=== PATIENT | female | born 1935 | race Caucasian/White ===

== ENCOUNTER 2020-11-20 09:49 | Outpatient (CLI) | payer MEDICARE, OTHER, SELFPAY ==
--- NOTE | 2020-11-20 10:15 | USCV_ITS ---
Wilfrido Olga Age: 85 Gender: F : 1935 Exam Date: 11/20/2020 10:01 Ordering Phys: Greta Akers MD ([email or web address]) Technologist: Monique Joyner Exam Location: [facility] [place] Indication: RECHECK OF CCA STENOSIS Risk Factors: Unknown Previous Vascular Surgery: None Right Brachial BP: / Left Brachial BP: / Right Left Velocity (cm/s) Spectral Plaque Velocity (cm/s) Spectral Plaque Syst/Diast Broadening Syst/Diast Broadening 67.10/ 9.00 Prox CCA 104.80/ 15.00 56.10/ 12.10 Mid CCA 61.40 / 12.40 119.40/18.20 Distal CCA 74.60 / 11.70 102.20/22.50 Prox ICA 119.60/ 34.20 104.90/25.70 Mid ICA 57.20 / 17.30 80.10/ 21.40 Distal ICA 74.40 / 18.20 101.20 ECA 164.70 0.88 ICA/CCA 1.14 Retrograde Vertebral Antegrade / cm/s 67.90/ 14.60 cm/s Bi Subclavian Tri 71.20 91.20 FINDINGS Moderate heterogeneous plaques of the right bifurcation and proximal internal carotid artery. Retrograde flow in the right vertebral artery. Delayed peaking monophasic waveforms in the left vertebral artery. Moderate heterogeneous plaques at the left bifurcation and proximal internal carotid artery Intimal thickening in the common carotid arteries bilaterally CONCLUSIONS 1. Moderate heterogeneous plaques at the bifurcations and proximal internal carotid arteries bilaterally suggesting less than 50% stenosis. 2. Retrograde flow in the right vertebral artery suggestive of high-grade stenosis in the proximal right subclavian artery 3. Abnormal Doppler flow signal seen in the left vertebral artery, suggestive of hemodynamically significant stenosis Consider CTA, to better evaluate the aortic arch vessels, especially the proximal segments. Compared to the study from 05/18/2019, the changes in the vertebral artery flow signals appear to be new Dr Greta Akers MD [facility] (Electronically Signed) Final Date: 21 November 2020 09:14 S
== END 2020-11-20 09:50 | disposition home or self-care (01) ==
PROVIDERS: PCP Family Medicine; Visit Provider Internal Medicine Cardiovascular Disease
DX: I77.9 Disorder of arteries and arterioles, unspecified (principal); I65.23 Occlusion and stenosis of bilateral carotid arteries
CPT/HCPCS: 93880

== ENCOUNTER 2020-11-23 12:47 | Outpatient (CLI) | payer MEDICARE, OTHER, SELFPAY ==
--- NOTE | 2020-11-23 13:00 | CT_ITS ---
WS: [id number] CT ANGIOGRAM CEREBRAL AND CAROTID ARTERIES HISTORY: I65.23 - Occlusion and stenosis of bilateral carotid arteries TECHNIQUE: CT angiogram is performed of the carotid and cerebral arteries. During arterial injection imaging is obtained from the skull vertex to the aortic arch in 1.25 mm imaging. Coronal and sagittal reformats are submitted. Additional multi planar reformats of the carotid and cerebral arteries are submitted, MIP imaging also reviewed. NASCET criteria utilized. All CT scans at [facility] use at least one of these dose optimization techniques: automated exposure control; mA and/or kV ad justment per patient size (includes targeted exams where dose is matched to clinical indication); or iterative reconstruction. CONTRAST: Visipaque 320; 95 mL IV. DLP: 1951.83 mGycm COMPARISON: None available. Noncontrast CT head. No acute hemorrhage. Moderate atrophy resulting in mild increase in the extra-ax ial spaces. Extensive atherosclerosis through the intracranial carotid arteries. Carotid Angiogram: Right carotid: Common carotid artery: Arises normally from the innominate artery. No significant plaque or stenosis. Internal carotid artery: Calcified plaque at the bifurcation. No high-grade stenosis. Calculated 25% stenosis. External carotid artery: Patent. Left carotid: Common carotid artery: Arises normally from the aorta. No significant plaque or stenosis. Internal carotid artery: Mild calcified plaque at the bifurcation with no high-grade stenosis. External carotid artery: Patent. Right vertebral artery: Unremarkable. Left vertebral artery: Unremarkable. Arises normally from the subclavian artery. Subclavian arteries: No stenosis or significant abnormality. Upper thorax: Lungs are clear. Prior CABG. Thyroid gland: Normal. Osseous structures: Spondylitic changes in the cervical spine. No fractures. CEREBRAL ANGIOGRAM: Intracranial vertebral arteries: Mild calcified plaque in the intracranial vertebral arteries. LEFT v ertebral artery is dominant. No occlusions. Basilar artery: Mild atherosclerosis. Intracranial Internal carotid arteries: Mild diffuse calcified plaque. More significant plaque throug h the cavernous sinuses and supraclinoid carotid artery with stenosis around 50%. No occlusions. Middle cerebral arteries: Normal. Anterior cerebral arteries and ACOM: Normal. Posterior cerebral arteries and PCOM's: Normal. Dural venous sinuses are normally enhancing. Mastoid air cells: Normal. Paranasal sinuses: Normal. Calvarium: Normal. CT/CT angio headneck* [id number] IMPRESSION: 1. No significant extracranial carotid artery stenosis. Calculated 25% on the RIGHT and less than 25% on the LEFT. 2. Moderate plaque through the intracranial carotid arteries involving the cav ernous sinuses and supraclinoid. Stenosis estimated at 50% bilaterally.
[2020-11-23 13:26] LABS: Blood Urea Nitrogen 11 mg/dL (8-23)
[2020-11-23] MEDS: iodixanol 320 mg/mL 100mL Btl IV (13:37)
== END 2020-11-23 12:48 | disposition home or self-care (01) ==
PROVIDERS: PCP Family Medicine; Visit Provider Internal Medicine Cardiovascular Disease
DX: I65.23 Occlusion and stenosis of bilateral carotid arteries (principal); Z01.812 Encounter for preprocedural laboratory examination
CPT/HCPCS: 70496; 70498; 82565; 84520; Q9967

== ENCOUNTER 2020-11-30 06:54 | Outpatient (CLI) | payer MEDICARE, OTHER, SELFPAY ==
--- NOTE | 2020-11-30 07:25 | ECG_ITS ---
[facility] Test Date: 2020-11-30 Pat Name: Olga Anna Department: Room: Gender: Female Field Interviewer: : 1935 Requested By: Greta Akers Order Number: [id number] Damien MD: Teodoro Mancini M.D. Interpretive Statements NAME OF STUDY: LEXISCAN SESTAMIBI STRESS TEST INDICATION: [Chest Pain; Shortness of Breath, ] Procedure: At the baseline, the blood pressure was 163/85 mmHg with a heart rate of 62 bpm. The electrocardiogram showed normal sinus rhythm, right bundle branch block with normal ST and T's. The Lexiscan was infused over a period of 20 seconds. A total of 0.4 mg of Lexiscan was infused. The stress phase was continued for a total of 5 minutes. Heart rate was at the end of stress phase was 73 bpm and a blood pressure of 189/67 mmHg. The EKG at the peak infusion revealed since normal sinus rhythm with no significant ST-T wave changes. Sestamibi was injected 20 seconds after the Lexiscan infusion. Blood pressure at the end of recovery phase was 167/72 mmHg with a heart rate of 71 bpm. Conclusion: 1. Normal EKG response to Lexiscan infusion 2. No Lexiscan induced chest pain or cardiac arrhythmia. 3. Normal blood pressure and heart rate response. 4. Sestamibi/sestamibi perfusion scan pending; see separate report. Electronically Signed On 12-09-2020 12:24:42 CDT by Teodoro Mancini M.D. [id number]
--- NOTE | 2020-11-30 07:25 | NMCV_ITS ---
NM ale perf SPECT r/s* [id number] Olga Anna Age: 85 Gender: F : 1935 Exam Date: 11/30/2020 08:41 Ordering Phys: Greta Akers MD ([email or web address]) Technologist: OTONIEL Teixeira Exam Location: [facility] Indications: SHORTNESS OF BREATH STRESS TEST Please [facility] IMAGE PROTOCOL Rest/Stress 1 Lexiscan Day Radiopharmaceutical Dose (mCi) Administration Site Administered by Rest: Tc-99m 10.6 IV OTONIEL Key Sestamibi Stress:Tc-99m 32.5 IV OTONIEL Teixeira Sestamicourtney Rest: 30-Nov-2020 60 Discovery 630 Stress: 30-Nov-2020 30 Discovery 630 0.4mg Lexiscan. Images obtained in supine and prone position. SPECT RESULTS Technical Quality: Excellent Raw Data Analysis: Normal Image Corrections: No attenuation or motion correction applied Summed Stress Score: 12 Summed Rest Score: 6 Summed Difference Score: 6 PERFUSION FINDINGS Moderate area of slightly decreased aseptic was noted in the mid and apical anterior, mid anterolateral, mid inferolateral, apical lateral and LV apex. Some reversibility was noted in all these regions at rest. FUNCTIONAL RESULTS (calculated via Gated SPECT) Stress Image LV EF (%): 80 Stress EDV (mL):91 TID: 1.11 Stress ESV (mL):18 FUNCTIONAL FINDINGS: Segmental wall motion analysis revealing no gross wall motion normalities. IMPRESSIONS 1. Myocardial perfusion imaging revealing some areas of reversible defect in the anterior, anterolateral, inferolateral and apical regions, suggestive of ischemia in the distribution of the left anterior descending and circumflex artery predominantly. 2. Normal LV ejection fraction of 80%. 3. LV wall motion analysis revealing no wall motion normalities. 4. Normal LV volume. Compared to the study from 05/18/2019, these changes appear to be new Dr Greta Akers MD [facility] (Electronically Signed) Final Date: 04 Dec 2020 10:27 S
[2020-11-30 07:37] VITALS: BMI 32.3
[2020-11-30] MEDS: regadenoson 0.4 Mg/5 ml Syringe IVP (09:40)
[2020-11-30 09:58] VITALS: BP 167/72; PULSE 76
== END 2020-11-30 06:55 | disposition home or self-care (01) ==
LOC: CDL 06:54
PROVIDERS: PCP Family Medicine; Visit Provider Internal Medicine Cardiovascular Disease
DX: R07.9 Chest pain, unspecified (principal)
CPT/HCPCS: 78452; 93017; A9500; J2785

== ENCOUNTER 2020-12-08 10:43 | Outpatient (CLI) | payer MEDICARE, OTHER, SELFPAY ==
--- NOTE | 2020-12-08 11:00 | USCV_ITS ---
Olga Anna Age: 85 Gender: F : 1935 Exam Date: 12/08/2020 11:23 Ordering Phys: Greta Akers MD ([email or web address]) Technologist: Catherine Butler Exam Location: [facility] [place] Indication: claudication, leg pain Risk Factors: Previous Vascular Surgery: none RIGHT LEFT BP: 142.0 / 87.00 BP: 150.0/ 72.00 0 0 Waveform Velocity (cm/s) Velocity (cm/s) Waveform Triphasic 101.8 Iliac Prox 90.9 Triphasic Triphasic Iliac Mid Triphasic 108.1 95.3 Triphasic 92.3 Iliac Distal 84.5 Triphasic Triphasic 76.2 MINE FOREMAN 94.6 Triphasic Triphasic 63.7 SFA Prox 111.5 Triphasic Triphasic 63.7 SFA Mid 101.0 Triphasic Triphasic 84.6 SFA Dist 79.2 Triphasic Triphasic 74.3 POP 76.8 Triphasic Biphasic 48.6 GLUE BONE CRUSHER 28.6 Biphasic Biphasic 74.6 DPA 70.5 Biphasic 0.9 ANTHONY 1.7 FINDINGS RT DPA- 130mmHg GLUE BONE CRUSHER 120mmHg LT DPA >220mmHg LT GLUE BONE CRUSHER >220mmHg Mild to moderate diffuse plaques in the iliac and femoral arteries bilaterally Abnormal Doppler waveforms in the infrapopliteal vessels bilaterally . Noncompressible vessels on the left side CONCLUSIONS Mild to moderate diffuse plaques in the iliac and femoral arteries bilaterally Slightly diminished resting ANTHONY on the right side, suggesting mild peripheral artery disease Noncompressible vessels on the left side No significant arterial obstruction based on the above findings Dr Greta Akers MD [facility] (Electronically Signed) Final Date: 08 Dec 2020 13:11 S
== END 2020-12-08 10:44 | disposition home or self-care (01) ==
LOC: RAD 10:45
PROVIDERS: PCP Family Medicine; Visit Provider Internal Medicine Cardiovascular Disease
DX: I73.9 Peripheral vascular disease, unspecified (principal); M79.604 Pain in right leg; M79.605 Pain in left leg; I70.8 Atherosclerosis of other arteries
CPT/HCPCS: 93925

== ENCOUNTER → 2020-12-14 10:08 | Outpatient (BNVA) | payer MEDICARE, OTHER, SELFPAY | PROVIDERS: PCP Family Medicine; Visit Provider Internal Medicine Cardiovascular Disease | DX: I25.118 Atherosclerotic heart disease of native coronary artery with other forms of angina pectoris (principal) | CPT/HCPCS: 87635 ==

== ENCOUNTER 2020-12-20 06:59 | Day surgery (SDC) | payer MEDICARE, OTHER, SELFPAY ==
[2020-12-14 09:54] LABS: Basophils % 0.6 %; Eosinophils # 0.1 10^3/uL (0.0-0.8); Eosinophils % 2.9 %; Hematocrit 35.3 % (37.0-47.0); Lymphocytes # 0.9 10^3/uL (0.8-4.8); Lymphocytes % 25.7 %; Mean Corpuscular HGB Conc 31.2 g/dL (30.0-36.0); Mean Corpuscular Hemoglobin 25.2 pg (28.0-34.0); Mean Platelet Volume 10.3 fL (7.4-10.4); Monocytes # 0.2 10^3/uL (0.2-0.9); Monocytes % 6.7 %; Neutrophils # 2.18 10^3/uL (1.8-7.7); Neutrophils % 63.8 %; Nucleated Red Blood Cells % 0 %; Platelet Count 239 10^3/cmm (130-400); Red Blood Count 4.36 10^6/uL (4.1-5.3); Red Cell Distribution Width 15.8 % (12.1-15.1); White Blood Count 3.4 10^3/uL (4.0-10.0)
[2020-12-14 10:05] LABS: INR 0.96 (0.8-1.2)
[2020-12-14 10:09] LABS: Alanine Aminotransferase 12 U/L (0-33); Alkaline Phosphatase 94 IU/L (35-105); Anion Gap 12.5 (5-19); Aspartate Amino Transferase 15 U/L (0-32); Blood Urea Nitrogen 17 mg/dL (8-23); Calcium 9.1 mg/dL (8.5-10.5); Carbon Dioxide 27 mmol/L (22-29); Chloride 94 mmol/L (98-107); Globulin 2.9 g/dL (1.3-4.6); Glucose 472 mg/dL (65-115); Osmolality Calculated 290 mOsm/kg (285-295); Potassium 4.5 mmol/L (3.5-5.1); Sodium 129 mmol/L (136-145); Total Bilirubin 0.3 mg/dL (0.15-1.2); Total Protein 6.9 g/dL (6.6-8.7)
[2020-12-20] VITALS (28 sets, daily range): BP systolic 113–197; BP diastolic 57–138; PULSE 59–79; RESP 13–26; TEMP 36.6; O2SAT 91–97; BMI 30.4
--- NOTE | 2020-12-20 07:30 | XACV_ITS ---
Ht: 168 cm Wt: 84 kg BSA: 2.01 m2 Gender: Female : 1935 Exam Priority: Routine Procedure(s): Procedure Description: Diagnostic procedure Procedure Description: Left Heart Catheterization Procedure Description: Miscellaneous Procedure Description: ACT Procedure Description: Pressure wire Diagnostic Cath Status: Elective Diagnostic Findings * The left main is a medium caliber vessel with mild diffuse coronary calcification. The distal left main has around 20% narrowing. * The left anterior r descending artery is a medium caliber vessel which is found to have mild diffuse disease proximally. Right after the first septal director of finance, there appears to be high-grade lesion. Competitive blood flow was noted in the mid to distal LAD. The first diagonal artery appears to be originating right after the stenosis at the proximal to mid segment. The mid LAD was found to have mild diffuse disease. * The circumflex artery is a medium to large caliber vessel which gives of small caliber obtuse marginal vessels in the proximal and mid segment. After the second obtuse marginal branch, the artery appears to bifurcate. Before the bifurcation, there were 2 tandem lesions of 50 to 60%. The distal stump of the occluded venous graft to the obtuse marginal was noted in one of the bifurcation branches. * The right coronary artery is a medium to large caliber dominant vessel which was found to have mild diffuse intimal irregularities. The PDA and the PLV branches also were found to have areas of mild to moderate diffuse narrowing. No significant extremity lesions were noted. * The venous graft to the obtuse marginal artery was found to be totally occluded at the proximal anastomotic site. * The venous graft to the diagonal branch also was found to be totally occluded at the proximal anastomotic site. * The VOGT to the LAD was somewhat difficult to engage selectively. The artery appears to be widely patent with no significant stenotic lesions. Interventional Findings * PROCEDURE DETAIL: : We engaged left main artery with XB 3.5 guide catheter. IV heparin was administered to maintain an ACT above 250 seconds. FFR wire was used to cross the circumflex artery stenosis and first advanved into OM2 to measure the FFR which gave a value of 0.95 followed by placing it in OM 3 that gave a value of 0.92. At this time final angiogram was performed that showed excellent stent expansion, LIZANDRO-3 flow and no residual stenosis. Guidewire and guide catheter were removed. Patient left the Provider Network Manager in a stable condition. Conclusions 1. Cardiac catheterization revealing high-grade lesion in the proximal to mid LAD. 50 to 60% tandem lesions in the distal circumflex before his bifurcation. Mild to moderate diffuse disease in the other vessels. Patent VOGT to the LAD. Occluded venous grafts to the diagonal and obtuse marginal artery. 2. I reviewed and discussed the cardiac catheterization data with the daughter Live. Was thought to be appropriate to consider FFR of the circumflex artery lesion. Dr. Mancini took over further management this patient at this point. 3. FFR was non ischemic. Recommendations * The FFR was found to be insignificant. Based on this, it was opted to treat the patient medically. * Aggressive risk factor control. * Follow up with cardiology office in 4 weeks. Diagnostic RX Recommendation: other cardiac therapy w/o CABG/PCI Left Ventriculography Findings: * LV gram was not performed because of some technical difficulties. Clinical Evaluation EBL: 5mL-10mL Procedural Details Procedure Consent Obtained. Admit Source: Out Patient. Pre-Procedure Time Out. Identified patient by full name and date of as verbalized by the patient/guarantor. Does the consent match the physician's order: Yes. Accurate & Complete Informed Consent: Yes. Inpatient/Outpatient History & Physical on Chart: Yes. If H&P is completed, is and addenduem needed: Yes; If yes, is the addendum complete: N/A. Visualize and Verify Site with Patient/Guarantor: N/A. Relevant Radiology Images available: N/A. Pre-op teaching completed and patient verbalized understanding. The risks, benefits, and alternatives of sedation and/or procedure were discussed by physician. The patient agrees to continue. Procedure started. Correct patient, site and procedure confirmed by cath team. PERRLA. Strong, equal hand exhaust emissions automotive technician bilaterally. Lungs clear x 5 lobes. IV Site on Arrival: 20 gauge in the left anticubital. Pre Procedural Pulses: bilateral dorsalis pedis was 2+. Pre Procedural Pulses: bilateral posterior tibial was 1+. Pre Procedural Pulses: right radial was 2+. Oxygen started at 2liters/min via nasal canula. bilateral groins was prepped with chloroprep then draped in the usual sterile fashion. Physician notified. Baseline sample Acquired. HR: 58 BPM. Physician arrived. Physician scrubbed in. Immediate Pre-Procedure Time Out. Correct Patient: Yes; Correct Procedure: Yes; Correct Site: Yes; Correct Patient Position: Yes; Correct Supplies: Yes; Dried Flammable Prep: Yes; Blood Products Available: N/A;. Lidocaine 1% infiltrated to the right groin. venous access. Trying again for arterial. Venous access obtained with a micropuncture set. Arterial access obtained with micropuncture set. A 5 nigerien JL4 catheter in over wire. Multiple views taken of left coronary artery. Catheter out. A 5 nigerien JR4 catheter in over wire. Multiple views taken of right coronary artery. SVG to Diaganol occluded. SVG to OM occluded. Catheter out. A 5 nigerien IM catheter in over wire. VOGT to LAD visualized. Catheter out. A 5 nigerien Angled Pig catheter in over wire. Catheter out. Dr. Mancini scrubbed in to perform intervention. [facility] Clinical Fraility Score: 4: Vulnerable. Provider Network Manager Indications: Worsening Angina. Chest Pain Symptom Assessment: Atypical Angina. Cardiovascular Instability: No,. Sheath upsized to a 6 Fr. 6 nigerien XB 3.5 guide catheter was inserted over the wire. Guide catheter out. 6 nigerien XB 3 guide catheter was inserted over the wire. FFR guidewire was advanced through the guide catheter to lesion in the mid Circ. An FFR value of 0.95 was obtained for a lesion located at Mid CX. FFR wire redirected to OM. An FFR value of 0.92 was obtained for a lesion located at Lat 2nd Ob Sherri. Wire out. Guide catheter out. groin shot performed. ACT drawn. Results 181 seconds. Therapeutic limits - pre-heparin administration 90-150 seconds and monitoring heparin during a vascular procedure >250 seconds. Sheath(s) sutured into position with 2-0 silk and sterile 4x4's and Op-site applied over the site. No oozing or signs and symptoms of hematoma noted. Post Procedure: Pulses reassessed and unchanged. PERRLA. Strong, equal hand exhaust emissions automotive technician bilaterally. No VTE prophylaxis required. A Suture was successful obtaining hemostatsis at the Right Femoral vein insertion site. A Suture was successful obtaining hemostatsis at the Right Femoral artery insertion site. Medication's Wasted: Lidocaine 1% = 18 mL. Medication's Wasted: Heparin = 2500 units. Medication's Wasted: Other = hydralazine 10 mg. Medication's Wasted: Other = adenosine 40 mg. Total IV fluids: 150 mL. Contrast type used: Omnipaque 300 mgI/mL, 500 mL bottle. Omnipaque 261mL. Post-op diagnosis: moderate LCX stenosis. Complications: none. Estimated blood loss: 5mL-10mL. Procedure completed. Patient transferred by bed to 1st floor. Vital chart was stopped. Access Site Site: Right Femoral vein Sheath Size: 5 Fr Hemostasis Method: Suture Hemostasis Success: Successful Site: Right Femoral artery Sheath Size: 5 Fr Hemostasis Method: Suture Hemostasis Success: Successful Procedure Medications Start: 9:27 AM Stop: 9:27 AM Medication: Versed Amount: 1 mg Route: I.V. Start: 9:27 AM Stop: 9:27 AM Medication: Fentanyl Amount: 50 mcg Route: I.V. Start: 9:33 AM Stop: 9:33 AM Medication: Versed Amount: 1 mg Route: I.V. Start: 9:33 AM Stop: 9:33 AM Medication: Fentanyl Amount: 50 mcg Route: I.V. Start: 9:44 AM Stop: :44 AM Medication: Heparin Amount: 1500 units Route: I.V. Start: 10:02 AM Stop: 10:02 AM Medication: Heparin Amount: 5000 units Route: I.V. Start: 10:08 AM Stop: 10:08 AM Medication: Versed Amount: 1 mg Route: I.V. Start: 10:08 AM Stop: 10:08 AM Medication: Fentanyl Amount: 50 mcg Route: I.V. Start: 10:15 AM Stop: 10:15 AM Medication: Hydralazine Amount: 10 mg Route: I.V. Start: 10:28 AM Stop: 10:28 AM Medication: Versed Amount: 1 mg Route: I.V. Start: 10:28 AM Stop: 10:28 AM Medication: Fentanyl Amount: 50 mcg Route: I.V. I, the attending physician, have reviewed and verified all procedure medications. Yes, all medications given per verbal order History/Risk Factors Hypertension: Yes Dyslipidemia: Yes Tobacco Use: Never Prior Interventions CABG: Yes Report Signatures Interventional Workflow Finalized by Teodoro Mancini MD on 01/03/2021 10:00 PM Diagnostic Workflow Finalized by Dr Greta Akers MD [facility] on 12/21/2020 12:53 AM
[2020-12-20] MEDS: diphenhydrAMINE 50 mg Capsule PO (08:06)
--- NOTE | 2020-12-20 09:19 | W.PM.OPSUD ---
Surgery/Procedure H&P Update DATE OF PROCEDURE: December 20, 2020 DATE H&P PERFORMED: 12/06/20 H&P UPDATE INFORMATION: I have reviewed H&P completed within last 30 days, I have examined patient prior to procedure and No changes to prior documentation PREOP DIAGNOSIS: ASHD, abnormal myocardial perfusion imaging PLANNED PROCEDURE: Operation Date: 12/20/20 08:30 Proposed Procedures p left Cardiac Catheterization 86869 I25.10(Left) - Greta Akers MD PATIENT REASSESSED PRIOR TO SEDATION, WITH NO CHANGE NOTED: Yes PHYSICAL EXAM: alert, clear to auscultation bilaterally and regular rate & rhythm AIRWAY EVAL/ANESTHESIA PLAN: normal airway, ASA II, Monitored Anesthesia, Local Anesthesia, Risks, benefits & alternatives of sedation and/or procedure discussed and Patient agrees to continue as planned
[2020-12-20 13:43] LABS: Partial Thromboplastin Time 58.6 SECONDS (23.9-36.7)
[2020-12-20 17:13] LABS: Glucose Point of Care 361 mg/dL (70-110)
[2020-12-20] MEDS: amlodipine 5 mg Tablet PO (17:26)
--- NOTE | 2020-12-20 18:46 | PC.NURSE ---
PATIENT HAD DIFFICULTLY URINATING AFTER SEVERAL ATTEMPTS ON THE BEDPAN. NOTIFIED DR. PARNELL AND ORDERED TO DO ONE STRAIGHT CATH. OBTAINED 1200 ML OF URINE. WILL CONTINUE TO MONITOR.
[2020-12-20 20:14] LABS: Glucose Point of Care 269 mg/dL (70-110)
--- NOTE | 2020-12-20 21:30 | PC.NURSE ---
NURSING NOTE: PT UP POST CARDIAC SHEATH REMOVAL AT THIS TIME
[2020-12-20 23:26] LABS: Glucose Point of Care 52 mg/dL (70-110)
[2020-12-21 00:06] LABS: Glucose Point of Care 127 mg/dL (70-110)
[2020-12-21 04:00] VITALS: BP 149/92; PULSE 71; RESP 19; TEMP 36.6; O2SAT 95
[2020-12-21 05:28] VITALS: PULSE 67
--- NOTE | 2020-12-21 05:47 | NUR.SHIFT ---
NURSING NOTE: PT POST CARDIAC SHEATH REMOVAL/ UP AT 2130 WITH SBA X1. PT TOLERATED ACTIVITY WITHOUT DISTRESS. RIGHT GROIN SIGHT DRESSING DRY AND INTACT. NO NEW DRAINAGE NOTED. ALL VS AND ASSESSMENTS CHARTED. PT DENIES PAIN OR DISCOMFORT AT SITE. CURRENTLY RESTING WITH EYES CLOSED . RESP EVEN AND NON LABORED. NO DISTRESS AT THIS TIME.
[2020-12-21 07:05] LABS: Glucose Point of Care 371 mg/dL (70-110)
[2020-12-21 08:00] VITALS: BP 150/50; PULSE 71; RESP 18; TEMP 36.6; O2SAT 96
[2020-12-21] MEDS: insulin glargine 100 units/1 mL 15 UNIT SUBCUT (08:14)
[2020-12-21] MEDS: psyllium powder Pkt 1 PACKET PO (08:14)
[2020-12-21] MEDS: escitalopram 10 mg Tablet PO (08:15)
[2020-12-21] MEDS: aspirin 81 mg EC Tablet 162 MG PO (08:15)
[2020-12-21] MEDS: amlodipine 5 mg Tablet PO (08:15)
[2020-12-21] MEDS: isosorbide mononitrate ER 30 mg Tablet PO (08:15)
[2020-12-21] MEDS: pantoprazole DR 40 mg Tablet PO (08:15)
--- NOTE | 2020-12-21 08:40 | PC.NURSE ---
Patient ambulated with nursing assistance approximately 150 feet with no issues.
[2020-12-21 08:42] VITALS: BP 150/50; PULSE 71; RESP 18; TEMP 36.6; O2SAT 96
== END 2020-12-21 09:19 | disposition home or self-care (01) ==
LOC: CCL 08:07 → CSU 12-21 07:59
PROVIDERS: Internal Medicine; PCP Family Medicine; Visit Provider Internal Medicine Cardiovascular Disease
DX: I25.118 Atherosclerotic heart disease of native coronary artery with other forms of angina pectoris (principal); R53.1 Weakness; Z79.01 Long term (current) use of anticoagulants; E11.9 Type 2 diabetes mellitus without complications; Z79.82 Long term (current) use of aspirin; Z79.4 Long term (current) use of insulin; E78.5 Hyperlipidemia, unspecified; I65.23 Occlusion and stenosis of bilateral carotid arteries; R29.898 Other symptoms and signs involving the musculoskeletal system
CPT/HCPCS: 36415; 36416; 51702; 80053; 82962; 85025; 85347; 85610; 85730; 86850; 86900; 93455; 93571; 96372; C1769; C1887; C1894; J0153; J0360; J1644; J1815 ×2; J2250; J3010; J7030; Q0163; Q9967

== ENCOUNTER → 2020-12-28 10:41 | Outpatient (BNVA) | payer MEDICARE, OTHER, SELFPAY | PROVIDERS: PCP Family Medicine; Visit Provider Nurse Practitioner Family | DX: I25.118 Atherosclerotic heart disease of native coronary artery with other forms of angina pectoris (principal) | CPT/HCPCS: 80048 ==

== ENCOUNTER 2021-04-20 15:30 | Outpatient (CLI) | payer MEDICARE, OTHER, SELFPAY ==
--- NOTE | 2021-04-20 15:33 | MR_ITS ---
WS: [id number] MRI BRAIN WITHOUT CONTRAST HISTORY: CHRONIC NECK Pain; atypical Headache; dizziness COMPARISON: 07/08/2007 TECHNIQUE: Diffusion imaging, multiplanar T1, T2 and FLAIR imaging obtained. No evidence for acute infarct or hemorrhage. Carver-white matter differentiation is normal. Mild and symmetric atrophy with mild chronic microvascular ischemic changes. Microvascular ischemic c hange is very minimally progressed since 2006. No infarct. Small lacunar in the RIGHT external capsul e versus perivascular space. Ventricles and extra-axial spaces are normal. No inferior displacement of cerebellar tonsils. The sella turcica and pituitary gland are unremarkabl e. Dural venous sinuses and douglas of Moon demonstrate no abnormality on this unenhanced studies. Paranasal sinuses: Clear. Mastoid air cells: Normal. Calvarium and scalp: Intact. MR/MR head wo con* [id number] IMPRESSION: 1. No acute infarct. 2. Mild cerebral atrophy and chronic microvascular ischemic disease which is m inimally progressed since 2006. 3. No signal abnormalities.
--- NOTE | 2021-04-20 15:33 | MR_ITS ---
WS: [id number] MRI CERVICAL SPINE NONCONTRAST HISTORY: CHRONIC NECK Pain; atypical Headache; dizziness COMPARISON: 09/10/2011 Technique: Multiplanar, multisequence noncontrast imaging of the cervical spine. Straightening of the normal cervical lordosis with 2.6 mm retrolisthesis of C3-4 which is similar to the prior study. Disc spaces are narrowed throughout. Vertebral body osteophytes are most significant at C4 and C5. No acute fracture or marrow edema. Signal within the cervical cord is normal. Visualized posterior fossa is unremarkable. Craniocervical junction, C1 and C2 relationship, odontoid process and soft tissues are normal. C2-C3: Minimal osteophytic ridging with no stenosis. C3-C4: Mild osteophytic ridging with mild effacement of ventral CSF and small central disc protrusion . No stenosis. C4-C5: Diffuse osteophytic ridging and annular disc bulging. Disc and osteophyte complexes extend int o the neural foramen, greater on the RIGHT. Mild central and bilateral foraminal stenosis. C5-C6: Diffuse osteophytic ridging and annular disc bulging. Disc osteophyte complexes extend into th e neural foramen bilaterally. Moderate RIGHT and mild to moderate LEFT foraminal stenosis. C6-C7: Diffuse annular disc bulging and mild osteophytic ridging. Facet joint arthritis encroaching i nto the foramen. Moderate RIGHT and mild LEFT foraminal stenosis. C7-T1: Mild facet joint arthritis. No significant stenosis. Paraspinal soft tissue are normal. MR/MR cervical spin wo con* [id number] IMPRESSION: 1. Multilevel mild to moderate cervical spondylosis with mild progression sinc e 2011. No high-grade central stenosis. 2. No acute fractures. 3. Moderate RIGHT foraminal stenosis due to disc osteophyte disease at C5-6 an d C6-7. 4. Mild central and bilateral foraminal stenosis at C4-5. 5. Mild to moderate LEFT foraminal stenosis at C5-6.
== END 2021-04-20 15:31 | disposition home or self-care (01) ==
LOC: RADSHAW 15:31
PROVIDERS: PCP Family Medicine; Visit Provider Family Medicine
DX: R51.9 Headache, unspecified (principal); R42 Dizziness and giddiness; I67.82 Cerebral ischemia; G31.9 Degenerative disease of nervous system, unspecified; M47.812 Spondylosis without myelopathy or radiculopathy, cervical region; M48.02 Spinal stenosis, cervical region; M25.78 Osteophyte, vertebrae
CPT/HCPCS: 70551; 72141

== ENCOUNTER 2021-06-08 06:00 | Outpatient (RCR) | payer MEDICARE, OTHER, SELFPAY | END 2021-07-03 23:59 | disposition home or self-care (01) | LOC: SPT 06:00 | PROVIDERS: PCP Family Medicine; Referring Provider Specialist; Visit Provider Specialist | DX: R26.9 Unspecified abnormalities of gait and mobility (principal); R42 Dizziness and giddiness | CPT/HCPCS: 95992; 97110; 97162; 97164 ==

== ENCOUNTER 2021-08-24 09:27 | Outpatient (CLI) | payer MEDICARE, OTHER, SELFPAY ==
--- NOTE | 2021-08-24 09:40 | MM_ITS ---
WS: [id number] BILATERAL DIGITAL SCREENING MAMMOGRAPHY WITH CAD CLINICAL INFORMATION: SCREENING HISTORY: Screening mammogram. Right-sided breast pain. Axillary soreness. COMPARISON: 018 TECHNIQUE: Bilateral CC and MLO views. FINDINGS: Scattered fibroglandular densities bilaterally. Punctate and secretory calcifications. Lucent centere d calcifications. No suspicious focal mass, asymmetry, calcifications, or architectural distortion. N o evidence of malignancy. MM/[place] [id number] IMPRESSION: BI-RADS: 2-Benign FOLLOW UP: 1 Year Follow-up Recommend return to annual screening mammography.
== END 2021-08-24 09:28 | disposition home or self-care (01) ==
LOC: RADSHAW 09:33
PROVIDERS: PCP Family Medicine; Visit Provider Family Medicine
DX: Z12.31 Encounter for screening mammogram for malignant neoplasm of breast (principal)
CPT/HCPCS: 77067

== ENCOUNTER → 2021-11-01 11:30 | Outpatient (BNVA) | payer MEDICARE, OTHER, SELFPAY | PROVIDERS: PCP Family Medicine; Visit Provider Internal Medicine Cardiovascular Disease | DX: I77.9 Disorder of arteries and arterioles, unspecified (principal); I65.23 Occlusion and stenosis of bilateral carotid arteries; R06.02 Shortness of breath; I25.10 Atherosclerotic heart disease of native coronary artery without angina pectoris; R55 Syncope and collapse | CPT/HCPCS: 99214 ==

== ENCOUNTER 2021-12-11 14:55 | Outpatient (CLI) | payer MEDICARE, OTHER, SELFPAY ==
--- NOTE | 2021-12-11 15:15 | USCV_ITS ---
Olga Anna Age: 86 Gender: F : 1935 Exam Date: 12/11/2021 15:22 Ordering Phys: Great Akers MD ([email or web address]) Technologist: Esau Valdivia Exam Location: [facility] – [place], [place] Indication: carotid stenosis Risk Factors: Previous Vascular Surgery: Right Brachial BP: / Left Brachial BP: / Right Left Velocity (cm/s) Spectral Plaque Velocity (cm/s) Spectral Plaque Syst/Diast Broadening Syst/Diast Broadening 115.70/6.60 Prox CCA 117.00/ 11.40 77.70/ 10.10 Mid CCA 70.10 / 7.70 69.90/ 13.20 Distal CCA 82.90 / 14.50 69.90/ 16.30 Prox ICA 79.40 / 16.50 144.40/32.00 Mid ICA 161.60/ 41.90 92.60/ 26.50 Distal ICA 102.50/ 26.40 96.30 ECA 150.70 1.86 ICA/CCA 2.31 Antegrade Vertebral Antegrade 17.90/ 8.50 cm/s 104.1/ 24.90 cm/s 0 Bi Subclavian Tri 60.60 85.40 FINDINGS Minimal plaques at the bifurcations bilaterally. Due to drop in velocities in the mid ICA bilaterally Bidirectional flow in the right vertebral artery. Normal Doppler flow velocities in the subclavian arteries bilaterally CONCLUSIONS Elevated velocity in the mid internal carotid artery bilaterally, may suggest hemodynamically significant stenosis. Bidirectional flow in the right vertebral artery suggestive of high-grade stenosis in the proximal subclavian artery on the right side Because of the differences in the technical quality, comparison with the previous study is difficult-possibly no significant change from the previous study Dr Greta Akers MD [facility] (Electronically Signed) Final Date: 11 Dec 2021 16:51 S
== END 2021-12-11 14:56 | disposition home or self-care (01) ==
LOC: RAD 14:58
PROVIDERS: PCP Family Medicine; Visit Provider Internal Medicine Cardiovascular Disease
DX: I65.23 Occlusion and stenosis of bilateral carotid arteries (principal); I77.9 Disorder of arteries and arterioles, unspecified
CPT/HCPCS: 80053; 80061; 82607; 83036; 83880; 84443; 85025; 93880

== ENCOUNTER 2022-01-11 12:50 | Outpatient (CLI) | payer MEDICARE, SELFPAY ==
--- NOTE | 2022-01-11 13:06 | USCV_ITS ---
Olga Anan Age: 86 Gender: F : 1935 Exam Date: 01/11/2022 13:40 Ordering Phys: Dallas Lorenzana MD Technologist: Esau Valdivia [place]am Location[place] [facility] [place] Indication: CHF BP: 132 / 70 HR: 60 Rhythm: Sinus Technical Quality: Adequate MEASUREMENTS (Male / Female) Normal Values 2D ECHO LV Diastolic Diameter PLAX 4.9 cm 4.2 - 5.9 / 3.9 - 5.3 cm LV Systolic Diameter PLAX 3.3 cm IVS Diastolic Thickness 0.7 cm 0.6 - 1.0 / 0.6 - 0.9 cm IVS Systolic Thickness 1.0 cm LVPW Diastolic Thickness 1.1 cm 0.6 - 1.0 / 0.6 - 0.9 cm LVPW Systolic Thickness 1.7 cm LVOT Diameter 2.0 cm LV Ejection Fraction 2D Teich 62.2 % LV Ejection Fraction MOD 2C 66.3 % LV Ejection Fraction 2C AL 66.4 % LA Diameter 3.2 cm LA Width 2.9 cm LA Height 5.1 cm RA Width 3.5 cm RA Height 5.2 cm Aorta at Sinotubular Diameter 2.0 cm IVC Diameter 1.3 cm M-MODE Aortic Annulus Diameter 2.8 cm LA Ao Ratio MM 1.1 MV E Point Septal Separation 0.5 cm DOPPLER AV Peak Velocity 172.0 cm/s LVOT Peak Velocity 111.0 cm/s AV Area Cont Eq vti 2.2 cm squared AV Area Cont Eq pk 2.1 cm squared MV Peak Velocity 186.0 cm/s MV Area PHT 2.7 cm squared Mitral E to A Ratio 0.9 MV E' Velocity 75.5 cm/s Mitral E to MV E' Ratio 22.9 Mitral E to LV E' Lateral Ratio 26.6 Mitral E to LV E' Septal Ratio 20.3 TR Peak Velocity 398.0 cm/s TR Peak Gradient 63.4 mmHg TR Mean Velocity 291.9 cm/s TR Mean Gradient 38.9 mmHg TR Velocity Time Integral 124.7 cm Right Atrial Pressure 3.0 mmHg Pulmonary Artery Systolic Pressu 66.4 mmHg RV Acceleration Time 0.1 s RV Ejection Time 0.3 s RV AcT/ET 0.4 FINDINGS Left Ventricle Normal left ventricular size and systolic function, EF 69 %. Mild left ventricular hypertrophy. No regional wall motion abnormalities. Grade I/IV diastolic dysfunction (abnormal relaxation filling pattern), normal to mildly elevated filling pressures. Right Ventricle The right ventricle is normal in size and function. Right Atrium The right atrium is normal in size. Left Atrium Moderately increased left atrial size. Mitral Valve Moderate mitral annular calcification. Moderate mitral valve regurgitation. Aortic Valve Thickened aortic valve. Aortic valve sclerosis. Tricuspid Valve Mild to moderate tricuspid valve regurgitation. Pulmonic Valve Trace pulmonary valve regurgitation. Pericardium Normal pericardium without effusion. Aorta Plaque seen in the ascending aorta. IVC The inferior vena cava pulmonary and hepatic veins appear normal. CONCLUSIONS Normal left ventricular size and systolic function, EF 69 %. Mild left ventricular hypertrophy. No regional wall motion abnormalities. Grade I/IV diastolic dysfunction (abnormal relaxation filling pattern), normal to mildly elevated filling pressures. Moderate mitral annular calcification. Moderate mitral valve regurgitation. Moderately increased left atrial size. Features of aortic valve sclerosis Mild to moderate tricuspid valve regurgitation. Moderate pulmonary hypertension with an estimated pulmonary artery peak systolic pressure of 66 mmHg. Trace pulmonary valve regurgitation. Plaque seen in the ascending aorta. There is no pericardial effusion. There are no intracardiac masses. No similar previous studies are available for comparison Dr Greta Akers MD [facility] (Electronically Signed) Final Date: 12 January 2022 17:13 S
== END 2022-01-11 12:51 | disposition home or self-care (01) ==
LOC: RAD 12:57
PROVIDERS: PCP Family Medicine; Visit Provider Family Medicine
DX: I50.9 Heart failure, unspecified (principal)
CPT/HCPCS: 93306

== ENCOUNTER → 2022-03-07 09:21 | Outpatient (BNVA) | payer MEDICARE, SELFPAY | PROVIDERS: PCP Family Medicine; Visit Provider Family Medicine | DX: R53.1 Weakness (principal); I10 Essential (primary) hypertension; I25.10 Atherosclerotic heart disease of native coronary artery without angina pectoris; E78.2 Mixed hyperlipidemia; E11.9 Type 2 diabetes mellitus without complications; Z79.4 Long term (current) use of insulin; R30.0 Dysuria; E78.5 Hyperlipidemia, unspecified | CPT/HCPCS: 80053; 81000; 82607; 83036; 83880; 85025; 86140; 87086 ==

== ENCOUNTER → 2022-03-25 09:11 | Outpatient (BNVA) | payer MEDICARE, SELFPAY | PROVIDERS: PCP Family Medicine; Visit Provider Family Medicine | DX: E87.1 Hypo-osmolality and hyponatremia (principal); I10 Essential (primary) hypertension | CPT/HCPCS: 80048 ==

== ENCOUNTER → 2022-05-01 11:07 | Outpatient (BNVA) | payer MEDICARE, SELFPAY | PROVIDERS: PCP Family Medicine; Visit Provider Internal Medicine Cardiovascular Disease | DX: I25.118 Atherosclerotic heart disease of native coronary artery with other forms of angina pectoris (principal); Z95.1 Presence of aortocoronary bypass graft; I10 Essential (primary) hypertension; I65.23 Occlusion and stenosis of bilateral carotid arteries; E78.2 Mixed hyperlipidemia; E11.9 Type 2 diabetes mellitus without complications; Z79.4 Long term (current) use of insulin; I77.1 Stricture of artery | CPT/HCPCS: 99214 ==

== ENCOUNTER → 2022-07-09 09:02 | Outpatient (BNVA) | payer MEDICARE, SELFPAY | PROVIDERS: PCP Family Medicine; Visit Provider Family Medicine | DX: E87.1 Hypo-osmolality and hyponatremia (principal); I25.10 Atherosclerotic heart disease of native coronary artery without angina pectoris; I10 Essential (primary) hypertension; E78.5 Hyperlipidemia, unspecified; E11.9 Type 2 diabetes mellitus without complications; Z79.4 Long term (current) use of insulin | CPT/HCPCS: 80053; 80061; 83036; 85025 ==

== ENCOUNTER 2022-07-16 15:04 | Outpatient (CLI) | payer MEDICARE, SELFPAY ==
--- NOTE | 2022-07-16 15:30 | CT_ITS ---
WS: [id number] CTA HEAD AND NECK TECHNIQUE: Contrast enhanced CTA of the head and neck with coronal and sagittal reformatted images an d maximum intensity projection (MIP) images. NASCET criteria utilized. CLINICAL INFORMATION: vertebral steal/ Mid ICA stenosis COMPARISON: Ultrasound December 11, 2021 and CTA November 23, 2020 DLP: 1467.[address] scans at [facility] use at least one of these dose optimization techniques: automated e xposure control; mA and/or kV adjustment per patient size (includes targeted exams where dose is matc hed to clinical indication); or iterative reconstruction. FINDINGS: RIGHT: RIGHT common carotid artery is patent. Moderate atheromatous plaque RIGHT carotid bulb extendi ng into the ICA. ICA is patent to the skull base. RIGHT ICA stenosis 25% LEFT: LEFT common carotid artery is patent. Moderate atheromatous plaque LEFT carotid bulb extending into the ICA slightly progressed compared to previous. LEFT ICA is patent to the skull base.. LEFT IC A stenosis 56%. LEFT ICA stenosis progressed compared to previous INTRACRANIAL CTA: LEFT dominant vertebral artery. LEFT vertebral artery is patent. RIGHT proximal vertebral artery is p atent. No flow in the mid RIGHT vertebral artery. This reconstitutes distally. Proximal basilar arter y is patent. RIGHT subclavian artery appears patent. Images somewhat degraded due to contrast bolus a rtifact. Dense cavernous carotid calcification bilaterally. Moderate supra clinoid ICA stenosis bilaterally is unchanged. No flow-limiting stenosis. Normal vascularity to the TAISHA and MCA territories bilaterally. Basilar artery is patent. Normal vascularity to the CUSTOMER ADVISOR SPECIALIST territory bilaterally. Mastoid air cells well aerated. Paranasal sinuses are well aerated. Normal posterior nasopharynx. Nor mal parapharyngeal fat. Prior sternotomy CT/CT angio headneck* [id number] IMPRESSION: 1. Progressed LEFT ICA stenosis measuring 56%. 2. RIGHT ICA stenosis measuring 29%. 3. LEFT dominant vertebral artery is patent. 4. No flow in the mid RIGHT vertebral artery due to occlusive noncalcified kevin que or prior dissection. This is new since 2020 and stable since the prior ultr asound. RIGHT subclavian artery appears patent. 5. Moderate supra clinoid ICA stenosis is unchanged. 6. No flow-limiting intracranial stenosis.
[2022-07-16] MEDS: iohexol 350 mg/mL 100 mL Btl IV (15:51)
== END 2022-07-16 15:05 | disposition home or self-care (01) ==
PROVIDERS: PCP Family Medicine; Visit Provider Internal Medicine Cardiovascular Disease
DX: I77.1 Stricture of artery (principal); I65.23 Occlusion and stenosis of bilateral carotid arteries
CPT/HCPCS: 70496; 70498; Q9967

== ENCOUNTER 2022-09-30 09:20 | Emergency (ER) | payer MEDICARE, SELFPAY ==
[2022-09-30 09:26] VITALS: BP 190/72; PULSE 77; O2SAT 98
--- NOTE | 2022-09-30 10:21 | ED_ITS ---
HPI - Fall General: Chief Complaint: Fall Stated Complaint: FALL/ R LEG WEAKNESS Time Seen by Provider: 09/30/22 09:29 Source: patient and family Mode of arrival: EMS Limitations: no limitations History of Present Illness: Patient is an 86-year-old female presents to ED today via EMS and is along here with her daughter and son for evaluation following a fall. Patient family states she has been having issues with bilateral (right greater than left) leg weakness for at least a year now. Patient states earlier today she was walking when her legs began feeling weak and states she thinks maybe her right leg gave out causing her to fall. Patient states she did not fall very hard and essentially lowered herself to the ground and does not complain of any injuries at this time. She denies lightheadedness, dizziness. No shortness of breath, difficulty breathing, chest pain. MD complaint: fall Onset (ago): hour(s) Fall from: standing Fall witnessed: no Place fall occurred: home Loss of consciousness: None Prolonged down time: no Symptoms prior to fall: other (leg weakness) Associated symptoms-after fall: Reports no associated symptoms; Denies abdominal pain, chest pain, confusion, headache(s), lightheadedness, neck pain or vertigo Review of Systems Const: Denies: fever(s), chills, body aches, fatigue or malaise Eyes: Denies: change in vision, blurry vision, photophobia, floaters or seeing flashes Card: Denies: chest pain, palpitations, irregular heart rhythm, edema, swelling of feet/ankles, lightheadedness, syncope or pre-syncope Resp: Denies: dyspnea GI: Denies: abdominal pain : Denies: flank pain or oliguria Musc: Reports: back pain (chronic), joint pain (bilateral hip pain-chronic) and muscle weakness (bilateral R>L leg weakness); Denies: neck pain, extremity pain, extremity swelling, joint swelling, joint redness, joint warmth, joint stiffness, limited range of motion or muscle cramps Skin/Breast: Denies: rash Neuro: Reports: weakness in extremities; Denies: headache(s), numbness in extremities, sensory changes, lack of coordination, dizziness, vertigo, confusion, behavioral changes, Slurred speech present, difficulty communicating thoughts or seizure-like activity REPLACED BY [facility] PFSH: Medical History Bilateral carotid artery stenosis CAD (coronary artery disease) Chronic constipation Diabetes HTN (hypertension), benign Hyperlipidemia Hyponatremia Peripheral vascular disease Surgical History H/O tubal ligation H/O: hysterectomy History of colonoscopy History of knee surgery Hx of CABG Family History Daughter Cancer Family/Other Cancer Lung disease Diabetes Grandmother Cancer Mother Dementia Stroke Brother Diabetes Denies family history of CAD (coronary artery disease) Clotting disorder Chronic kidney disease (CKD) Suicide Anesthesia complication Bleeding disorder Social History Smoking and tobacco status: never smoked Alcohol intake: never Lives independently: Yes Physical Exam Const: COMMON NORMALS: no acute distress, average body habitus, patient oriented x3, no limitations, alert and well nourished GENERAL APPEARANCE: cooperative ORIENTATION/CONSCIOUSNESS: Yes awake, Yes oriented to person, Yes oriented to place and Yes oriented to time HENMT: COMMON NORMALS: normocephalic and atraumatic HEAD & SCALP: normal to inspection, normocephalic and atraumatic FACE & SINUS: normal facial exam MOUTH: Normal oral and palatal mucosa present, lip normal and tongue normal TEETH & GINGIVA: Yes edentulous Eye: GENERAL EYE: appearance normal, both eyes and all related structures Neck/C-Spine: COMMON NORMALS: full ROM GENERAL: Yes normal visual inspection CERVICAL SPINE: No Cervical spine tenderness Resp: COMMON NORMALS: normal respiratory effort and clear to auscultation bilaterally AUSCULTATION: clear to auscultation bilaterally Cardio: COMMON NORMALS: regular rate and regular rhythm RATE: regular rate RHYTHM: regular rhythm GI: COMMON NORMALS: Normal to inspection, nondistended, normoactive bowel sounds present, Soft to palpation and non-tender PALPATION: Yes Soft to palpation Back/Pelvis: COMMON NORMALS: thoracic and lumbar spine normal to inspection, no thoracic nor lumbar tenderness, thoraco-lumbar ROM normal and straight leg raise negative bilaterally OTHER: reports feeling achy throughout her back-at baseline Extremity: COMMON NORMALS: normal to inspection, full ROM, capillary refill normal, no joint enlargement, no clubbing, cyanosis or edema, no calf tenderness and no pedal edema GENERAL: Yes normal exam except as noted Neuro: JAMES COMA SCALE: document GCS findings [place] coma scale eye openin g: Spontaneous [place] coma scale verbal response: Orientated [place] coma scale motor response: Obey commands [place] coma scale total score: 15 COMMON NORMALS: patient oriented x3, CN's II-XII intact bilaterally, moves all extremities, no focal motor deficits and no sensory deficits noted SENSORIUM/ORIENTATION: Yes alert, Yes oriented to person, Yes oriented to place and Yes oriented to time GAIT: Yes Other gait observations present (pt ambulated with help of a walker well ) MOTOR EXAM: 5/5 motor strength present throughout (strength isn't pronounced but she can provide resistance ), Pronator motor function not present and Normal motor muscle tone present throughout Skin: TRAUMA: no lacerations or abrasions Course Vital Signs: Vital signs: Vital Signs Pulse Rate 70 09/30/22 12:55 Blood Pressure 192/49 09/30/22 12:55 Pulse Oximetry 98 09/30/22 12:55 Oxygen Delivery Me thod 09/30/22 12:54 MDM - Fall Medical Decision Making Blood work is fairly unremarkable. She is hyponatremic at 127. Sodium has been low previously. Glucose elevated at 299. UA without evidence for infection. CT scan showing encroachment on her L4-L5 nerve roots. Certainly this could be the etiology for her lower extremity weakness. According to family she has been prescribed physical therapy in the past but did not go. Commend she follow-up with her primary care provider for conservative treatment, possibly another referral to PT, option for home physical therapy, pain management/neurosurgery referral although I do not feel patient would make a good surgical candidate. Patient was walked here in the ED with a walker and did well. Recommend she use a walker at home to help prevent further falls. Family is in agreement with this. Prescription provided. Return ED precautions given. Lab Data 09/30/22 10:05 09/30/22 10:05 Radiology Impressions Lumbar Spine CT 09/30/22 10:24 IMPRESSION: 1. L3 and L4 anterolisthesis by 3 mm. 2. Severe central and bilateral subarticular recess stenosis at L4-5 with encroachment upon the traversing L5 nerve roots. 3. Moderate central with bilateral subarticular recess stenosis at L3-4 with encroachment upon the traversing L4 nerve roots. 4. Mild central, bilateral subarticular recess and foraminal stenosis at L2-3. 5. Mild foraminal stenosis at L3-4, L4-5 and L5-S1. Laboratory Results WBC 5.8 10^3/uL (4.0-10.0) 09/30/22 10:05 RBC 4.44 10^6/uL (4.1-5.3) 09/30/22 10:05 Hgb 12.1 g/dL (11.5-15.3) 09/30/22 10:05 Hct 37.5 % (37.0-47.0) 09/30/22 10:05 MCV 84.5 fl (81-99) 09/30/22 10:05 MCH 27.3 pg (28.0-34.0) L 09/30/22 10:05 MCHC 32.3 g/dL (30.0-36.0) 09/30/22 10:05 RDW 13.2 % (12.1-15.1) 09/30/22 10:05 Plt Count 327 10^3/cmm (130-400) 09/30/22 10:05 MPV 9.8 fL (7.4-10.4) 09/30/22 10:05 Neut % (Auto) 67.6 % 09/30/22 10:05 Lymph % (Auto) 20.3 % 09/30/22 10:05 Pondera % (Auto) 9.5 % 09/30/22 10:05 Eos % (Auto) 1.4 % 09/30/22 10:05 Baso % (Auto) 0.7 % 09/30/22 10:05 Neut # (Auto) 3.89 10^3/uL (1.8-7.7) 09/30/22 10:05 Lymph # (Auto) 1.2 10^3/uL (0.8-4.8) 09/30/22 10:05 Pondera # (Auto) 0.6 10^3/uL (0.2-0.9) 09/30/22 10:05 Eos # (Auto) 0.1 10^3/uL (0.0-0.8) 09/30/22 10:05 Baso # (Auto) 0.0 10^3/uL (0.0-0.1) 09/30/22 10:05 Nucleated RBC % (auto) 0 % 09/30/22 10:05 Nucleated RBCs # 0.0 /100WBC 09/30/22 10:05 Sodium 127 mmol/L (136-145) L 09/30/22 10:05 Potassium 4.6 mmol/L (3.5-5.1) 09/30/22 10:05 Chloride 93 mmol/L (98-107) L 09/30/22 10:05 Carbon Dioxide 22 mmol/L (22-29) 09/30/22 10:05 Anion Gap 16.6 (5-19) 09/30/22 10:05 BUN 18 mg/dL (8-23) 09/30/22 10:05 Creatinine 0.9 mg/dL (0.5-0.9) 09/30/22 10:05 GFR Calculation Not Reportable 09/30/22 10:05 Glucose 299 mg/dL (65-115) H 09/30/22 10:05 Calculated Osmolality 277 mOsm/kg (285-295) L 09/30/22 10:05 Calcium 9.5 mg/dL (8.5-10.5) 09/30/22 10:05 Total Bilirubin 0.3 mg/dL (0.15-1.2) 09/30/22 10:05 AST 17 U/L (0-32) 09/30/22 10:05 ALT 11 U/L (0-33) 09/30/22 10:05 Alkaline Phosphatase 115 U/L (35-105) H 09/30/22 10:05 Total Protein 7.3 g/dL (6.6-8.7) 09/30/22 10:05 Albumin 3.8 g/dL (3.5-5.2) 09/30/22 10:05 Globulin 3.5 g/dL (1.3-4.6) 09/30/22 10:05 Urine Color Yellow (Yellow) 09/30/22 10:05 Urine Appearance Clear (CLEAR) 09/30/22 10:05 Urine pH 5 (5-7) 09/30/22 10:05 Ur Specific Anna 1.015 (1.005-1.030) 09/30/22 10:05 Urine Protein 1+ (Negative) H 09/30/22 10:05 Urine Glucose (UA) 4+ (Normal) H 09/30/22 10:05 Urine Ketones Negative (Negative) 09/30/22 10:05 Urine Blood Neg (Negative) 09/30/22 10:05 Urine Nitrate Negative (Negative) 09/30/22 10:05 Urine Bilirubin Neg (Negative) 09/30/22 10:05 Urine Urobilinogen Neg mg/dL (Negative) 09/30/22 10:05 Ur Leukocyte Esterase Negative (Negative) 09/30/22 10:05 Urine RBC None /hpf (0-2) 09/30/22 10:05 Urine WBC None /hpf (0-5) 09/30/22 10:05 Ur Squamous Epith Cells 5-10 /hpf (0-5) H 09/30/22 10:05 Amorphous Sediment Not Reportable 09/30/22 10:05 Urine Bacteria None /hpf (NONE) 09/30/22 10:05 Discharge Plan Discharge Patient Disposition: Home Clinical Impression: Leg weakness, bilateral, Lumbar radiculopathy Fall Qualifiers: Encounter type: initial encounter Qualified Code(s): W19.XXXA - Unspecified fall, initial encounter Condition: Stable Prescriptions: No Action nitroglycerin [Nitrostat] 0.4 mg tablet, sublingual 0.4 mg SUBLINGUAL Q5M PRN (Reason: chest pain) 30 Days Qty: 30 0RF psyllium husk [Metamucil] 0.4 gram capsule 0.4 gm PO DAILY aspirin [Adult Low Dose Aspirin] 81 mg tablet,delayed release (DR/EC) 162 mg PO DAILY alprazolam 0.5 mg tablet 0.5 mg PO BID Qty: 60 3RF lactulose 10 gram/15 mL solution 10 g PO BID PRN (Reason: Constipation) sennosides-docusate sodium [Senna-S] 8.6-50 mg tablet 1 tab-cap PO DAILY PRN (Reason: Constipation) insulin glargine [Lantus U-100 Insulin] 100 unit/mL solution 15 unit SUBCUT DAILY Qty: 10 12RF insulin lispro protamin-lispro [Humalog Mix 75-25 KwikPen] 100 unit/mL (75-25) insulin pen 15 unit SUBCUT BID Qty: 15 12RF furosemide [Lasix] 20 mg tablet 20 mg PO DAILY PRN (Reason: Edema) amlodipine 5 mg tablet 5 mg PO BID Qty: 180 3RF (DME) pen needle, diabetic 32 gauge x 5/32 needle See Rx Instructions .ROUTE .COMPLEX Qty: 50 11RF Dose Instruction: USE DIRECTED TWICE DAILY Rx Instructions: USE DIRECTED TWICE DAILY omeprazole 40 mg capsule,delayed release(DR/EC) 40 mg PO DAILY Qty: 90 3RF (DME) OneTouch Ultra Test Strip See Rx Instructions .ROUTE .COMPLEX Qty: 100 11RF Dose Instruction: USE 1 STRIP TO CHECK GLUCOSE TWICE DAILY Rx Instructions: USE 1 STRIP TO CHECK GLUCOSE TWICE DAILY hydrocodone-acetaminophen 7.5-325 mg tablet 1 tab PO Q6H PRN (Reason: Pain) 30 Days Qty: 120 0RF Discharge Orders: Discharge ED (Routine); Ordered 09/30/22 Ordered By: Whtiney Dempsey Referrals: Dallas Lorenzana MD [Primary Care Provider] - Activity Restrictions/Additional Instructions: You have been provided a prescription that you may bring to HOME to get patient set up with a walker to help with ambulation and hopefully prevent further falls. Please follow-up with your primary care provider for further evaluation and treatment of her leg weakness which could include physical therapy, conservative treatments, pain management/neurosurgery referral. Coding Level of Care Code ED [employer] [place]
--- NOTE | 2022-09-30 10:24 | CT_ITS ---
WS: [id number] CT LUMBAR SPINE, noncontrast. HISTORY: back/hip pain, leg weakness TECHNIQUE: Contiguous 2.5 mm axial imaging are performed. Sagittal and coronal reformats are submitte d and reviewed. All CT scans at [facility] use at least one of these dose optimization techni ques: automated exposure control; mA and/or kV adjustment per patient size (includes targeted exams w here dose is matched to clinical indication); or iterative reconstruction. IV contrast: None DLP: 756.04 mGy.cm COMPARISON: None available. L3 and L4 anterolisthesis by 3 mm. Mild disc space narrowing at L4-5 and L5-S1 with vacuum disc pheno chrissie. No lumbar fractures. L1-2: Normal. L2-3: Mild annular disc bulging. Moderate bilateral facet joint arthritis and ligamentum flavum hyper trophy. Mild central, bilateral subarticular recess and foraminal encroachment. L3-4: Mild unroofing of the disc due to anterolisthesis of L3. Slightly asymmetric disc bulging and p rotrusion LEFT foramen. Ligamentum flavum hypertrophy and marked facet arthritis. There is moderate c entral with bilateral subarticular recess and mild foraminal stenosis. There is encroachment and disc contact upon both traversing L4 nerve roots. L4-5: Mild annular disc bulging with unroofing of the disc due to anterolisthesis of L4. Moderate lig amentum flavum hypertrophy and facet arthritis. Severe central and bilateral subarticular recess sten osis with mild foraminal stenosis. Most significant contact on the traversing L5 nerve roots. L5-S1: Mild facet disease and foraminal narrowing. No central stenosis. Very mild LEFT adrenal hyperplasia. Atherosclerosis aorta. CT/CT lumbar spine wo con* [id number] IMPRESSION: 1. L3 and L4 anterolisthesis by 3 mm. 2. Severe central and bilateral subarticular recess stenosis at L4-5 with encr oachment upon the traversing L5 nerve roots. 3. Moderate central with bilateral subarticular recess stenosis at L3-4 with e ncroachment upon the traversing L4 nerve roots. 4. Mild central, bilateral subarticular recess and foraminal stenosis at L2-3. 5. Mild foraminal stenosis at L3-4, L4-5 and L5-S1.
[2022-09-30 10:33] VITALS: BP 160/90; PULSE 68; O2SAT 97
[2022-09-30 10:38] LABS: Basophils % 0.7 %; Eosinophils # 0.1 10^3/uL (0.0-0.8); Eosinophils % 1.4 %; Hematocrit 37.5 % (37.0-47.0); Hemoglobin 12.1 g/dL (11.5-15.3); Lymphocytes # 1.2 10^3/uL (0.8-4.8); Lymphocytes % 20.3 %; Mean Corpuscular HGB Conc 32.3 g/dL (30.0-36.0); Mean Corpuscular Hemoglobin 27.3 pg (28.0-34.0); Mean Corpuscular Volume 84.5 fl (81-99); Mean Platelet Volume 9.8 fL (7.4-10.4); Monocytes # 0.6 10^3/uL (0.2-0.9); Monocytes % 9.5 %; Neutrophils # 3.89 10^3/uL (1.8-7.7); Neutrophils % 67.6 %; Nucleated Red Blood Cells % 0 %; Platelet Count 327 10^3/cmm (130-400); Red Blood Count 4.44 10^6/uL (4.1-5.3); Red Cell Distribution Width 13.2 % (12.1-15.1); White Blood Count 5.8 10^3/uL (4.0-10.0)
[2022-09-30 10:46] LABS: Alanine Aminotransferase 11 U/L (0-33); Albumin Level 3.8 g/dL (3.5-5.2); Alkaline Phosphatase 115 U/L (35-105); Anion Gap 16.6 (5-19); Aspartate Amino Transferase 17 U/L (0-32); Blood Urea Nitrogen 18 mg/dL (8-23); Calcium 9.5 mg/dL (8.5-10.5); Carbon Dioxide 22 mmol/L (22-29); Chloride 93 mmol/L (98-107); Globulin 3.5 g/dL (1.3-4.6); Glucose 299 mg/dL (65-115); Osmolality Calculated 277 mOsm/kg (285-295); Potassium 4.6 mmol/L (3.5-5.1); Sodium 127 mmol/L (136-145); Total Bilirubin 0.3 mg/dL (0.15-1.2); Total Protein 7.3 g/dL (6.6-8.7)
[2022-09-30 10:54] LABS: Add Urine Microscopic? YES; Bilirubin Urine Neg (Negative); Blood Urine Neg (Negative); Glucose Urine UA 4+ (Normal); Ketones Urine Negative (Negative); Leukocyte Esterase Urine Negative (Negative); Nitrate Urine Negative (Negative); Protein Urine 1+ (Negative); Specific Gravity, Urine 1.015 (1.005-1.030); Urine Appearance Clear (CLEAR); Urine Color Yellow (Yellow); Urobilinogen Urine Neg (Negative); pH Urine 5 (5-7)
[2022-09-30 10:55] LABS: Add Urine Culture? No
[2022-09-30 11:30] VITALS: BP 166/62; PULSE 73; O2SAT 97
[2022-09-30 12:54] VITALS: PULSE 70; O2SAT 98
[2022-09-30 12:55] VITALS: BP 192/49; PULSE 70; O2SAT 98
== END 2022-09-30 12:56 | disposition home or self-care (01) ==
PROVIDERS: Emergency Provider Physician Assistant; PCP Family Medicine
DX: R53.1 Weakness (principal); M54.17 Radiculopathy, lumbosacral region; Z79.82 Long term (current) use of aspirin; Z79.4 Long term (current) use of insulin; I25.10 Atherosclerotic heart disease of native coronary artery without angina pectoris; E11.9 Type 2 diabetes mellitus without complications; I10 Essential (primary) hypertension; E78.5 Hyperlipidemia, unspecified; Z95.1 Presence of aortocoronary bypass graft
CPT/HCPCS: 72131; 80053; 81001; 85025; 99284

== ENCOUNTER 2022-10-09 15:44 | Outpatient (CLI) | payer MEDICARE, SELFPAY ==
--- NOTE | 2022-10-09 16:45 | MR_ITS ---
WS: [id number] MRI BRAIN WITH AND WITHOUT CONTRAST HISTORY: acute CVA COMPARISON: 04/20/2021 TECHNIQUE: Multiplanar imaging performed through the brain with MultiHance 17 ml's IV. Diffusion-weighted abnormality in the LEFT yaneth. Increased signal on the diffusion sequences and retu rned to normal on the ADC map. No additional diffusion abnormalities. Mild cerebral atrophy and mild small vessel ischemic disease. Similar to the prior study. No susceptibility artifacts or prior lacunar infarcts. Ventricles and extra-axial spaces are normal. Clivus and pituitary gland are normal. Visualized posterior fossa and brainstem are also normal. Postcontrast images are negative for masses or vascular malformations. Dural venous sinuses are normal. Paranasal sinuses: Well aerated with no significant disease. Mastoid air cells: Normal. Calvarium and scalp: Normal. MR/MR head wo/w con [id number] IMPRESSION: 1. Subacute small lacunar infarct in the LEFT yaneth. Estimated age at approxima tely 1 week old. No hemorrhage. 2. Mild atrophy and small vessel ischemic disease. Not significantly changed s oleg the prior study. No enhancing masses.
[2022-10-09] MEDS: gadobenate dimeglumine 20 mL vial IV (16:59)
== END 2022-10-09 15:45 | disposition home or self-care (01) ==
LOC: RAD 15:54
PROVIDERS: PCP Family Medicine; Visit Provider Family Medicine
DX: I63.81 Other cerebral infarction due to occlusion or stenosis of small artery (principal); I67.82 Cerebral ischemia; G31.9 Degenerative disease of nervous system, unspecified
CPT/HCPCS: 70553; A9577

== ENCOUNTER → 2022-10-22 11:42 | Outpatient (BNVA) | payer MEDICARE, SELFPAY | PROVIDERS: PCP Family Medicine; Visit Provider Family Medicine | DX: I63.9 Cerebral infarction, unspecified (principal); E87.1 Hypo-osmolality and hyponatremia | CPT/HCPCS: 80048 ==

== ENCOUNTER → 2022-11-06 11:49 | Outpatient (BNVA) | payer MEDICARE, SELFPAY | PROVIDERS: PCP Family Medicine; Visit Provider Internal Medicine Cardiovascular Disease | DX: I25.118 Atherosclerotic heart disease of native coronary artery with other forms of angina pectoris (principal); I10 Essential (primary) hypertension; E78.2 Mixed hyperlipidemia; I65.23 Occlusion and stenosis of bilateral carotid arteries; E11.9 Type 2 diabetes mellitus without complications; Z79.4 Long term (current) use of insulin; Z86.73 Personal history of transient ischemic attack (TIA), and cerebral infarction without residual deficits; Z79.82 Long term (current) use of aspirin | CPT/HCPCS: 99214 ==

== ENCOUNTER → 2023-01-01 09:41 | Outpatient (BNVA) | payer MEDICARE, SELFPAY | PROVIDERS: PCP Family Medicine; Referring Provider Family Medicine; Visit Provider Psychiatry & Neurology Neurology | DX: I65.23 Occlusion and stenosis of bilateral carotid arteries (principal); M54.50 Low back pain, unspecified; Z86.73 Personal history of transient ischemic attack (TIA), and cerebral infarction without residual deficits; I25.10 Atherosclerotic heart disease of native coronary artery without angina pectoris; I10 Essential (primary) hypertension; F32.A Depression, unspecified; F41.9 Anxiety disorder, unspecified | CPT/HCPCS: 99203 ==

== ENCOUNTER 2023-01-07 07:57 | Outpatient (CLI) | payer MEDICARE, SELFPAY ==
--- NOTE | 2023-01-07 08:30 | FL_ITS ---
WS: [id number] DOUBLE CONTRAST UPPER GI EXAMINATION HISTORY: DYSPHAGIA, UNSPECIFIED COMPARISON: None available. FLUOROSCOPY TIME: 2min [id number] minutes. Barium mixture traversed normally throughout the esophagus. Mild cricopharyngeal spasm at the C6-7 le rayshawn indenting the posterior cervical esophagus. There is only minimal limitation of swallowing the ba rium mixture and the barium tablet at this location. There is no high-grade stenosis. Patient swallow ed the barium tablet without difficulty. There is also a very tiny posterior esophageal diverticulum at the C7 level. Suspect is in the additional very tiny posterior esophageal diverticulum at the C6 l evel. Only intermittently visualized. No filling or mucosal defects throughout the esophagus. Stomach is normally distensible and pliable. No ulcerations. Mild reflux was identified. There is mild delay in emptying of the esophagus. Intermittently visualized small hiatal hernia. FL/FL upper GI series [id number] IMPRESSION: 1. Intermittently visualized small hiatal hernia. 2. Slight delayed emptying of the esophagus with very mild gastroesophageal re flux into the distal esophagus. 3. Mild cricopharyngeal spasm causing mild narrowing of the cervical esophagus . 4. There is one and possibly two very small cervical esophageal diverticula. Intermittently visualized on this exam. No high-grade cervical stenosis.
== END 2023-01-07 07:58 | disposition home or self-care (01) ==
PROVIDERS: PCP Family Medicine; Visit Provider Family Medicine
DX: R13.10 Dysphagia, unspecified (principal); K44.9 Diaphragmatic hernia without obstruction or gangrene; K21.9 Gastro-esophageal reflux disease without esophagitis; J39.2 Other diseases of pharynx; Q39.6 Congenital diverticulum of esophagus
CPT/HCPCS: 74240

== ENCOUNTER → 2023-01-29 09:44 | Outpatient (BNVA) | payer MEDICARE, SELFPAY | PROVIDERS: PCP Family Medicine; Visit Provider Anesthesiology Pain Medicine | DX: M48.062 Spinal stenosis, lumbar region with neurogenic claudication (principal); M47.816 Spondylosis without myelopathy or radiculopathy, lumbar region | CPT/HCPCS: 99204 ==

== ENCOUNTER → 2023-02-24 14:19 | Outpatient (BNVA) | payer MEDICARE, SELFPAY | PROVIDERS: PCP Family Medicine; Visit Provider Anesthesiology Pain Medicine | DX: M54.16 Radiculopathy, lumbar region (principal); M48.062 Spinal stenosis, lumbar region with neurogenic claudication | CPT/HCPCS: 64483; 64484; J1100; J3490 ==

== ENCOUNTER 2023-03-03 07:24 | Emergency (ER) | payer MEDICARE, MEDICAID, SELFPAY ==
[2023-03-03 07:25] VITALS: BP 174/75; PULSE 55; RESP 18; TEMP 36.8; O2SAT 92; BMI 24.2
--- NOTE | 2023-03-03 07:35 | XRR_ITS ---
PROCEDURE INFORMATION: Exam: XR Chest Exam date and time: 03/03/2023 8:30 AM Age: 87 years old Clinical indication: Cough and dyspnea; Additional info: Dyspnea/cough TECHNIQUE: Imaging protocol: Radiologic exam of the chest. Views: 1 view. COMPARISON: CR XR chest 1V [id number] 04/27/2017 9:35 PM FINDINGS: Lungs: No consolidation or overt edema. Pleural spaces: Unremarkable. No pleural effusion. No pneumothorax. Heart/Mediastinum: Stable cardiomediastinal silhouette. Vasculature: Calcified thoracic aorta. Diaphragm: Elevation right hemidiaphragm. Bones/joints: Postoperative sternotomy. XR/XR chest 1V portable [id number] IMPRESSION: Stable chest without acute process.
--- NOTE | 2023-03-03 07:35 | ECG_ITS ---
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 Measurements Intervals [place] Rate: 53 P: 62 DE: 197 QRS: -65 QRSD: 161 T: -7 QT: 476 QTc: 449 Interpretive Statements SINUS BRADYCARDIA RIGHT BUNDLE BRANCH BLOCK [120+ ms QRS DURATION, UPRIGHT V1, 40+ ms S IN I/aVL/V4/V5/V6] LEFT ANTERIOR FASCICULAR BLOCK [QRS AXIS <= -45, QR IN I, RS IN II] Compared to ECG 08/25/2018 13:07:30 Right bundle-branch block now present Left anterior fascicular block now present Sinus rhythm no longer present Left-axis deviation no longer present ST (T wave) deviation no longer present Electronically Signed On 03-03-2023 16:14:15 CDT by Teodoro Mancini M.D. [email or web address] [facility] Solutionspro[id number]
--- NOTE | 2023-03-03 07:36 | XR_ITS ---
WS: [id number] RIGHT WRIST: 3 VIEW(S) TECHNIQUE: PA, oblique and lateral. HISTORY: pain COMPARISON: None available. Bones are osteopenic. No fractures are identified. Chondrocalcinosis at the radial ulnar carpal joint space. Marked narrowing of the first carpometacarpal joint. No soft tissue swelling. XR/XR wrist RT min 3V* [id number] IMPRESSION: 1. No acute fracture identified RIGHT wrist. 2. Degenerative changes throughout the wrist as described above. 3. Chondrocalcinosis.
--- NOTE | 2023-03-03 07:38 | W.ED.WEAKNES ---
HPI - Weakness General: Chief complaint: Weakness Stated complaint: ams, unsteady gait Time Seen by Provider: 03/03/23 07:34 Source: patient Mode of arrival: ambulatory History of Present Illness: 87-year-old female presents emergency room via EMS complaining of weakness in her legs she cannot really isolate one leg or another. She is concerned she may be having a TIA. She denies any other symptoms no chest pain shortness of breath no cough no abdominal pain no dysuria urgency or frequency vomiting or diarrhea. She does have some right wrist pain but she cannot recall any particular injury or anything that seem to cause it or precipitated it. MD Complaint: generalized weakness and difficulty walking Onset (ago): minute(s) Duration: intermittent Location: LLE and RLE Severity: mild Relieving factors: none Exacerbating factors: none Associated symptoms: Denies chest pain, chills, confusion, melena, decreased appetite, diaphoresis, dysuria, easy bruising, fever(s), headache(s), myalgias, nausea, rash, short of breath, syncope or vomiting Review of Systems Const: Denies: fever(s), chills, fatigue, malaise or diaphoresis ENMT: Denies: throat pain, ear or mastoid pain, nasal discharge or nasal congestion Card: Denies: chest pain, palpitations, irregular heart rhythm, edema, lightheadedness or syncope Resp: Denies: dyspnea, productive cough or non-productive cough GI: Denies: abdominal pain, nausea, vomiting or melena : Denies: dysuria, urinary frequency or urinary urgency Musc: Reports: joint pain Skin/Breast: Denies: rash or pruritus Neuro: Denies: headache(s) or confusion Eyal/Lymph: Denies: easy bruising PFSH ED PFSH: Medical History Bilateral carotid artery stenosis CAD (coronary artery disease) Chronic constipation Diabetes HTN (hypertension), benign Hyperlipidemia Hyponatremia Peripheral vascular disease Surgical History H/O tubal ligation H/O: hysterectomy History of colonoscopy History of knee surgery Hx of CABG Family History Daughter Cancer Family/Other Cancer Lung disease Diabetes Grandmother Cancer Mother Dementia Stroke Brother Diabetes Denies family history of CAD (coronary artery disease) Clotting disorder Chronic kidney disease (CKD) Suicide Anesthesia complication Bleeding disorder Social History Smoking and tobacco status: never smoked Alcohol intake: never Substance/Drug Use: never Lives independently: Yes Physical Exam Const: GENERAL APPEARANCE: cooperative and comfortable ORIENTATION/CONSCIOUSNESS: Yes awake, Yes oriented to person, Yes oriented to place and Yes oriented to time HENMT: COMMON NORMALS: normocephalic, atraumatic and hearing grossly normal bilaterally HEAD & SCALP: normocephalic and atraumatic Resp: COMMON NORMALS: normal respiratory effort, No retractions, No use of accessory muscles and clear to auscultation bilaterally AUSCULTATION: clear to auscultation bilaterally Cardio: COMMON NORMALS: regular rate, regular rhythm and No murmurs present (Cardio) RATE: regular rate RHYTHM: regular rhythm GI: COMMON NORMALS: Soft to palpation and No hepatosplenomegaly present AUSCULTATION: Yes normoactive bowel sounds PALPATION: Yes Soft to palpation, No Tenderness to palpation present (GI), No Guarding due to palpation present (GI) and Yes No hepatosplenomegaly present Extremity: COMMON NORMALS: normal to inspection, capillary refill normal, no clubbing, cyanosis or edema, no calf tenderness and no pedal edema Neuro: SENSORIUM/ORIENTATION: Yes oriented to person, Yes oriented to place and Yes oriented to time Skin: COMMON NORMALS: no rashes or lesions noted GENERAL SKIN EXAM: no rashes or lesions noted Course Vital Signs: Vital signs: Vital Signs Temperature 98.3 F 03/03/23 07:25 Pulse Rate 67 03/03/23 11:30 Respiratory Rate 15 03/03/23 08:02 Blood Pressure 200/90 03/03/23 11:30 Pulse Oximetry 94 03/03/23 11:30 Oxygen Delivery Me thod Room Air 03/03/23 09:00 MDM - Weakness Medical Decision Making No acute wrist fracture. Head CT unremarkable. Her NIH is notable for change in sensation but it is bilateral to the lower extremities she has bilateral lower extremity weakness but not really any drift. Reviewing her chart she has some lumbar foraminal stenosis as well as some central stenosis. She has been seen at the pain clinic. Suspect some of this is due to the back issues. There is no evidence of fracture in the wrist no other injury. She does feel like she is doing little bit better she has had previous vascular studies on the chart which were reviewed as well. Patient will be discharged home encouraged her to follow-up with pain clinic if she has any worsening or change symptoms return. Medical Records I reviewed the patient's medical records. Lab Data I reviewed the patient's lab results. 03/03/23 07:17 03/03/23 07:17 Radiology Impressions Chest X-Ray 03/03/23 07:35 IMPRESSION: Stable chest without acute process. Wrist X-Ray 03/03/23 07:36 IMPRESSION: 1. No acute fracture identified RIGHT wrist. 2. Degenerative changes throughout the wrist as described above. 3. Chondrocalcinosis. Head CT 03/03/23 07:57 IMPRESSION: 1. No acute intracranial edema or hemorrhage. 2. New area of thin increased density in the RIGHT occipital region closely associated with the dural venous sinus. Favor this is developing calcification along the dural venous sinus and tentorium and not blood. 3. Moderate atherosclerotic disease within the distal vertebral and the carotid arteries. Laboratory Results WBC 6.2 10^3/uL (4.0-10.0) 03/03/23 07:17 RBC 4.23 10^6/uL (4.1-5.3) 03/03/23 07:17 Hgb 11.2 g/dL (11.5-15.3) L 03/03/23 07:17 Hct 34.7 % (37.0-47.0) L 03/03/23 07:17 MCV 82.0 fl (81-99) 03/03/23 07:17 MCH 26.5 pg (28.0-34.0) L 03/03/23 07:17 MCHC 32.3 g/dL (30.0-36.0) 03/03/23 07:17 RDW 14.7 % (12.1-15.1) 03/03/23 07:17 Plt Count 243 10^3/cmm (130-400) 03/03/23 07:17 MPV 9.9 fL (7.4-10.4) 03/03/23 07:17 Neut % (Auto) 55.4 % 03/03/23 07:17 Lymph % (Auto) 28.8 % 03/03/23 07:17 [place] % (Auto) 12.0 % 03/03/23 07:17 Eos % (Auto) 2.9 % 03/03/23 07:17 Baso % (Auto) 0.6 % 03/03/23 07:17 Neut # (Auto) 3.41 10^3/uL (1.8-7.7) 03/03/23 07:17 Lymph # (Auto) 1.8 10^3/uL (0.8-4.8) 03/03/23 07:17 [place] # (Auto) 0.7 10^3/uL (0.2-0.9) 03/03/23 07:17 Eos # (Auto) 0.2 10^3/uL (0.0-0.8) 03/03/23 07:17 Baso # (Auto) 0.0 10^3/uL (0.0-0.1) 03/03/23 07:17 Nucleated RBC % (auto) 0 % 03/03/23 07:17 Nucleated RBCs # 0.0 /100WBC 03/03/23 07:17 Sodium 133 mmol/L (136-145) L 03/03/23 07:17 Potassium 4.3 mmol/L (3.5-5.1) 03/03/23 07:17 Chloride 98 mmol/L (98-107) 03/03/23 07:17 Carbon Dioxide 25 mmol/L (22-29) 03/03/23 07:17 Anion Gap 14.3 (5-19) 03/03/23 07:17 BUN 17 mg/dL (8-23) 03/03/23 07:17 Creatinine 0.9 mg/dL (0.5-0.9) 03/03/23 07:17 GFR Calculation Not Reportable 03/03/23 07:17 Glucose 88 mg/dL (65-115) 03/03/23 07:17 Calculated Osmolality 277 mOsm/kg (285-295) L 03/03/23 07:17 Calcium 9.1 mg/dL (8.5-10.5) 03/03/23 07:17 Total Bilirubin 0.3 mg/dL (0.15-1.2) 03/03/23 07:17 AST 14 U/L (0-32) 03/03/23 07:17 ALT 9 U/L (0-33) 03/03/23 07:17 Alkaline Phosphatase 90 U/L (35-105) 03/03/23 07:17 Creatine Kinase 67 U/L (26-192) 03/03/23 07:17 Total Protein 6.3 g/dL (6.6-8.7) L 03/03/23 07:17 Albumin 3.5 g/dL (3.5-5.2) 03/03/23 07:17 Globulin 2.8 g/dL (1.3-4.6) 03/03/23 07:17 Urine Color Straw (Yellow) 03/03/23 09:17 Urine Appearance Clear (CLEAR) 03/03/23 09:17 Urine pH 7 (5-7) 03/03/23 09:17 Ur Specific [place] 1.005 (1.005-1.030) 03/03/23 09:17 Urine Protein Neg (Negative) 03/03/23 09:17 Urine Glucose (UA) Norm (Normal) 03/03/23 09:17 Urine Ketones Negative (Negative) 03/03/23 09:17 Urine Blood Neg (Negative) 03/03/23 09:17 Urine Nitrate Negative (Negative) 03/03/23 09:17 Urine Bilirubin Neg (Negative) 03/03/23 09:17 Urine Urobilinogen Norm mg/dL (Negative) 03/03/23 09:17 Ur Leukocyte Esterase Negative (Negative) 03/03/23 09:17 Discharge Plan Discharge Patient Disposition: Home Clinical Impression: Lumbar stenosis with neurogenic claudication, Leg weakness, bilateral, Pain in right wrist Condition: Stable Prescriptions: No Action aspirin [Adult Low Dose Aspirin] 81 mg tablet,delayed release (DR/EC) 81 mg PO DAILY Rx Instructions: on hold per pts family 03/03/23 clopidogrel [Plavix] 75 mg tablet 75 mg PO DAILY Qty: 30 11RF Rx Instructions: med on hold per family 03/03/23 lactulose 10 gram/15 mL solution 10 g PO BID PRN (Reason: Constipation) Qty: 473 3RF insulin lispro protamin-lispro [Humalog Mix 75-25 KwikPen] 100 unit/mL (75-25) insulin pen 15 unit SUBCUT BID Qty: 15 12RF hydrocodone-acetaminophen 7.5-325 mg tablet 1 tab PO Q6H PRN (Reason: Pain) 30 Days Qty: 120 0RF (DME) pen needle, diabetic 32 gauge x 5/32 needle See Rx Instructions .ROUTE .COMPLEX Qty: 50 11RF Dose Instruction: USE DIRECTED TWICE DAILY Rx Instructions: USE DIRECTED TWICE DAILY omeprazole 40 mg capsule,delayed release(DR/EC) 40 mg PO DAILY Qty: 90 3RF (DME) OneTouch Ultra Test Strip See Rx Instructions .ROUTE .COMPLEX Qty: 100 11RF Dose Instruction: USE 1 STRIP TO CHECK GLUCOSE TWICE DAILY Rx Instructions: USE 1 STRIP TO CHECK GLUCOSE TWICE DAILY alprazolam 0.5 mg tablet 0.5 mg PO BID Qty: 60 3RF Lantus U-100 Insulin 100 unit/mL solution 15 unit SUBCUT QAM losartan 100 mg tablet 100 mg PO QAM escitalopram oxalate 10 mg tablet 10 mg PO QAM Discharge Orders: Discharge ED (Routine); Ordered 03/03/23 Ordered By: Rangel Bourne Referrals: Dallas Lorenzana MD [Primary Care Provider] - Discharge Diet: Usual diet Discharge Activity: Increase activity as tolerated Patient Instructions: Opioid Safety, Pain Management Activity Restrictions/Additional Instructions: You are seen today for weakness in your legs. No evidence of stroke at this time. Appears to be due to nerve root compression that was previously diagnosed. Recommend you follow-up with your pain clinic for further recommendations. Your blood pressure was elevated today but responded well to medications given. Follow-up with your primary care doctor to review blood pressure within the next week. Coding Level of Care Code ED Apprentice Lineman Third Step for [place] NIH stroke score NIHSS Level Of Consciousness - 1a: 0 Level Of Consciousness Questions - 1b: Both Correct Level Of Consciousness Commands - 1c: Both Correct Best Gaze - 2: Normal Visual Adams - 3: No Visual Loss Facial Palsy - 4: Normal Motor Arm Right - 5: No Drift Motor Arm Left - 5: No Drift Motor Leg Right - 6: No Drift Motor Leg Left - 6: No Drift Limb Ataxia - 7: Absent Sensory - 8: Mild To Moderate Loss (Bilateral lower extremities) Best Language - 9: No Aphasia Dysarthia - 10: Normal Extinction And Inattention - 11: 0 Score Total Score: 1
[2023-03-03 07:45] LABS: Basophils % 0.6 %; Eosinophils # 0.2 10^3/uL (0.0-0.8); Eosinophils % 2.9 %; Hematocrit 34.7 % (37.0-47.0); Hemoglobin 11.2 g/dL (11.5-15.3); Lymphocytes # 1.8 10^3/uL (0.8-4.8); Lymphocytes % 28.8 %; Mean Corpuscular HGB Conc 32.3 g/dL (30.0-36.0); Mean Corpuscular Hemoglobin 26.5 pg (28.0-34.0); Mean Platelet Volume 9.9 fL (7.4-10.4); Monocytes # 0.7 10^3/uL (0.2-0.9); Neutrophils # 3.41 10^3/uL (1.8-7.7); Neutrophils % 55.4 %; Nucleated Red Blood Cells % 0 %; Platelet Count 243 10^3/cmm (130-400); Red Blood Count 4.23 10^6/uL (4.1-5.3); Red Cell Distribution Width 14.7 % (12.1-15.1); White Blood Count 6.2 10^3/uL (4.0-10.0)
[2023-03-03 07:56] LABS: Alanine Aminotransferase 9 U/L (0-33); Albumin Level 3.5 g/dL (3.5-5.2); Alkaline Phosphatase 90 U/L (35-105); Anion Gap 14.3 (5-19); Aspartate Amino Transferase 14 U/L (0-32); Blood Urea Nitrogen 17 mg/dL (8-23); Calcium 9.1 mg/dL (8.5-10.5); Carbon Dioxide 25 mmol/L (22-29); Chloride 98 mmol/L (98-107); Creatine Phosphokinase 67 U/L (26-192); Creatinine Clr Calc Pharmacy 45.3039; Globulin 2.8 g/dL (1.3-4.6); Glucose 88 mg/dL (65-115); Osmolality Calculated 277 mOsm/kg (285-295); Potassium 4.3 mmol/L (3.5-5.1); Sodium 133 mmol/L (136-145); Total Bilirubin 0.3 mg/dL (0.15-1.2); Total Protein 6.3 g/dL (6.6-8.7)
--- NOTE | 2023-03-03 07:57 | CT_ITS ---
WS: [id number] CT HEAD NONCONTRAST HISTORY: leg weakness TECHNIQUE: Contiguous axial imaging performed through the brain in 2.5 mm imaging. Bone and soft tiss ue windows. Sagittal and coronal reformats reviewed. All CT scans at [facility] use at least one of these dose optimization techniques: automated exposure control; mA and/or kV adjustment per pa tient size (includes targeted exams where dose is matched to clinical indication); or iterative recon struction. DLP: 987.32 mGy.cm COMPARISON: 07/16/2022, 05/07/2016 No acute intracranial hemorrhage, midline shift or mass effect. New area of increased density in the posterior RIGHT occipital region. This area of increased density favors calcification not blood associated with the tentorium and dural venous sinus. There is no mas s effect or edema. Ventricles: Normal size with no hydrocephalus. No inferior displacement of the cerebellar tonsils. Paranasal sinuses: As visualized are clear. Mastoid air cells: Well pneumatized. Calvarium and scalp: Skull is intact with no soft tissue edema or swelling. Extensive atherosclerotic plaque within the distal vertebral arteries and in the intracranial carotid arteries. CT/CT head wo con* [id number] IMPRESSION: 1. No acute intracranial edema or hemorrhage. 2. New area of thin increased density in the RIGHT occipital region closely as sociated with the dural venous sinus. Favor this is developing calcification al ya the dural venous sinus and tentorium and not blood. 3. Moderate atherosclerotic disease within the distal vertebral and the caroti d arteries.
[2023-03-03 08:02] VITALS: BP 182/87; PULSE 56; RESP 15; O2SAT 94
[2023-03-03 09:00] VITALS: PULSE 57; O2SAT 91
[2023-03-03 09:26] LABS: Add Urine Microscopic? NO; Charge for UA Resulting for Rev
[2023-03-03 09:46] LABS: Bilirubin Urine Neg (Negative); Blood Urine Neg (Negative); Glucose Urine UA Norm (Normal); Ketones Urine Negative (Negative); Leukocyte Esterase Urine Negative (Negative); Nitrate Urine Negative (Negative); Protein Urine Neg (Negative); Specific Gravity, Urine 1.005 (1.005-1.030); Urine Appearance Clear (CLEAR); Urine Color Straw (Yellow); Urobilinogen Urine Norm (Negative); pH Urine 7 (5-7)
[2023-03-03 10:00] VITALS: BP 220/100; PULSE 58; O2SAT 92
--- NOTE | 2023-03-03 10:23 | PC.PHAR ---
pts family verified pts medications-pts family states plavix 75mg daily and aspirin 81mg daily are on hold states the pt gets some kind of pain shot and had to stop taking plavix and aspirin 10 days before getting the pain shot on 02/24/23 states the pt is to get another pain shot on 03/19/23 and hasnt restarted taking plavix or aspirin as of 03/03/23-states the last time plavix and aspirin was taken was on 02/14/23-pts family states the pts amlodipine 5mg bid filled on 12/13/22 90d/s was dced -notes are made in the pharmacy comments
[2023-03-03] MEDS: losartan 50 mg Tablet 100 MG PO (10:39)
[2023-03-03] MEDS: ALPRAZolam 0.5 mg Tablet PO (10:39)
[2023-03-03] MEDS: hyDRALAzine 20 mg/mL INJ 1 mL IVP (10:41)
[2023-03-03 11:00] VITALS: BP 218/100; PULSE 71; O2SAT 94
[2023-03-03] MEDS: acetaminophen 500 mg Tablet 1000 MG PO (11:04)
[2023-03-03 11:30] VITALS: BP 200/90; PULSE 67; O2SAT 94
== END 2023-03-03 12:39 | disposition home or self-care (01) ==
PROVIDERS: Emergency Provider Family Medicine; PCP Family Medicine
DX: M48.062 Spinal stenosis, lumbar region with neurogenic claudication (principal); M62.81 Muscle weakness (generalized); M25.531 Pain in right wrist; Z79.82 Long term (current) use of aspirin; Z79.02 Long term (current) use of antithrombotics/antiplatelets; Z79.4 Long term (current) use of insulin; I25.10 Atherosclerotic heart disease of native coronary artery without angina pectoris; E11.9 Type 2 diabetes mellitus without complications; I10 Essential (primary) hypertension; E78.5 Hyperlipidemia, unspecified; Z95.1 Presence of aortocoronary bypass graft
CPT/HCPCS: 51701; 70450; 71045; 73110; 80053; 81003; 82550; 85025; 87040; 93005; 96374; 99285; J0360

== ENCOUNTER → 2023-03-19 14:57 | Outpatient (BNVA) | payer MEDICARE, MEDICAID, SELFPAY | PROVIDERS: PCP Family Medicine; Visit Provider Anesthesiology Pain Medicine | DX: M54.16 Radiculopathy, lumbar region (principal); M48.062 Spinal stenosis, lumbar region with neurogenic claudication | CPT/HCPCS: 64483; 64484; J1100; J3490 ==

== ENCOUNTER 2023-03-20 10:52 | Emergency (ER) | payer MEDICARE, MEDICAID, SELFPAY ==
[2023-03-20 11:01] VITALS: BP 271/111; PULSE 62; RESP 15; O2SAT 98
[2023-03-20 11:01] LABS: Glucose Point of Care 412 mg/dL (70-110)
--- NOTE | 2023-03-20 11:10 | ED_ITS ---
HPI - Recheck/Abnormal Lab/Rx General: Chief Complaint: Recheck/Abnormal Lab/Rx Stated Complaint: high blood sugar Time Seen by Provider: 03/20/23 10:55 Source: patient Limitations: no limitations History of Present Illness: 87-year-old female history of diabetes she is on insulin at home. States over the last 2 days she has been hyperglycemic states when she checked her sugar this morning was 530 it is now 412 she denies any pain anywhere denies any nausea vomiting or diarrhea states she is concerned about her sugar levels. She is hypertensive here as well. Review of Systems Const: Denies: fever(s) or chills Eyes: Denies: eye discomfort ENMT: Denies: throat pain or dental pain Card: Denies: chest pain Resp: Denies: dyspnea GI: Denies: abdominal pain, nausea, vomiting or diarrhea Musc: Denies: neck pain or back pain Skin/Breast: Denies: rash Neuro: Denies: headache(s) PFSH ED PFSH: Medical History Bilateral carotid artery stenosis CAD (coronary artery disease) Chronic constipation Diabetes HTN (hypertension), benign Hyperlipidemia Hyponatremia Peripheral vascular disease Surgical History H/O tubal ligation H/O: hysterectomy History of colonoscopy History of knee surgery Hx of CABG Family History Daughter Cancer Family/Other Cancer Lung disease Diabetes Grandmother Cancer Mother Dementia Stroke Brother Diabetes Denies family history of CAD (coronary artery disease) Clotting disorder Chronic kidney disease (CKD) Suicide Anesthesia complication Bleeding disorder Social History Smoking and tobacco status: never smoked Alcohol intake: never Substance/Drug Use: never Lives independently: Yes Physical Exam Const: COMMON NORMALS: no acute distress, patient oriented x3 and healthy appearing HENMT: COMMON NORMALS: normocephalic and atraumatic HEAD & SCALP: normocephalic and atraumatic Eye: COMMON NORMALS: Equal, round and reactive pupils present and EOMs intact bilaterally PUPIL: Yes Equal, round and reactive pupils present Neck/C-Spine: COMMON NORMALS: full ROM and supple Chest: COMMONS NORMALS: normal inspection of the chest and normal palpation of entire chest wall Resp: COMMON NORMALS: normal respiratory effort, No retractions, No use of accessory muscles and clear to auscultation bilaterally AUSCULTATION: clear to auscultation bilaterally Cardio: COMMON NORMALS: regular rate, regular rhythm and No murmurs present (Cardio) RATE: regular rate RHYTHM: regular rhythm GI: COMMON NORMALS: Normal to inspection, nondistended, normoactive bowel s ounds present, Soft to palpation, non-tender and no masses PALPATION: Yes Soft to palpation Extremity: COMMON NORMALS: normal to inspection and full ROM Neuro: COMMON NORMALS: patient oriented x3, moves all extremities and no focal motor deficits Psych: COMMON NORMALS: mental status grossly normal, Normal thought process present and cooperative THOUGHT PROCESS: Normal thought process present Skin: COMMON NORMALS: no rashes or lesions noted and no wounds GENERAL SKIN EXAM: no rashes or lesions noted Course Vital Signs: Vital signs: Vital Signs Pulse Rate 64 03/20/23 12:03 Respiratory Rate 20 H 03/20/23 12:03 Blood Pressure 233/91 03/20/23 12:03 Pulse Oximetry 98 03/20/23 12:03 Oxygen Delivery Me thod Room Air 03/20/23 12:03 MDM - Recheck/Abnormal Lab/Rx Medical Decision Making Patient presents with hyperglycemia her blood sugar is now down in the 200s she was hypertensive here as well her blood pressure is improved at discharge her blood work here is otherwise normal she feels improved she is stable for discharge she is to follow-up with PCP and return if worsening Medical Records I reviewed the patient's medical records. Lab Data I reviewed the patient's lab results. 03/20/23 11:05 03/20/23 11:05 Laboratory Results WBC 5.6 10^3/uL (4.0-10.0) 03/20/23 11:05 RBC 4.20 10^6/uL (4.1-5.3) 03/20/23 11:05 Hgb 11.2 g/dL (11.5-15.3) L 03/20/23 11:05 Hct 35.5 % (37.0-47.0) L 03/20/23 11:05 MCV 84.5 fl (81-99) 03/20/23 11:05 MCH 26.7 pg (28.0-34.0) L 03/20/23 11:05 MCHC 31.5 g/dL (30.0-36.0) 03/20/23 11:05 RDW 14.3 % (12.1-15.1) 03/20/23 11:05 Plt Count 283 10^3/cmm (130-400) 03/20/23 11:05 MPV 9.6 fL (7.4-10.4) 03/20/23 11:05 Neut % (Auto) 68.8 % 03/20/23 11:05 Lymph % (Auto) 23.1 % 03/20/23 11:05 [place] % (Auto) 7.5 % 03/20/23 11:05 Eos % (Auto) 0.0 % 03/20/23 11:05 Baso % (Auto) 0.2 % 03/20/23 11:05 Neut # (Auto) 3.85 10^3/uL (1.8-7.7) 03/20/23 11:05 Lymph # (Auto) 1.3 10^3/uL (0.8-4.8) 03/20/23 11:05 [place] # (Auto) 0.4 10^3/uL (0.2-0.9) 03/20/23 11:05 Eos # (Auto) 0.0 10^3/uL (0.0-0.8) 03/20/23 11:05 Baso # (Auto) 0.0 10^3/uL (0.0-0.1) 03/20/23 11:05 Nucleated RBC % (auto) 0 % 03/20/23 11:05 Nucleated RBCs # 0.0 /100WBC 03/20/23 11:05 Sodium 128 mmol/L (136-145) L 03/20/23 11:05 Potassium 4.4 mmol/L (3.5-5.1) 03/20/23 11:05 Chloride 94 mmol/L (98-107) L 03/20/23 11:05 Carbon Dioxide 23 mmol/L (22-29) 03/20/23 11:05 Anion Gap 15.4 (5-19) 03/20/23 11:05 BUN 25 mg/dL (8-23) H 03/20/23 11:05 Creatinine 1.0 mg/dL (0.5-0.9) H 03/20/23 11:05 GFR Calculation Not Reportable 03/20/23 11:05 Glucose 440 mg/dL (65-115) H 03/20/23 11:05 POC Glucose 412 mg/dL (70-110) H 03/20/23 10:57 Calculated Osmolality 289 mOsm/kg (285-295) 03/20/23 11:05 Calcium 9.0 mg/dL (8.5-10.5) 03/20/23 11:05 Total Bilirubin 0.2 mg/dL (0.15-1.2) 03/20/23 11:05 AST 14 U/L (0-32) 03/20/23 11:05 ALT 15 U/L (0-33) 03/20/23 11:05 Alkaline Phosphatase 100 U/L (35-105) 03/20/23 11:05 Total Protein 6.5 g/dL (6.6-8.7) L 03/20/23 11:05 Albumin 3.5 g/dL (3.5-5.2) 03/20/23 11:05 Globulin 3.0 g/dL (1.3-4.6) 03/20/23 11:05 Lipase 9 U/L (13-60) L 03/20/23 11:05 Discharge Plan Discharge Patient Disposition: Home Clinical Impression: Hyperglycemia, Hypertension Condition: Stable Prescriptions: No Action aspirin [Adult Low Dose Aspirin] 81 mg tablet,delayed release (DR/EC) 81 mg PO DAILY Rx Instructions: on hold per pts family 03/03/23 clopidogrel [Plavix] 75 mg tablet 75 mg PO DAILY Qty: 30 11RF Rx Instructions: med on hold per family 03/03/23 lactulose 10 gram/15 mL solution 10 g PO BID PRN (Reason: Constipation) Qty: 473 3RF insulin lispro protamin-lispro [Humalog Mix 75-25 KwikPen] 100 unit/mL (75-25) insulin pen 15 unit SUBCUT BID Qty: 15 12RF furosemide 20 mg tablet 20 mg PO DAILY Qty: 90 3RF hydrocodone-acetaminophen 7.5-325 mg tablet 1 tab PO Q6H PRN (Reason: Pain) 30 Days Qty: 120 0RF (DME) pen needle, diabetic 32 gauge x 5/32 needle See Rx Instructions .ROUTE .COMPLEX Qty: 50 11RF Dose Instruction: USE DIRECTED TWICE DAILY Rx Instructions: USE DIRECTED TWICE DAILY omeprazole 40 mg capsule,delayed release(DR/EC) 40 mg PO DAILY Qty: 90 3RF (DME) OneTouch Ultra Test Strip See Rx Instructions .ROUTE .COMPLEX Qty: 100 11RF Dose Instruction: USE 1 STRIP TO CHECK GLUCOSE TWICE DAILY Rx Instructions: USE 1 STRIP TO CHECK GLUCOSE TWICE DAILY alprazolam 0.5 mg tablet 0.5 mg PO BID Qty: 60 3RF insulin glargine [Lantus U-100 Insulin] 100 unit/mL solution 15 unit SUBCUT QAM Qty: 10 11RF losartan 100 mg tablet 100 mg PO QAM Discharge Orders: Discharge ED (Routine); Ordered 03/20/23 Ordered By: Cynthia Leon Referrals: Dallas Lorenzana MD [Primary Care Provider] - 1-3 days Discharge Diet: Advance as tolerated Discharge Activity: Resume usual activity Patient Instructions: Hypertension (ED), Diabetic Hyperglycemia (ED) Coding Level of Care Code ED Recreation Therapist for [place]
[2023-03-20 11:13] LABS: Basophils % 0.2 %; Hematocrit 35.5 % (37.0-47.0); Hemoglobin 11.2 g/dL (11.5-15.3); Lymphocytes # 1.3 10^3/uL (0.8-4.8); Lymphocytes % 23.1 %; Mean Corpuscular HGB Conc 31.5 g/dL (30.0-36.0); Mean Corpuscular Hemoglobin 26.7 pg (28.0-34.0); Mean Corpuscular Volume 84.5 fl (81-99); Mean Platelet Volume 9.6 fL (7.4-10.4); Monocytes # 0.4 10^3/uL (0.2-0.9); Monocytes % 7.5 %; Neutrophils # 3.85 10^3/uL (1.8-7.7); Neutrophils % 68.8 %; Nucleated Red Blood Cells % 0 %; Platelet Count 283 10^3/cmm (130-400); Red Cell Distribution Width 14.3 % (12.1-15.1); White Blood Count 5.6 10^3/uL (4.0-10.0)
[2023-03-20] MEDS: hyDRALAzine 20 mg/mL INJ 1 mL 10 MG IVP ×2 (11:25→12:02)
[2023-03-20] MEDS: insulin regular-human 100 units/1 mL 8 UNIT IVP (11:27)
[2023-03-20] MEDS: sodium chloride 0.9% 1,000 ML 999 ML IV (11:27)
[2023-03-20 11:34] LABS: Alanine Aminotransferase 15 U/L (0-33); Albumin Level 3.5 g/dL (3.5-5.2); Alkaline Phosphatase 100 U/L (35-105); Anion Gap 15.4 (5-19); Aspartate Amino Transferase 14 U/L (0-32); Blood Urea Nitrogen 25 mg/dL (8-23); Carbon Dioxide 23 mmol/L (22-29); Chloride 94 mmol/L (98-107); Glucose 440 mg/dL (65-115); Lipase 9 U/L (13-60); Osmolality Calculated 289 mOsm/kg (285-295); Potassium 4.4 mmol/L (3.5-5.1); Sodium 128 mmol/L (136-145); Total Bilirubin 0.2 mg/dL (0.15-1.2); Total Protein 6.5 g/dL (6.6-8.7)
[2023-03-20 12:03] VITALS: BP 233/91; PULSE 64; RESP 20; O2SAT 98
[2023-03-22 22:21] LABS: Glucose Point of Care 243 mg/dL (70-110)
== END 2023-03-20 13:35 | disposition home or self-care (01) ==
PROVIDERS: Emergency Provider Emergency Medicine; PCP Family Medicine
DX: E11.65 Type 2 diabetes mellitus with hyperglycemia (principal); I10 Essential (primary) hypertension; Z79.82 Long term (current) use of aspirin; Z79.02 Long term (current) use of antithrombotics/antiplatelets; Z79.4 Long term (current) use of insulin; I25.10 Atherosclerotic heart disease of native coronary artery without angina pectoris; E78.5 Hyperlipidemia, unspecified; Z95.1 Presence of aortocoronary bypass graft
CPT/HCPCS: 36415; 36416; 80053; 82962; 83690; 85025; 96374; 96375; 96376; 99284; J0360; J1815; J7030

== ENCOUNTER → 2023-04-02 10:00 | Outpatient (BNVA) | payer MEDICARE, MEDICAID, SELFPAY | PROVIDERS: PCP Family Medicine; Visit Provider Anesthesiology Pain Medicine | DX: M48.062 Spinal stenosis, lumbar region with neurogenic claudication (principal); M47.816 Spondylosis without myelopathy or radiculopathy, lumbar region | CPT/HCPCS: 99213 ==

== ENCOUNTER → 2023-04-15 14:57 | Outpatient (BNVA) | payer MEDICARE, MEDICAID, SELFPAY | PROVIDERS: PCP Family Medicine; Visit Provider Family Medicine | DX: R30.0 Dysuria (principal) | CPT/HCPCS: 81000 ==

== ENCOUNTER → 2023-05-28 15:00 | Outpatient (BNVA) | payer MEDICARE, SELFPAY | PROVIDERS: PCP Family Medicine; Visit Provider Nurse Practitioner Family | DX: I25.10 Atherosclerotic heart disease of native coronary artery without angina pectoris (principal); I10 Essential (primary) hypertension | CPT/HCPCS: 99214 ==

== ENCOUNTER → 2023-07-02 10:54 | Outpatient (BNVA) | payer MEDICARE, SELFPAY | PROVIDERS: PCP Family Medicine; Visit Provider Family Medicine | DX: I63.9 Cerebral infarction, unspecified (principal); E87.1 Hypo-osmolality and hyponatremia; E11.9 Type 2 diabetes mellitus without complications; I10 Essential (primary) hypertension | CPT/HCPCS: 80053; 83036; 85025 ==

== ENCOUNTER 2023-08-01 17:16 | Inpatient (IN) | payer MEDICARE, MEDICAID, SELFPAY ==
[2023-08-01] VITALS (17 sets, daily range): BP systolic 130–222; BP diastolic 62–151; PULSE 68–127; RESP 14–18; TEMP 36.8–38.3; O2SAT 90–98; BMI 32.9; BMI 27.8
--- NOTE | 2023-08-01 17:18 | XRR_ITS ---
PROCEDURE INFORMATION: Exam: XR Chest Exam date and time: 08/01/2023 6:34 PM Age: 87 years old Clinical indication: Shortness of breath; Prior surgery; Surgery date: 6+ months; Surgery type: Cabg; Patient HX: Feeling weak and tired for last 1 week along with difficulty in breathing getting worse for last 3 to 4 days associated with chest tightness. History of a fall few weeks ago; Tested positive for covid; Additional info: SOB TECHNIQUE: Imaging protocol: Radiologic exam of the chest. Views: 1 view. COMPARISON: CR XR chest 1V portable [id number] 03/03/2023 8:30 AM FINDINGS: Lungs: There indistinct central interstitial markings, central lower lung predominant ground-glass opacity and peripheral interlobular septal thickening (Alex B-lines). Pleural spaces: There is no pleural effusion or pneumothorax. Heart/Mediastinum: There is mild enlargement of the cardiac silhouette. Bones/joints: Sternal wires are present. There is no displacement to suggest sternal dehiscence. XR/XR chest 1V portable [id number] IMPRESSION: Pulmonary edema.
--- NOTE | 2023-08-01 17:29 | ECG_ITS ---
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 Measurements Intervals [place] Rate: 70 P: 56 SC: 184 QRS: -69 QRSD: 141 T: 60 QT: 415 QTc: 451 Interpretive Statements SINUS RHYTHM LEFT ATRIAL ENLARGEMENT [-0.15mV P-WAVE IN V1/V2] RIGHT BUNDLE BRANCH BLOCK [120+ ms QRS DURATION, UPRIGHT V1, 40+ ms S IN I/aVL/V4/V5/V6] LEFT ANTERIOR FASCICULAR BLOCK [QRS AXIS <= -45, QR IN I, RS IN II] POSSIBLE LEFT VENTRICULAR HYPERTROPHY [VOLTAGE CRITERIA PLUS LAE OR QRS WIDENING] POSSIBLE ANTERIOR MYOCARDIAL INFARCTION , PROBABLY OLD [30 ms Q WAVE IN V3/V4, OR R < 0.2 mV IN V4] Compared to ECG 03/03/2023 07:57:56 Atrial abnormality now present Myocardial infarct finding now present Sinus bradycardia no longer present Electronically Signed On 08-02-2023 13:32:51 COMPUTER SERVICE TECHNICIAN by Teodoro Mancini M.D. [id number]
[2023-08-01 18:05] LABS: Basophils % 0.8 %; Eosinophils # 0.2 10^3/uL (0.0-0.8); Hematocrit 33.2 % (36-47); Lymphocytes # 0.8 10^3/uL (0.8-4.8); Lymphocytes % 16.2 %; Mean Corpuscular Hemoglobin 26.5 pg (27-33); Mean Corpuscular Volume 85.6 fl (85-98); Mean Platelet Volume 10.5 fL (7.4-10.4); Monocytes # 0.5 10^3/uL (0.2-0.9); Monocytes % 10.8 %; Neutrophils # 3.43 10^3/uL (1.8-7.7); Neutrophils % 68.8 %; Nucleated Red Blood Cells % 0 %; Platelet Count 198 10^3/cmm (157-399); Red Blood Count 3.88 10^6/uL (3.85-5.65); Red Cell Distribution Width 14.6 % (12.1-15.1); White Blood Count 4.99 10^3/uL (3.29-11.43)
[2023-08-01] MEDS: sodium chloride 0.9% 1,000 ML 999 ML IV (18:22)
[2023-08-01 18:37] LABS: Alanine Aminotransferase 36 U/L (0-33); Albumin Level 3.5 g/dL (3.5-5.2); Alkaline Phosphatase 115 U/L (35-105); Anion Gap 14.5 (5-19); Aspartate Amino Transferase 37 U/L (0-32); Blood Urea Nitrogen 18 mg/dL (8-23); Calcium 8.9 mg/dL (8.5-10.5); Carbon Dioxide 22 mmol/L (22-29); Chloride 105 mmol/L (98-107); Glucose 125 mg/dL (65-115); Lipase 10 U/L (13-60); NT Pro B Type Natriuretic Pept 23289 pg/mL (0-450); Osmolality Calculated 287 mOsm/kg (285-295); Potassium 4.5 mmol/L (3.5-5.1); Sodium 137 mmol/L (136-145); Total Bilirubin 0.2 mg/dL (0.15-1.2); Total Protein 6.5 g/dL (6.6-8.7)
[2023-08-01 18:41] LABS: Glucose Urine UA Norm (Normal); Protein Urine 1+ (Negative); Specific Gravity, Urine 1.005 (1.005-1.030); Urine Appearance Hazy (CLEAR); Urine Color Yellow (Yellow); pH Urine 7 (5-7)
[2023-08-01 18:42] LABS: Add Urine Culture? Yes; Add Urine Microscopic? YES; Bacteria Urine TRACE /hpf; Bilirubin Urine Neg (Negative); Blood Urine Trace (Negative); Ketones Urine Negative (Negative); Leukocyte Esterase Urine 2+ (Negative); Nitrate Urine Negative (Negative); RBC Urine 0-4 /hpf (0-2); Renal Epithelial Cells Urine N /hpf; Squamous Epithelial Cell Urine 0-4 /hpf (0-5); Urobilinogen Urine Norm (Negative)
--- NOTE | 2023-08-01 18:48 | ED_ITS ---
HPI - Weakness 2 General: Chief complaint: Weakness Stated complaint: abd pain, sob Time Seen by Provider: 08/01/23 18:05 History of Present Illness: 87-year-old female brought to the emergency room by family due to shortness of breath, weakness, cough and generalized body aches within the past few days. Patient has any chest pain, coughing up blood or vomiting blood. No known sick contact or recent foreign travel. Patient with history of CHF and noticed some leg swelling. Associated symptoms: Denies diaphoresis or headache(s) Review of Systems 2 General: Reports: 10 or more systems reviewed and unremarkable except in HPI and below Const: Reports: body aches, fatigue and malaise; Denies: diaphoresis or change in sleep pattern Resp: Reports: dyspnea; Denies: productive cough, non-productive cough, wheezing, stridor, pain on inspiration or change in phlegm color Neuro: Denies: headache(s), numbness in extremities, weakness in extremities, sensory changes, lack of coordination, difficulty walking or frequent falls All/Imm: Denies: urticaria, throat swelling or tongue swelling PFSH ED 2 PFSH: Medical History (Updated 08/01/23 @ 23:28 by Mt Rubio MD) 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 CVA (cerebral vascular accident) Lacunar infarct Subclavian arterial stenosis Atherosclerotic heart disease of [place] coronary artery without angina pectoris Hyponatremia CAD (coronary artery disease) HTN (hypertension), benign Hyperlipidemia Bilateral carotid artery stenosis Peripheral vascular disease Chronic constipation Diabetes Surgical History History of colonoscopy Hx of CABG H/O: hysterectomy H/O tubal ligation History of knee surgery Family History Daughter Cancer Family/Other Cancer Lung disease Diabetes Grandmother Cancer Mother Dementia Stroke Brother Diabetes Denies family history of CAD (coronary artery disease) Clotting disorder Chronic kidney disease (CKD) Suicide Anesthesia complication Bleeding disorder Social History Smoking and tobacco/nicotine status: never used tobacco/nicotine Alcohol intake: never Substance/Drug Use: never Lives independently: Yes Physical Exam 2 Const: COMMON NORMALS: no acute distress, average body habitus, patient oriented x3, no limitations, healthy appearing, alert and well nourished Neck/C-Spine: COMMON NORMALS: no JVD Chest: COMMONS NORMALS: normal inspection of the chest, normal palpation of entire chest wall, normal inspection of the breasts and normal palpation of the breasts Breast/axilla inspection: Yes normal inspection of the breasts B REAST/AXILLA PALPATION: Yes normal palpation of the breasts Resp: AUSCULTATION: rales and diminished lung sounds Cardio: COMMON NORMALS: no JVD, regular rate, regular rhythm, S1 normal heart sound present, S2 normal heart sound present, No gallops present (Cardio), No clicks present (Cardio), No murmurs present (Cardio), No rub (Cardio) and Peripheral pulses 2+ throughout PALPATION: normal PMI RATE: regular rate RHYTHM: regular rhythm HEART SOUNDS: S1 normal heart sound present and S2 normal heart sound present PERIPHERAL PULSES: Peripheral pulses 2+ throughout GI: COMMON NORMALS: Normal to inspection, nondistended, normoactive bowel sounds present, Soft to palpation, non-tender, No hepatosplenomegaly present, no masses and no bruits PALPATION: Yes Soft to palpation and Yes No hepatosplenomegaly present Neuro: COMMON NORMALS: patient oriented x3 SENSORIUM/ORIENTATION: Yes alert Course 2 Consultations: Consultation #1: I discussed patient with Dr. Ascencio. He presented emergency room to see patient. Vital Signs: Vital signs: Vital Signs Temperature 98.6 F 08/02/23 04:00 Pulse Rate 62 08/02/23 05:00 Respiratory Rate 17 08/02/23 05:00 Blood Pressure 139/74 08/02/23 05:00 Pulse Oximetry 91 08/02/23 04:20 Oxygen Delivery Me thod Room Air 08/02/23 05:00 Oxygen Flow Rate 2 08/01/23 20:38 MDM - Weakness Medical Decision Making She made comfortable emergency room and had extensive workup including CBC, CMP, troponin, BNP. She had x-ray and COVID testing. Discussed current plan and treatment with family. I discussed patient with the hospitalist. She will be admitted for further evaluation and treatment. He was given IV Lasix and antibiotics. Lab Data 08/02/23 03:37 08/02/23 03:[address] 08/01/23 20:38 IMPRESSION: 1. Exam confirms findings of heart failure with cardiomegaly, mild pulmonary edema, and small bilateral pleural effusions. 2. No ground-glass infiltrate to confirm COVID-19 pneumonia. 3. Hyperdense liver. Differential diagnosis includes hemochromatosis as well as medication effect from amiodarone or gold. Laboratory Results WBC 4.99 10^3/uL (3.29-11.43) 08/01/23 17:54 RBC 3.88 10^6/uL (3.85-5.65) 08/01/23 17:54 Hgb 10.30 g/dL (11.27-16.99) L 08/01/23 17:54 Hct 33.2 % (36-47) L 08/01/23 17:54 MCV 85.6 fl (85-98) 08/01/23 17:54 MCH 26.5 pg (27-33) L 08/01/23 17:54 MCHC 31.0 g/dL (30-55) 08/01/23 17:54 RDW 14.6 % (12.1-15.1) 08/01/23 17:54 Plt Count 198 10^3/cmm (157-399) 08/01/23 17:54 MPV 10.5 fL (7.4-10.4) H 08/01/23 17:54 Neut % (Auto) 68.8 % 08/01/23 17:54 Lymph % (Auto) 16.2 % 08/01/23 17:54 [place] % (Auto) 10.8 % 08/01/23 17:54 Eos % (Auto) 3.0 % 08/01/23 17:54 Baso % (Auto) 0.8 % 08/01/23 17:54 Neut # (Auto) 3.43 10^3/uL (1.8-7.7) 08/01/23 17:54 Lymph # (Auto) 0.8 10^3/uL (0.8-4.8) 08/01/23 17:54 [place] # (Auto) 0.5 10^3/uL (0.2-0.9) 08/01/23 17:54 Eos # (Auto) 0.2 10^3/uL (0.0-0.8) 08/01/23 17:54 Baso # (Auto) 0.0 10^3/uL (0.0-0.1) 08/01/23 17:54 Nucleated RBC % (auto) 0 % 08/01/23 17:54 Nucleated RBCs # 0.0 /100WBC 08/01/23 17:54 ESR 21 mm/hr (0-15) H 08/01/23 17:54 D-Dimer 0.65 ug/mLFEU (0-0.59) H 08/01/23 17:54 Sodium 137 mmol/L (136-145) 08/01/23 17:54 Potassium 4.5 mmol/L (3.5-5.1) 08/01/23 17:54 Chloride 105 mmol/L (98-107) 08/01/23 17:54 Carbon Dioxide 22 mmol/L (22-29) 08/01/23 17:54 Anion Gap 14.5 (5-19) 08/01/23 17:54 BUN 18 mg/dL (8-23) 08/01/23 17:54 Creatinine 1.0 mg/dL (0.5-0.9) H 08/01/23 17:54 GFR Calculation Not Reportable 08/01/23 17:54 Glucose 125 mg/dL (65-115) H 08/01/23 17:54 Calculated Osmolality 287 mOsm/kg (285-295) 08/01/23 17:54 Lactic Acid 1.2 mmol/L (0.5-2.2) 08/01/23 17:54 Calcium 8.9 mg/dL (8.5-10.5) 08/01/23 17:54 Iron 31 ug/dL (37-145) L 08/01/23 17:54 TIBC 326 mcg/dl 08/01/23 17:54 % Saturation 9.5 % (20-50) L 08/01/23 17:54 Unsat Iron Binding 295 ug/dL (112-347) 08/01/23 17:54 Total Bilirubin 0.2 mg/dL (0.15-1.2) 08/01/23 17:54 AST 37 U/L (0-32) H 08/01/23 17:54 ALT 36 U/L (0-33) H 08/01/23 17:54 Alkaline Phosphatase 115 U/L (35-105) H 08/01/23 17:54 Troponin T Baseline 81 ng/L (0-10) H 08/01/23 17:54 Troponin T 120 Minute 89.67 ng/L (0-10) H 08/01/23 19:34 Delta Troponin T 8.67 ABS# (0-10) 08/01/23 19:34 C-Reactive Protein 3.0 mg/L (0.0-4.9) 08/01/23 17:54 NT-Pro-B Natriuret Pep 03895 pg/mL (0-450) H 08/01/23 17:54 Total Protein 6.5 g/dL (6.6-8.7) L 08/01/23 17:54 Albumin 3.5 g/dL (3.5-5.2) 08/01/23 17:54 Globulin 3.0 g/dL (1.3-4.6) 08/01/23 17:54 Lipase 10 U/L (13-60) L 08/01/23 17:54 Vitamin B12 370 pg/mL (232-1245) 08/01/23 17:54 Procalcitonin 0.03 ng/mL (0-0.5) 08/01/23 17:54 TSH 2.29 uIU/mL (0.27-4.20) 08/01/23 17:54 Urine Color Yellow (Yellow) 08/01/23 18:09 Urine Appearance Hazy (CLEAR) A 08/01/23 18:09 Urine pH 7 (5-7) 08/01/23 18:09 Ur Specific [place] 1.005 (1.005-1.030) 08/01/23 18:09 Urine Protein 1+ (Negative) H 08/01/23 18:09 Urine Glucose (UA) Norm (Normal) 08/01/23 18:09 Urine Ketones Negative (Negative) 08/01/23 18:09 Urine Blood Trace (Negative) H 08/01/23 18:09 Urine Nitrate Negative (Negative) 08/01/23 18:09 Urine Bilirubin Neg (Negative) 08/01/23 18:09 Urine Urobilinogen Norm mg/dL (Negative) 08/01/23 18:09 Ur Leukocyte Esterase 2+ (Negative) H 08/01/23 18:09 Urine RBC 0-4 /hpf (0-2) H 08/01/23 18:09 Urine WBC 10-15 /hpf (0-5) H 08/01/23 18:09 Ur Squamous Epith Cells 0-4 /hpf (0-5) H 08/01/23 18:09 Ur Renal Epithelial Cell N /hpf 08/01/23 18:09 Amorphous Sediment Not Reportable 08/01/23 18:09 Urine Bacteria Trace /hpf (NONE) 08/01/23 18:09 SARS-CoV-2 Ag (Rapid) Positive (Negative) H 08/01/23 18:05 All radiology interpretation(s) finalized by discharge EKG Data EKG 1: Interpretation: Sinus rhythm rate of 74 with a right bundle branch block. There is nonspecific ST changes. No ST elevation. SC interval 186 QT 404 Critical Care Time 2 Critical Care Time: Critical Care Time: Yes Total Critical Care Time: 45 Attestation: Time spent reviewing past medical history and previous records. Time spent discussing patient with family. Time spent discussing patient with the hospitalist. Time spent reevaluating patient after each treatment. Patient was given IV nitro and hydralazine. Patient was given IV Lasix Discharge Plan Discharge Patient Disposition: Admitted As Inpatient Admit Provider: Margaret Arshad Clinical Impression: COVID, Transaminitis, Hypertension, Elevated troponin, CHF (congestive heart failure) Condition: Stable Coding Level of Care Code ED Food Mobile Driver for [place]
[2023-08-01 18:49] LABS: SARS Covid-2 Antigen Positive (Negative)
--- NOTE | 2023-08-01 18:55 | ECG_ITS ---
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 Measurements Intervals [place] Rate: 74 P: 70 OR: 186 QRS: -59 QRSD: 144 T: 69 QT: 404 QTc: 450 Interpretive Statements SINUS RHYTHM POSSIBLE LEFT ATRIAL ENLARGEMENT [-0.1mV P-WAVE IN V1/V2] RIGHT BUNDLE BRANCH BLOCK [120+ ms QRS DURATION, UPRIGHT V1, 40+ ms S IN I/aVL/V4/V5/V6] LEFT ANTERIOR FASCICULAR BLOCK [QRS AXIS <= -45, QR IN I, RS IN II] Compared to ECG 08/01/2023 17:29:31 Myocardial infarct finding no longer present Electronically Signed On 08-02-2023 13:32:45 ENROBER TENDER by Teodoro Mancini M.D. [id number]
[2023-08-01 19:08] LABS: Troponin(5th) Baseline 81 ng/L (0-10)
[2023-08-01] MEDS: FUROsemide 10 mg/mL SDV 10mL 60 MG IVP (19:13)
[2023-08-01] MEDS: cefTRIAXone 1,000 MG in sodium chloride 0.9% (plus) 50 ML 100 MG IV (19:56)
[2023-08-01] MEDS: hyDRALAzine 20 mg/mL INJ 1 mL 10 MG IVP (19:56)
[2023-08-01 19:57] LABS: Troponin 5 2HR 89.67 ng/L (0-10); Troponin 5 2HR Delta 8.67 ABS# (0-10)
[2023-08-01] MEDS: nitroglycerin 1 gm/inch oint Pkt 0.5 INCH TOPICAL (19:57)
[2023-08-01 20:28] LABS: D Dimer 0.65 ug/mLFEU (0-0.59)
[2023-08-01 20:37] LABS: Lactic Sepsis W/Reflex 1.2 mmol/L (0.5-2.2)
[2023-08-01] MEDS: dexamethasone 10 mg/mL INJ 6 MG IVP (20:37)
--- NOTE | 2023-08-01 20:38 | CTR_ITS ---
PROCEDURE INFORMATION: Exam: CT Chest Without Contrast; Diagnostic Exam date and time: 08/01/2023 9:28 PM Age: 87 years old Clinical indication: Shortness of breath; Prior surgery; Surgery date: 6+ months; Surgery type: Cabg; Patient HX: SOB. Covid +. History of chf. ; Additional info: SOB, covid, chf TECHNIQUE: Imaging protocol: Diagnostic computed tomography of the chest without contrast. Radiation optimization: All CT scans at this facility use at least one of these dose optimization techniques: automated exposure control; mA and/or kV adjustment per patient size (includes targeted exams where dose is matched to clinical indication); or iterative reconstruction. REPORTING DATA: Count of CT and Cardiac NM exams in prior 12 months: This patient has received 2 known CTs and 0 known cardiac nuclear medicine studies in the 12 months prior to the current study. COMPARISON: CR XR chest 1V portable [id number] 08/01/2023 6:34 PM RADIATION DOSE METRICS: Total DLP (mGy-cm): 389.38 FINDINGS: Thyroid: Homogeneous thyroid. Lungs: Lungs are notable for diffuse interlobular septal thickening and thickening of the peribronchovascular interstitium. Pleural spaces: Small non loculated bilateral pleural effusions. Heart: Changes of prior myocardial revascularization are noted. Moderate cardiomegaly with prominence of the left ventricle. Coronary arteries: Extensive coronary artery hyperdensity could be calcification and/or stent material. Lymph nodes: Scattered borderline mediastinal lymph nodes. No axillary or supraclavicular adenopathy. Vasculature: Heavily calcified thoracic aorta. Dense calcific plaque at the origin of the left subclavian artery noted, potentially a site of hemodynamically significant stenosis. Diaphragm: Small sliding hiatal hernia. Bones/joints: Healed median sternotomy. Mild degenerative change in the thoracic spine with patent spinal canal. No acute fracture or destructive lesion. Soft tissues: Unremarkable. CT/CT chest wo con [id number] IMPRESSION: 1. Exam confirms findings of heart failure with cardiomegaly, mild pulmonary edema, and small bilateral pleural effusions. 2. No ground-glass infiltrate to confirm COVID-19 pneumonia. 3. Hyperdense liver. Differential diagnosis includes hemochromatosis as well as medication effect from amiodarone or gold.
--- NOTE | 2023-08-01 20:41 | P.HP_ITS ---
Providers/Chief Complaint 2 Admitting Physician: Margaret Arshad MD Primary Care Provider: Dallas Lorenzana MD Chief Complaint: abd pain, sob History of Present Illness Olga Anna is a 87 year old female with past medical history of uncontrolled hypertension, CAD post CABG, subclavian stenosis, carotid artery disease, stroke, type 2 diabetes mellitus presents to the ER today because of feeling weak and tired for last 1 week along with difficulty in breathing which has been getting worse for last 3 to 4 days associated with chest tightness. Patient also with history of a fall few weeks ago. He states he usually gets unsteady on her feet when her blood sugar drops. She sustained a bruise on her face. Denies any pain, bleeding, nausea, vomiting, headache. She does check her blood pressures at home and usually running more than 150 systolic. In the ER she was found to be COVID-positive, saturating well on room air with elevated blood pressures. Patient continued to complain of shortness of breath and tiredness. On examination patient is systolic blood pressure of 220/118 mmHg, heart rate of 88 bpm saturating 97% on room air. Review of Systems 2 General: Reports: 10 or more systems reviewed and unremarkable except in HPI and below Const: Denies: fever(s), chills, body aches, change in appetite, change in weight, malaise, night sweats, diaphoresis, change in sleep pattern, daytime sleepiness or snoring Eyes: Denies: change in vision, blurry vision, photophobia, eye discomfort or eye discharge ENMT: Denies: throat pain, enlarged tonsils, hoarseness, mouth pain, oral sores, dry mouth, tinnitus, nasal congestion or post nasal drip Card: Denies: chest pain, palpitations, irregular heart rhythm, edema, swelling of feet/ankles, lightheadedness, syncope, pre-syncope, dyspnea on exertion, orthopnea, leg pain with exertion or acrocyanosis Resp: Denies: dyspnea, productive cough, non-productive cough, wheezing, stridor, pain on inspiration, change in phlegm color, hemoptysis or chest congestion GI: Denies: abdominal pain, nausea, vomiting, hematemesis, coffee ground emesis, dysphagia, heartburn, diarrhea, constipation, bloating, GI cramping, change in bowel habits, pain on defecation, hematochezia or melena : Denies: flank pain, dysuria, urinary frequency, urinary urgency, urinary hesitancy, nocturia or hematuria Musc: Denies: neck pain, back pain, extremity pain, joint pain, joint swelling, joint redness, joint stiffness or limited range of motion Neuro: Denies: headache(s), numbness in extremities, weakness in extremities, sensory changes, lack of coordination, difficulty walking, frequent falls, dizziness, vertigo, confusion, Slurred speech present, difficulty communicating thoughts or seizure-like activity Psych: Denies: anxiety, depression, mood swings, panic attacks, hopelessness or irritability Endo: Denies: polyuria, polydipsia, tired all the time, cold intolerance, excessive sweating, flushing or heat intolerance Eyal/Lymph: Denies: easy bruising or easy bleeding All/Imm: Denies: tongue swelling, facial swelling or acute wheezing Medications/Allergies Home Medications Medication Instructions Recorded Confirmed Last Taken Type clopidogrel 75 mg tablet (Plavix) 75 mg PO DAILY #30 tabs 10/03/22 07/02/23 03/20/23 Rx aspirin 81 mg tablet,delayed 81 mg PO DAILY 01/22/23 07/02/23 03/20/23 History release (Adult Low Dose Aspirin) losartan 100 mg tablet 100 mg PO QAM 03/03/23 07/02/23 03/20/23 History insulin glargine 100 unit/mL 15 unit (0.15 mL) SUBCUT QAM #10 mL 03/10/23 07/02/23 03/20/23 Rx subcutaneous solution (Lantus U-100 Insulin) furosemide 20 mg tablet 20 mg PO DAILY #90 tabs 03/18/23 07/02/23 03/20/23 Rx insulin lispro protamine-lispro 10 unit SUBCUT BID 04/30/23 07/02/23 Unknown History 100 unit/mL (75-25) subcutaneous pen (Humalog Mix 75-25 KwikPen) clonidine HCl 0.1 mg tablet 0.1 mg PO TID PRN hypertensive 05/08/23 07/02/23 Unknown Rx emergency #30 tabs blood-glucose meter (Accu-Chek #1 ea 05/14/23 07/02/23 Unknown Rx Guide Glucose Meter) hydrocodone 7.5 mg-acetaminophen 1 tab PO Q6H PRN Pain 1 month #120 10/11/23 11/29/23 Unknown Rx 325 mg tablet tabs lactulose 10 gram/15 mL oral 10 g (15 mL) PO BID PRN 05/14/23 07/02/23 Unknown Rx solution Constipation #473 mL omeprazole 40 mg capsule,delayed 40 mg PO DAILY #90 caps 06/15/23 07/02/23 Unknown Rx release pen needle, diabetic 32 gauge x #50 ea 06/15/23 07/02/23 Unknown Rx insulin aspar prot-insulin aspart See Rx Instructions SUBCUT BID #15 06/18/23 07/02/23 Unknown Rx 100 unit/mL (70-30) subcutaneous mL pen (Novolog Mix 70-30FlexPen U-100) alprazolam 0.5 mg tablet 0.5 mg PO BID #60 tabs 07/30/23 Unknown Rx blood sugar diagnostic (True #100 ea 07/30/23 Unknown Rx Metrix Glucose Test Strip) Allergies Allergy/AdvReac Type Severity Reaction Status Date / Time ezetimibe [From Zetia] Allergy muscle pain Verified 05/28/23 15:36 Eyaqqwa-GCN-FeI Reductase Allergy muscle pain Verified 05/28/23 15:36 Inhibitor [Snuxkic-Kpf-Cpm Reductase Inhibitor] carvedilol [From Coreg] AdvReac Intermediate dizziness Verified 05/28/23 15:36 Lexapro Allergy Unknown hyponatremi Uncoded 05/28/23 15:36 a PFSH Acute 2 PFSH: Medical History (Updated 08/01/23 @ 23:28 by Mt Rubio MD) 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 CVA (cerebral vascular accident) Lacunar infarct Subclavian arterial stenosis Atherosclerotic heart disease of [place] coronary artery without angina pectoris Hyponatremia CAD (coronary artery disease) HTN (hypertension), benign Hyperlipidemia Bilateral carotid artery stenosis Peripheral vascular disease Chronic constipation Diabetes Surgical History History of colonoscopy Hx of CABG H/O: hysterectomy H/O tubal ligation History of knee surgery Family History Daughter Cancer Family/Other Cancer Lung disease Diabetes Grandmother Cancer Mother Dementia Stroke Brother Diabetes Denies family history of CAD (coronary artery disease) Clotting disorder Chronic kidney disease (CKD) Suicide Anesthesia complication Bleeding disorder Social History Smoking and tobacco/nicotine status: never used tobacco/nicotine Alcohol intake: never Substance/Drug Use: never Lives independently: Yes Vitals/I&O/Wt Last Vital Signs Temp 101.0 F H 08/01/23 20:38 Pulse 81 08/01/23 20:38 Resp 18 08/01/23 20:38 BP 155/77 08/01/23 20:38 Pulse Ox 98 08/01/23 20:38 O2 Del Method Nasal Cannula 08/01/23 20:38 O2 Flow Rate 2 08/01/23 20:38 08/01/23 08/01/23 08/01/23 06:59 14:59 22:59 Intake Total 1050 / 1050 Balance 1050 / 1050 Weight last 48 hrs Weight 81.647 kg Physical Exam 2 Narrative: General: No acute distress, AO x3 HEENT: PERRLA, pupils bilaterally equal and reactive, old bruising present over left cheek under the eye, no black eye or raccoon sign Chest: Normal vesicular breath sounds, bilateral occasional rhonchi present , equal good air entry bilaterally CVS: S1-S2 regular, no murmurs, no tachycardia, no gallops, no rubs Abdomen: Soft, nontender, no organomegaly, bowel sounds present Neuro: No focal deficits, no facial deformity, AO x3, power 5/5 in all limbs Urinary Catheter Management: Rivera: Cath Placed During This Visit: yes Urinary Catheter Date of Insertion: 08/01/23 Urinary Catheter Time of Insertion: 20:39 Data 08/01/23 17:54 08/01/23 17:54 A&P Assessment and plan (1) Shortness of breath: (2) Uncontrolled hypertension: (3) CHF (congestive heart failure): (4) COVID: (5) CAD (coronary artery disease): Qualifiers: Coronary Disease-Associated Artery/Lesion type: [place] artery [place] vs. transplanted heart: [place] heart Associated angina: without angina Qualified Code(s): I25.10 - Atherosclerotic heart disease of [place] coronary artery without angina pectoris Plan Uncontrolled hypertension: Goal blood pressure less than 140/90 mmHg. Patient's blood pressure elevated to more than 190 systolic. Started on nitro drip. Continue home dose of oral antihypertensives. Add 25 mg of hydralazine 3 times a day. Down titrate nitro drip keeping blood pressures under goal. Shortness of breath: Most likely in setting of diastolic congestive heart failure due to uncontrolled hypertension along with COVID-19. Already received IV Lasix in the ER. Rivera catheterization. Strict improper charting, daily weights. Fluid restriction below 1500 cc. Will redose Lasix as per fluid status. COVID-19 pneumonia: Mild disease. Patient currently on room air. Oxygen supplementation keeping saturation over 88%. Dexamethasone 6 mg daily. DuoNeb every 6 hour, budesonide twice daily Pulmonary toilet with incentive spirometry flutter valve. We will monitor inflammatory markers including CRP every 48 hours. Check D-dimer. If elevated will do CT otherwise CT chest without contrast for further evaluation of pneumonia. Will plan for anticoagulation as per the results. Check sputum culture, procalcitonin, urine Legionella, bacterial antigen, blood culture. Procalcitonin negative. Low suspicion of bacterial infection for now. For now start patient on Levaquin for atypical coverage for next 5 days. CAD: Post CABG. Denies any active chest pain. Monitor troponin cycle. Continue with home dose of aspirin, Plavix, statin. Check lipid panel. Type 2 diabetes mellitus: Appreciate recent A1c. Continue with home dose of glargine. Insulin sliding scale at low-dose protocol. CODE STATUS: Patient's son and daughter will be the DPOA. Full code. Cardiac carb consistent diet. Heparin 5000 every 12 hourly for DVT prophylaxis Protonix for PUD prophylaxis. Attestations 2 Medical Necessity Statement*: Admission for more than 2 midnights for management of uncontrolled hypertension, shortness of breath in setting of COVID-19 and diastolic congestive heart failure Critical Care Time: The high probability of a clinically significant, sudden or life threatening deterioration of the patient's [cardiac, pulmonary, ID] system(s) required my full and direct attention, intervention and personal management. The critical care time is as shown. This time is in addition to time spent performing any reported procedures but includes the following: [x] Data and vital sign review and interpretation [x] Patient assessment, examination and intervention [x] Documentation [x] Medication orders and management Coding Level of Care Code Critical Care >/= 30 minutes Critical care time (in minutes): 60 The high probability of a clinically significant, sudden or life threatening deterioration, as referenced in this documentation, required my full and direct attention, intervention and personal management. The critical care time shown is in addition to time spent performing any reported separately billable procedures and includes the following: [x] Data and vital sign review and interpretation [x ] Patient assessment, examination and intervention [x] Medication orders and management [x] Patient/Family updates as able [x] Care Coordination and Documentation. Other Coding Information This patient has a high probability of clinically significant, sudden or life threatening deterioration of the patient's (neurological/pulmonary/cardiac/renal/ID/endocrine) systems required my full, direct attention, the highest level of physician preparedness for urgent intervention and personal management. I managed/supervised life or organ supporting interventions that required frequent physician assessment. I devoted my full attention in the ER to the direct care of this patient for the period of time indicated above. Time I spent with family or surrogate(s) is included only if the patient was incapable of providing necessary information or participating in decision making. This time includes the following services provided: Telemetry review Hemodynamic interpretation, assessment and management Review and interpretation of CXR Review and interpretation of lab values Review and interpretation of microbiologic data and culture results Review of medications and administration Review and interpretation of Nutrition requirements and management Discussion of management with other consultants and services Clinical update to family members Diagnoses Shortness of breath R06.02 Uncontrolled hypertension I10 CHF (congestive heart failure) I50.9 COVID U07.1 Coronary artery disease involving [place] coronary artery of [place] heart without angina pectoris I25.10 Coronary Disease-Associated Artery/Lesion type: [place] artery [place] vs. transplanted heart: [place] heart Associated angina: without angina
[2023-08-01 20:44] LABS: Procalcitonin 0.03 ng/mL (0-0.5)
[2023-08-01 21:01] LABS: Erythrocyte Sedimentation Rate 21 mm/hr (0-15)
[2023-08-01] MEDS: hyDRALAzine 25 mg Tablet PO (21:55)
[2023-08-01 21:56] LABS: Glucose Point of Care 78 mg/dL (70-110)
[2023-08-01] MEDS: nitroglycerin drip 50 MG/250 ML PREMIX IV (22:05)
[2023-08-01] MEDS: heparin 5,000 unit/mL INJ 1 mL 5000 UNIT SUBCUT (22:38)
[2023-08-02] VITALS (118 sets, daily range): BP systolic 91–185; BP diastolic 41–87; PULSE 57–85; RESP 16–29; TEMP 36.8–37.4; O2SAT 88–98; BMI 26.6
[2023-08-02 00:01] LABS: Iron 31 ug/dL (37-145); Percent Saturation 9.5 % (20-50); Thyroid Stimulating Hormone 2.29 uIU/mL (0.27-4.20); Total Iron Binding Capacity 326 mcg/dl; Unsaturated Iron Binding 295 ug/dL (112-347)
[2023-08-02 00:11] LABS: Vitamin B12 370 pg/mL (232-1245)
[2023-08-02 01:19] LABS: Troponin 5 6HR 93.31 ng/L (0-10)
[2023-08-02 01:26] LABS: Troponin 5 6HR Delta 12.31 ng/L (0-12)
[2023-08-02 04:15] LABS: Basophils % 0.2 %; Hematocrit 31.7 % (36-47); Lymphocytes # 0.7 10^3/uL (0.8-4.8); Lymphocytes % 13.1 %; Mean Corpuscular HGB Conc 31.9 g/dL (30-55); Mean Corpuscular Hemoglobin 26.2 pg (27-33); Mean Corpuscular Volume 82.1 fl (85-98); Mean Platelet Volume 10.8 fL (7.4-10.4); Monocytes # 0.2 10^3/uL (0.2-0.9); Neutrophils # 4.17 10^3/uL (1.8-7.7); Neutrophils % 83.1 %; Nucleated Red Blood Cells % 0 %; Platelet Count 212 10^3/cmm (157-399); Red Blood Count 3.86 10^6/uL (3.85-5.65); Red Cell Distribution Width 14.6 % (12.1-15.1); White Blood Count 5.02 10^3/uL (3.29-11.43)
[2023-08-02] MEDS: cloNIDine 0.1 mg Tablet PO (04:20)
--- NOTE | 2023-08-02 04:28 | PC.NURSE ---
High BP: See MAR for titration of nitro drip. Despite titrating nitro up, BP remains high. Manual BP to confirm high BP. PRN Clonidine given. Pt reports 0/10 pain.
[2023-08-02 04:39] LABS: Chol HDL Ratio 3.15 mg/dL (0.0-4.40); Cholesterol 151 mg/dL (0-200); HDL Cholesterol 48 mg/dL (60-100); LDL Cholesterol Calculated 92 mg/dL (50-129); LDL HDL Ratio 1.92 RATIO (0.00-3.22); Triglycerides 53 mg/dL (0-150)
[2023-08-02 04:40] LABS: Procalcitonin 0.05 ng/mL (0-0.5)
[2023-08-02 04:45] LABS: Alanine Aminotransferase 30 U/L (0-33); Albumin Level 3.5 g/dL (3.5-5.2); Alkaline Phosphatase 109 U/L (35-105); Anion Gap 15.9 (5-19); Aspartate Amino Transferase 28 U/L (0-32); Blood Urea Nitrogen 18 mg/dL (8-23); Calcium 8.8 mg/dL (8.5-10.5); Carbon Dioxide 22 mmol/L (22-29); Chloride 105 mmol/L (98-107); Globulin 2.6 g/dL (1.3-4.6); Glucose 145 mg/dL (65-115); Magnesium 1.6 mg/dL (1.7-2.3); Osmolality Calculated 292 mOsm/kg (285-295); Phosphorus 3.7 mg/dL (2.5-4.5); Potassium 3.9 mmol/L (3.5-5.1); Sodium 139 mmol/L (136-145); Total Bilirubin 0.2 mg/dL (0.15-1.2); Total Protein 6.1 g/dL (6.6-8.7)
[2023-08-02 05:41] LABS: Folate Level > 20.0 ng/mL (4.8-37.3)
[2023-08-02] MEDS: enoxaparin 100 mg/mL Syringe 80 MG SUBCUT (05:59)
--- NOTE | 2023-08-02 06:00 | USCV_ITS ---
Olga Anna Age: 87 Gender: F : 1935 Exam Date: 08/02/2023 08:53 Ordering Phys: Mt Rubio MD Technologist: Esau Valdivia Exam Location: [facility] [place] Indication: chf BP: 136 / 56 HR: 71 Rhythm: Sinus Technical Quality: Adequate MEASUREMENTS (Male / Female) Normal Values 2D ECHO LVOT Diameter 1.8 cm LV Ejection Fraction MOD 2C 61.4 % LV Ejection Fraction 2C AL 61.8 % LA Diameter 4.2 cm LA Width 3.7 cm LA Height 4.9 cm RA Width 3.3 cm RA Height 4.3 cm Aorta at Sinotubular Diameter 2.0 cm IVC Diameter 1.6 cm M-MODE Aortic Annulus Diameter 2.8 cm LA Ao Ratio MM 1.5 MV E Point Septal Separation 0.7 cm DOPPLER AV Peak Velocity 193.7 cm/s LVOT Peak Velocity 126.0 cm/s AV Area Cont Eq vti 2.1 cm squared AV Area Cont Eq pk 1.7 cm squared MV Peak Velocity 192.0 cm/s MV Area PHT 1.8 cm squared Mitral E to A Ratio 0.7 MV E' Velocity 52.5 cm/s Mitral E to MV E' Ratio 16.3 Mitral E to LV E' Lateral Ratio 12.8 Mitral E to LV E' Septal Ratio 22.2 TR Peak Velocity 338.3 cm/s TR Peak Gradient 45.8 mmHg TR Mean Velocity 237.9 cm/s TR Mean Gradient 25.1 mmHg TR Velocity Time Integral 80.8 cm Right Atrial Pressure 3.0 mmHg Pulmonary Artery Systolic Pressu 48.8 mmHg PV Peak Velocity 179.7 cm/s RV Acceleration Time 0.1 s RV Ejection Time 0.3 s RV AcT/ET 0.3 FINDINGS Left Ventricle Left ventricle is normal size. LV systolic function is normal with EF of 55 to 60%. No regional wall motion abnormalities are seen. Grade 1 diastolic dysfunction Right Ventricle Normal in size and function Right Atrium Normal in size Left Atrium normal in size Mitral Valve Severe mitral annular calcification seen. Mild mitral stenosis with mean gradient of 5 mmHg. Mild mitral regurgitation. Aortic Valve Aortic valve is thickened. No significant stenosis seen. Tricuspid Valve Mild tricuspid regurgitation. RVSP is 45 to 50 mmHg. This is consistent with mild pulmonary hypertension. Pulmonic Valve Not well-visualized. Trace pulmonic regurgitation. Pericardium Normal Aorta Plaque noted in the ascending aorta IVC Appears to be normal CONCLUSIONS LV systolic function is normal with EF of 55 to 60%. Grade 1 diastolic dysfunction. Mild mitral stenosis. Mild mitral regurgitation Mild tricuspid regurgitation. Mild pulmonary hypertension Trace pulmonic regurgitation Compared to prior echocardiogram from 01/11/2022, no significant chagnes are seen Teodoro Mancini MD (Electronically Signed) Final Date: 02 August 2023 11:39 S
[2023-08-02 06:07] LABS: Glucose Point of Care 184 mg/dL (70-110)
[2023-08-02] MEDS: insulin glargine 100 units/1 mL 15 UNIT SUBCUT (06:07)
[2023-08-02] MEDS: losartan 50 mg Tablet 100 MG PO (06:12)
[2023-08-02] MEDS: ipratropium-albuterol 3 mL Neb INHALATION ×3 (07:40→20:21)
[2023-08-02] MEDS: budesonide 0.5 mg/2 mL Neb INHALATION ×2 (07:41→20:21)
[2023-08-02] MEDS: magnesium sulfate premix 1 GM/100 ML PIGGYBACK IV (08:33)
[2023-08-02] MEDS: hyDRALAzine 25 mg Tablet PO ×2 (08:34→15:52)
[2023-08-02] MEDS: FUROsemide 10 mg/mL SDV 4mL 40 MG IVP (08:34)
[2023-08-02] MEDS: pantoprazole DR 40 mg Tablet PO (08:34)
[2023-08-02] MEDS: clopidogrel 75 mg Tablet PO (08:34)
[2023-08-02] MEDS: ALPRAZolam 0.5 mg Tablet PO ×2 (08:34→17:37)
[2023-08-02] MEDS: aspirin 81 mg EC Tablet PO (08:34)
[2023-08-02] MEDS: insulin lispro 100 unit/1 mL SUBCUT ×3 (09:01→17:36)
--- NOTE | 2023-08-02 09:57 | PM.CONSULT ---
Providers/Reason For Consult Consulting Physician/Specialty*: Teodoro Mancini MD/ Cardiology Reason for Consult*: Chest pain/ Troponin elevation Requesting Physician: Dr Rubio Attending Physician: Mt Rubio MD Primary Care Provider: Dallas Lorenzana MD History of Present Illness History of Present Illness Olga Anna is a 87 year old female with past medical history of CAD status post CABG several years ago diabetes, hypertension who presented to hospital with not feeling well for 2 to 3 days. Was also experiencing cough for the same time. She was found to have COVID infection. She describes a bandlike pressure sensation in the epigastric region. Says has noticed it for the last 2 days history of feeling well. She does have dyspnea on exertion. She was found to have elevated troponin level of 81 which trended up to 93 at 6 hours.EKG shows normal sinus rhythm with non-specific ST T wave changes. ECHO shows normal LV systolic function Review of Systems General: Reports: 10 or more systems reviewed and unremarkable except in HPI and below Const: Denies: fever(s), chills, body aches, change in appetite, change in weight, malaise, night sweats, diaphoresis, change in sleep pattern, daytime sleepiness or snoring Eyes: Denies: change in vision, blurry vision, photophobia, eye discomfort or eye discharge ENMT: Denies: throat pain, enlarged tonsils, hoarseness, mouth pain, oral sores, dry mouth, tinnitus, nasal congestion or post nasal drip Card: Denies: chest pain, palpitations, irregular heart rhythm, edema, swelling of feet/ankles, lightheadedness, syncope, pre-syncope, dyspnea on exertion, orthopnea, leg pain with exertion or acrocyanosis Resp: Denies: dyspnea, productive cough, non-productive cough, wheezing, stridor, pain on inspiration, change in phlegm color, hemoptysis or chest congestion GI: Denies: abdominal pain, nausea, vomiting, hematemesis, coffee ground emesis, dysphagia, heartburn, diarrhea, constipation, bloating, GI cramping, change in bowel habits, pain on defecation, hematochezia or melena : Denies: flank pain, dysuria, urinary frequency, urinary urgency, urinary hesitancy, nocturia or hematuria Musc: Denies: neck pain, back pain, extremity pain, joint pain, joint swelling, joint redness, joint stiffness or limited range of motion Neuro: Denies: weakness in extremities Psych: Denies: anxiety, depression, mood swings, panic attacks, hopelessness or irritability Medications/Allergies Home Medications Medication Instructions Recorded Confirmed Last Taken Type clopidogrel 75 mg tablet (Plavix) 75 mg PO DAILY #30 tabs 10/03/22 08/02/23 08/01/23 Rx aspirin 81 mg tablet,delayed 81 mg PO DAILY 01/22/23 08/02/23 08/01/23 History release (Adult Low Dose Aspirin) losartan 100 mg tablet 100 mg PO QAM 03/03/23 08/02/23 08/01/23 History insulin glargine 100 unit/mL 15 unit (0.15 mL) SUBCUT QAM #10 mL 03/10/23 08/02/23 08/01/23 Rx subcutaneous solution (Lantus U-100 Insulin) furosemide 20 mg tablet 20 mg PO DAILY #90 tabs 03/18/23 08/02/23 08/01/23 Rx clonidine HCl 0.1 mg tablet 0.1 mg PO TID PRN hypertensive 05/08/23 08/02/23 Unknown Rx emergency #30 tabs blood-glucose meter (Accu-Chek #1 ea 05/14/23 08/02/23 Unknown Rx Guide Glucose Meter) lactulose 10 gram/15 mL oral 10 g (15 mL) PO BID PRN 05/14/23 08/02/23 Unknown Rx solution Constipation #473 mL omeprazole 40 mg capsule,delayed 40 mg PO DAILY #90 caps 06/15/23 08/02/23 08/01/23 Rx release pen needle, diabetic 32 gauge x #50 ea 06/15/23 08/02/23 Unknown Rx 5/32 insulin aspar prot-insulin aspart See Rx Instructions SUBCUT BID #15 06/18/23 08/02/23 08/01/23 Rx 100 unit/mL (70-30) subcutaneous mL pen (Novolog Mix 70-30FlexPen U-100) alprazolam 0.5 mg tablet 0.5 mg PO BID #60 tabs 07/30/23 08/02/23 08/01/23 Rx blood sugar diagnostic (True #100 ea 07/30/23 08/02/23 Unknown Rx Metrix Glucose Test Strip) Allergies Allergy/AdvReac Type Severity Reaction Status Date / Time ezetimibe [From Zetia] Allergy muscle pain Verified 05/28/23 15:36 Xuedsno-EFU-AbC Reductase Allergy muscle pain Verified 05/28/23 15:36 Inhibitor [Mmoxdib-Bmu-Owg Reductase Inhibitor] carvedilol [From Coreg] AdvReac Intermediate dizziness Verified 05/28/23 15:36 Lexapro Allergy Unknown hyponatremi Uncoded 05/28/23 15:36 a Current Medications Generic Name Dose Route Start Last Admin Trade Name Freq PRN Reason Stop Dose Admin Albuterol/Ipratropium 3 ml 08/02/23 02:00 08/02/23 07:40 Ipratropium-Albuterol 3 Ml Neb INHALATION 3 ml Q6H.RESP RAINA Administration Alprazolam 0.5 mg 08/02/23 09:00 08/02/23 08:34 Alprazolam 0.5 Mg Tablet PO 0.5 mg BID RAINA Administration Aspirin 81 mg 08/02/23 09:00 08/02/23 08:34 Aspirin 81 Mg Ec Tablet PO 81 mg DAILY RAINA Administration Budesonide 0.5 mg 08/02/23 08:00 08/02/23 07:41 Budesonide 0.5 Mg/2 Ml Neb INHALATION 0.5 mg BID.RESPIRATORY RAINA Administration Clonidine HCl 0.1 mg 08/01/23 21:45 08/02/23 04:20 Clonidine 0.1 Mg Tablet PO 0.1 mg TID PRN Administration hypertensive emergency Clopidogrel Bisulfate 75 mg 08/02/23 09:00 08/02/23 08:34 Clopidogrel 75 Mg Tablet PO 75 mg DAILY RAINA Administration Dexamethasone 6 mg 08/01/23 20:15 08/01/23 20:37 Dexamethasone 10 Mg/Ml Inj IVP 6 mg Q24H RAINA Administration Furosemide 40 mg 08/02/23 08:15 08/02/23 08:34 Furosemide 10 Mg/Ml Sdv 4ml IVP 40 mg Q24H RAINA Administration Nitroglycerin/Dextrose 50 mg in 250 mls @ 0 mls/hr 08/01/23 20:15 08/02/23 06:03 Nitroglycerin Drip IV 45 mcg/min .Q0M RAINA 13.5 mls/hr Titration Protocol Per Protocol Insulin Glargine 15 unit 08/02/23 06:00 08/02/23 06:07 Insulin Glargine 100 Units/1 Ml SUBCUT 15 unit QAM RAINA Administration Insulin Human Lispro 0 unit 08/01/23 21:45 08/02/23 09:01 Insulin Lispro 100 Unit/1 Ml SUBCUT 1 unit WM&BEDTIME RAINA Administration Protocol Losartan Potassium 100 mg 08/02/23 06:00 08/02/23 06:12 Losartan 50 Mg Tablet PO 100 mg QAM RAINA Administration Pantoprazole Sodium 40 mg 08/02/23 09:00 08/02/23 08:[address] 40 Mg Tablet PO 40 mg DAILY RAINA Administration PFSH Acute PFSH: Medical History 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 CVA (cerebral vascular accident) Lacunar infarct Subclavian arterial stenosis Atherosclerotic heart disease of [place] coronary artery without angina pectoris Hyponatremia CAD (coronary artery disease) HTN (hypertension), benign Hyperlipidemia Bilateral carotid artery stenosis Peripheral vascular disease Chronic constipation Diabetes Surgical History History of colonoscopy Hx of CABG H/O: hysterectomy H/O tubal ligation History of knee surgery Family History Daughter Cancer Family/Other Cancer Lung disease Diabetes Grandmother Cancer Mother Dementia Stroke Brother Diabetes Denies family history of CAD (coronary artery disease) Clotting disorder Chronic kidney disease (CKD) Suicide Anesthesia complication Bleeding disorder Social History Smoking and tobacco/nicotine status: never used tobacco/nicotine Alcohol intake: never Substance/Drug Use: never Lives independently: Yes Vitals/I&O/Wt Last Vital Signs Temp 98.6 F 08/02/23 04:00 Pulse 69 08/02/23 09:00 Resp 20 H 08/02/23 07:41 BP 113/61 08/02/23 09:00 Pulse Ox 91 08/02/23 09:00 O2 Del Method Room Air 08/02/23 07:41 O2 Flow Rate 2 08/01/23 20:38 08/01/23 08/02/23 08/02/23 22:59 06:59 14:59 Intake Total 1169.025 / 1169.025 453.400 / 1622.425 Output Total 1000 / 1000 1375 / 2375 Balance 169.025 / 169.025 -921.600 / -752.575 Weight last 48 hrs Weight 167 lb 3.2 oz Weight 172 lb 11.2 oz Weight 180 lb Physical Exam Narrative: GENERAL: Patient is alert, awake and oriented x3. [] NECK: No jugular vein distension. [] HEENT: No cyanosis. No icterus. No pallor. [] HEART: Regular S1 and S2. Grade 2/6 systolic murmur LUNGS: Clear to auscultate bilaterally. [] CENTRAL NERVOUS SYSTEM: Grossly nonfocal. [] EXTREMITIES: Lower extremities with 1+ edema bilaterally. Urinary Catheter Management: Rivera: Cath Placed During This Visit: yes Reason for Continuing Indwelling Catheter: Accurate Measurement of Urinary Output in Critically Ill Patients Urinary Catheter Date of Insertion: 08/01/23 Urinary Catheter Time of Insertion: 20:39 Data 08/03/23 03:47 08/03/23 03:47 Micro: Microbiology 08/01/23 20:09 Legionella Urinary Antigen - Final Unknown Source A&P Assessment and plan (1) CAD (coronary artery disease): Qualifiers: Coronary Disease-Associated Artery/Lesion type: [place] artery [place] vs. transplanted heart: [place] heart Associated angina: without angina Qualified Code(s): I25.10 - Atherosclerotic heart disease of [place] coronary artery without angina pectoris (2) HTN (hypertension), benign: (3) Elevated troponin: (4) CHF (congestive heart failure): (5) Uncontrolled hypertension: (6) Chest pain: Plan Patient experienced bandlike sensation around epigastric region. Symptoms are atypical. However she does have significant CAD history. Troponins were elevated but did not trend up significantly. This was in the setting of elevated blood pressure. It could be type II NSTEMI versus type 1. Continue medical therapy for non-ST elevation LA. ECHO shows normal LV systolic function I discussed different options for treatment including medical therapy and doing stress test later once COVID infection resolves versus proceeding with coronary angiography. Shared decision made to continue forward medical therapy for today. If has further chest pain or epigastric discomfort episodes with controlled blood pressure, we will proceed with coronary angiogram. Otherwise we will plan on stress test later. Continue anticoagulation Thank you for involving us with care of this patient. We will continue to follow. Please call with questions. Consult Attestations Medical Necessity Statement: Care expected to cross 2 midnights. Coding Level of Care Code Acute Code for [facility]wd Diagnoses Coronary artery disease involving [place] coronary artery of [place] heart without angina pectoris I25.10 Coronary Disease-Associated Artery/Lesion type: [place] artery [place] vs. transplanted heart: [place] heart Associated angina: without angina HTN (hypertension), benign I10 Elevated troponin R79.89 CHF (congestive heart failure) I50.9 Uncontrolled hypertension I10 Chest pain R07.9
--- NOTE | 2023-08-02 09:58 | PC.PHAR ---
CONFIRMED MEDICATIONS WITH FAMILY 08/02/23 BY PHONE.
[2023-08-02 11:51] LABS: Glucose Point of Care 196 mg/dL (70-110)
[2023-08-02 12:27] LABS: Glucose Point of Care 220 mg/dL (70-110)
--- NOTE | 2023-08-02 14:32 | P.PN_ITS ---
Subjective 2 Subjective: Today morning patient seen sitting in ICU with family at bedside. Patient states he is feeling a lot better. Overnight nitro drip was started. Nitropaste still present. Blood pressure is better controlled. Patient denies any nausea, ting, headache. Denies any further chest pain or chest heaviness. Has remained hemodynamically stable and afebrile otherwise. Tmax admission 101 Fahrenheit. Vitals/I&O/Wt Last Vital Signs Temp 98.6 F 08/02/23 04:00 Pulse 78 08/02/23 14:10 Resp 20 H 08/02/23 13:20 BP 125/46 08/02/23 14:10 Pulse Ox 95 08/02/23 14:10 O2 Del Method Room Air 08/02/23 13:20 O2 Flow Rate 2 08/01/23 20:38 08/01/23 08/02/23 08/02/23 22:59 06:59 14:59 Intake Total 1169.025 / 1169.025 453.400 / 1622.425 820 / 820 Output Total 1000 / 1000 1375 / 2375 Balance 169.025 / 169.025 -921.600 / -752.575 820 / 820 Weight last 48 hrs Weight 75.841 kg Weight 78.335 kg Weight 81.647 kg Physical Exam 2 Narrative: General: No acute distress, AO x3 HEENT: PERRLA, pupils bilaterally equal and reactive, old bruising present over left cheek under the eye, no black eye or raccoon sign Chest: Normal vesicular breath sounds, bilateral occasional rhonchi present , equal good air entry bilaterally CVS: S1-S2 regular, no murmurs, no tachycardia, no gallops, no rubs Abdomen: Soft, nontender, no organomegaly, bowel sounds present Neuro: No focal deficits, no facial deformity, AO x3, power 5/5 in all limbs Urinary Catheter Management: Rivera: Cath Placed During This Visit: yes Reason for Continuing Indwelling Catheter: Accurate Measurement of Urinary Output in Critically Ill Patients Urinary Catheter Date of Insertion: 08/01/23 Urinary Catheter Time of Insertion: 20:39 Data 08/02/23 03:37 08/02/23 03:37 Micro: Microbiology 08/02/23 08:00 Gram Stain - Final Sputum - Expectorated Sputum 08/01/23 20:09 Bacterial Antigens - Final Urine Kidney 08/01/23 20:09 Legionella Urinary Antigen - Final Unknown Source A&P Assessment and plan (1) Shortness of breath: (2) Uncontrolled hypertension: (3) CHF (congestive heart failure): (4) COVID: (5) CAD (coronary artery disease): Qualifiers: Coronary Disease-Associated Artery/Lesion type: [place] artery [place] vs. transplanted heart: [place] heart Associated angina: without angina Qualified Code(s): I25.10 - Atherosclerotic heart disease of [place] coronary artery without angina pectoris Plan Uncontrolled hypertension: Goal blood pressure less than 140/90 mmHg. Blood pressure is better controlled. Wean off nitro drip. Remove Nitropaste. For now continue with home dose of losartan, change hydralazine to 50 mg 3 times a day. If needed will add amlodipine 10 mg oral daily. Shortness of breath: Most likely in setting of diastolic congestive heart failure due to uncontrolled hypertension along with COVID-19. Already received IV Lasix in the ER. Rivera catheterization. Strict improper charting, daily weights. Fluid restriction below 1500 cc. Lasix 40 mg IV daily. Elevated troponin: Cannot rule out non-ST elevation PR. Family does give history of unstable angina with chest pain and back pain ongoing especially with exertion for last few months. Given uncontrolled hypertension on admission cannot rule out demand ischemia. Continue with aspirin, Plavix. Patient allergic to statins. Echocardiogram results appreciated for no regional wall motion normality and normal EF. Continue with Lovenox 1 mg/kg body weight every 12 hourly for now. Will consult cardiology for further recommendations. Appreciate recent A1c of 6.9, lipid panel today. COVID-19 pneumonia: Mild disease. Patient currently on room air. Oxygen supplementation keeping saturation over 88%. Dexamethasone 6 mg daily. DuoNeb every 6 hour, budesonide twice daily Pulmonary toilet with incentive spirometry flutter valve. We will monitor inflammatory markers including CRP every 48 hours. D-dimer negative for age. Appreciate CT chest results. No concerns for PE for now. Patient on full dose anticoagulation with concerns for non-ST elevation PR for now. Sputum culture pending, procalcitonin negative, urine Legionella, bacterial antigen negative. Low concern for bacterial pneumonia for now. Hold off on antibiotics for now. CAD: Post CABG. Does give history of unstable angina for last few months. Troponin cycled elevated. Treatment as above. Type 2 diabetes mellitus: Appreciate recent A1c. Continue with home dose of glargine. Insulin sliding scale at low-dose protocol. CODE STATUS: Patient's son and daughter will be the DPOA. Full code. Cardiac carb consistent diet. Heparin 5000 every 12 hourly for DVT prophylaxis Protonix for PUD prophylaxis. Attestations 2 Medical Necessity Statement*: Requires further hospitalization for management of uncontrolled hypertension leading to shortness of breath from congestive diastolic heart failure, elevated troponins with concerns for non-ST elevation PR, COVID-19 Critical Care Time: The high probability of a clinically significant, sudden or life threatening deterioration of the patient's [ cardiology, pulmonology, ID, high risk medication] system(s) required my full and direct attention, intervention and personal management. The critical care time is as shown. This time is in addition to time spent performing any reported procedures but includes the following: [x] Data and vital sign review and interpretation [x] Patient assessment, examination and intervention [x] Documentation [x] Medication orders and management Coding Level of Care Code Critical Care >/= 30 minutes Critical care time (in minutes): 60 The high probability of a clinically significant, sudden or life threatening deterioration, as referenced in this documentation, required my full and direct attention, intervention and personal management. The critical care time shown is in addition to time spent performing any reported separately billable procedures and includes the following: [x] Data and vital sign review and interpretation [x ] Patient assessment, examination and intervention [x] Medication orders and management [x] Patient/Family updates as able [x] Care Coordination and Documentation. Other Coding Information This patient has a high probability of clinically significant, sudden or life threatening deterioration of the patient's (neurological/pulmonary/cardiac/renal/ID/endocrine) systems required my full, direct attention, the highest level of physician preparedness for urgent intervention and personal management. I managed/supervised life or organ supporting interventions that required frequent physician assessment. I devoted my full attention in the ICU to the direct care of this patient for the period of time indicated above. Time I spent with family or surrogate(s) is included only if the patient was incapable of providing necessary information or participating in decision making. This time includes the following services provided: Telemetry review Hemodynamic interpretation, assessment and management Review and interpretation of CXR Review and interpretation of lab values Review and interpretation of microbiologic data and culture results Review of medications and administration Review and interpretation of Nutrition requirements and management Discussion of management with other consultants and services Clinical update to family members Diagnoses Shortness of breath R06.02 Uncontrolled hypertension I10 CHF (congestive heart failure) I50.9 COVID U07.1 Coronary artery disease involving [place] coronary artery of [place] heart without angina pectoris I25.10 Coronary Disease-Associated Artery/Lesion type: [place] artery [place] vs. transplanted heart: [place] heart Associated angina: without angina
[2023-08-02] MEDS: enoxaparin 80 mg/0.8 mL Syringe SUBCUT (15:52)
[2023-08-02 17:26] LABS: Glucose Point of Care 332 mg/dL (70-110)
[2023-08-02] MEDS: hyDRALAzine 20 mg/mL INJ 1 mL 10 MG IVP (18:13)
[2023-08-02] MEDS: dexamethasone 10 mg/mL INJ 6 MG IVP (20:11)
[2023-08-02 21:52] LABS: Glucose Point of Care 93 mg/dL (70-110)
[2023-08-02] MEDS: hyDRALAzine 50 mg Tablet PO (21:53)
[2023-08-03] VITALS (27 sets, daily range): BP systolic 105–194; BP diastolic 46–88; PULSE 67–84; RESP 14–24; TEMP 37–37.1; O2SAT 91–99; BMI 28.4
[2023-08-03] MEDS: enoxaparin 80 mg/0.8 mL Syringe SUBCUT ×2 (03:43→15:53)
[2023-08-03 04:17] LABS: Basophils % 0.2 %; Lymphocytes # 0.7 10^3/uL (0.8-4.8); Lymphocytes % 15.8 %; Mean Corpuscular HGB Conc 31.9 g/dL (30-55); Mean Corpuscular Volume 81.4 fl (85-98); Mean Platelet Volume 10.8 fL (7.4-10.4); Monocytes # 0.2 10^3/uL (0.2-0.9); Monocytes % 5.1 %; Neutrophils # 3.67 10^3/uL (1.8-7.7); Neutrophils % 78.5 %; Nucleated Red Blood Cells % 0 %; Platelet Count 229 10^3/cmm (157-399); Red Blood Count 3.81 10^6/uL (3.85-5.65); Red Cell Distribution Width 14.7 % (12.1-15.1); White Blood Count 4.68 10^3/uL (3.29-11.43)
[2023-08-03 04:35] LABS: C Reactive Protein 7.4 mg/L (0.0-4.9)
[2023-08-03 04:39] LABS: Alanine Aminotransferase 23 U/L (0-33); Albumin Level 3.2 g/dL (3.5-5.2); Alkaline Phosphatase 101 U/L (35-105); Anion Gap 15.6 (5-19); Aspartate Amino Transferase 22 U/L (0-32); Blood Urea Nitrogen 31 mg/dL (8-23); Calcium 8.8 mg/dL (8.5-10.5); Carbon Dioxide 22 mmol/L (22-29); Chloride 101 mmol/L (98-107); Glucose 208 mg/dL (65-115); Osmolality Calculated 291 mOsm/kg (285-295); Potassium 4.6 mmol/L (3.5-5.1); Sodium 134 mmol/L (136-145); Total Bilirubin 0.2 mg/dL (0.15-1.2); Total Protein 6.2 g/dL (6.6-8.7)
[2023-08-03 04:41] LABS: Troponin T (5th) Once 144 ng/L (0-10)
[2023-08-03] MEDS: losartan 50 mg Tablet 100 MG PO (05:05)
[2023-08-03] MEDS: insulin glargine 100 units/1 mL 15 UNIT SUBCUT (06:05)
[2023-08-03] MEDS: hyDRALAzine 20 mg/mL INJ 1 mL 10 MG IVP (06:06)
[2023-08-03 06:13] LABS: Glucose Point of Care 241 mg/dL (70-110)
[2023-08-03] MEDS: ipratropium-albuterol 3 mL Neb INHALATION ×3 (08:06→22:18)
[2023-08-03] MEDS: budesonide 0.5 mg/2 mL Neb INHALATION ×2 (08:06→22:19)
[2023-08-03 08:11] LABS: Glucose Point of Care 280 mg/dL (70-110)
[2023-08-03] MEDS: pantoprazole DR 40 mg Tablet PO (08:15)
[2023-08-03] MEDS: clopidogrel 75 mg Tablet PO (08:15)
[2023-08-03] MEDS: ALPRAZolam 0.5 mg Tablet PO ×2 (08:15→18:30)
[2023-08-03] MEDS: hyDRALAzine 50 mg Tablet PO ×3 (08:15→21:44)
[2023-08-03] MEDS: FUROsemide 10 mg/mL SDV 4mL 40 MG IVP (08:16)
[2023-08-03] MEDS: aspirin 81 mg EC Tablet PO (08:16)
[2023-08-03] MEDS: insulin lispro 100 unit/1 mL SUBCUT ×4 (08:34→21:44)
--- NOTE | 2023-08-03 09:07 | P.PN_ITS ---
Subjective 2 Subjective: Patient had significant discomfort with epigastric region this morning. Feels like pressure. Her troponin went up to 146. Vitals/I&O/Wt Last Vital Signs Temp 98.3 F 08/02/23 22:30 Pulse 81 08/03/23 08:22 Resp 16 08/03/23 08:06 BP 165/65 08/03/23 08:00 Pulse Ox 97 08/03/23 08:06 O2 Del Method Room Air 08/03/23 08:06 O2 Flow Rate 2 08/01/23 20:38 08/02/23 08/03/23 08/03/23 22:59 06:59 14:59 Intake Total 300 / 1217.2 360 / 1577.2 Output Total 550 / 550 1000 / 1550 Balance -250 / 667.2 -640 / 27.2 Weight last 48 hrs Weight 169 lb 6.4 oz Weight 165 lb 5 oz Weight 167 lb 3.2 oz Weight 172 lb 11.2 oz Weight 180 lb Physical Exam 2 Narrative: GENERAL: Patient is alert, awake and oriented x3. [] NECK: No jugular vein distension. [] HEENT: No cyanosis. No icterus. No pallor. [] HEART: Regular S1 and S2. Grade 2/6 systolic murmur LUNGS: Clear to auscultate bilaterally. [] CENTRAL NERVOUS SYSTEM: Grossly nonfocal. [] EXTREMITIES: Lower extremities with 1+ edema bilaterally. Urinary Catheter Management: Rivera: Cath Placed During This Visit: yes Reason for Continuing Indwelling Catheter: Accurate Measurement of Urinary Output in Critically Ill Patients Urinary Catheter Date of Insertion: 08/01/23 Urinary Catheter Time of Insertion: 20:39 Data 08/04/23 04:40 08/04/23 04:40 Micro: Microbiology 08/01/23 18:09 Urine Culture - Final Urine,Clean Catch 08/02/23 08:00 Gram Stain - Final Sputum - Expectorated Sputum 08/01/23 20:09 Bacterial Antigens - Final Urine Kidney 08/01/23 20:09 Legionella Urinary Antigen - Final Unknown Source A&P Assessment and plan (1) CAD (coronary artery disease): Qualifiers: Coronary Disease-Associated Artery/Lesion type: [place] artery [place] vs. transplanted heart: [place] heart Associated angina: without angina Qualified Code(s): I25.10 - Atherosclerotic heart disease of [place] coronary artery without angina pectoris (2) HTN (hypertension), benign: (3) Elevated troponin: (4) CHF (congestive heart failure): (5) Uncontrolled hypertension: (6) Chest pain: Plan Patient continues having worsening discomfort in the epigastric region. Troponins did go up to 146. After detailed discussion with patient, decision made to proceed with coronary angiography with possible percutaneous coronary intervention. Risks and benefits discussed. Continue dual antiplatelet therapy. Continue anticoagulation N.p.o. past midnight Thank you for involving us with care of this patient. We will continue to follow. Please call with questions. Attestations 2 Medical Necessity Statement*: Care expected to cross 2 midnights. Coding Level of Care Code Acute Code for [facility] Diagnoses Coronary artery disease involving [place] coronary artery of [place] heart without angina pectoris I25.10 Coronary Disease-Associated Artery/Lesion type: [place] artery [place] vs. transplanted heart: [place] heart Associated angina: without angina HTN (hypertension), benign I10 Elevated troponin R79.89 CHF (congestive heart failure) I50.9 Uncontrolled hypertension I10 Chest pain R07.9
[2023-08-03 12:12] LABS: Glucose Point of Care 356 mg/dL (70-110)
--- NOTE | 2023-08-03 15:22 | PM.PN ---
Subjective Subjective: No acute events overnight. Patient did have elevated blood pressure today morning associated with some chest heaviness more so in the epigastric area. Patient is complaining of feeling weak and some cough today. Remains hemodynamically stable and afebrile. On room air. Family at bedside. Vitals/I&O/Wt Last Vital Signs Temp 98.8 F 08/03/23 09:00 Pulse 81 08/03/23 14:00 Resp 24 H 08/03/23 14:00 BP 165/68 08/03/23 14:00 Pulse Ox 97 08/03/23 14:00 O2 Del Method Room Air 08/03/23 09:00 O2 Flow Rate 2 08/01/23 20:38 08/03/23 08/03/23 08/03/23 06:59 14:59 22:59 Intake Total 360 / 1577.2 840 / 840 Output Total 1000 / 1550 Balance -640 / 27.2 840 / 840 Weight last 48 hrs Weight 79.946 kg Weight 76.839 kg Weight 74.984 kg Weight 75.841 kg Weight 78.335 kg Weight 81.647 kg Physical Exam Narrative: General: No acute distress, AO x3 HEENT: PERRLA, pupils bilaterally equal and reactive, old bruising present over left cheek under the eye, no black eye or raccoon sign Chest: Normal vesicular breath sounds, bilateral occasional rhonchi present , equal good air entry bilaterally CVS: S1-S2 regular, no murmurs, no tachycardia, no gallops, no rubs Abdomen: Soft, nontender, no organomegaly, bowel sounds present Neuro: No focal deficits, no facial deformity, AO x3, power 5/5 in all limbs Urinary Catheter Management: Rivera: Cath Placed During This Visit: yes Reason for Continuing Indwelling Catheter: Accurate Measurement of Urinary Output in Critically Ill Patients Urinary Catheter Date of Insertion: 08/01/23 Urinary Catheter Time of Insertion: 20:39 Data 08/03/23 03:47 08/03/23 03:47 Micro: Microbiology 08/02/23 08:00 Gram Stain - Final Sputum - Expectorated Sputum Sputum Culture - Preliminary 08/01/23 18:09 Urine Culture - Final Urine,Clean Catch 08/01/23 20:09 Bacterial Antigens - Final Urine Kidney A&P Assessment and plan (1) Shortness of breath: (2) Uncontrolled hypertension: (3) CHF (congestive heart failure): (4) COVID: (5) CAD (coronary artery disease): Qualifiers: Coronary Disease-Associated Artery/Lesion type: [place] artery [place] vs. transplanted heart: [place] heart Associated angina: without angina Qualified Code(s): I25.10 - Atherosclerotic heart disease of [place] coronary artery without angina pectoris Plan Uncontrolled hypertension: Goal blood pressure less than 140/90 mmHg. Blood pressure is better controlled. Wean off nitro drip. Remove Nitropaste. For now continue with home dose of losartan, change hydralazine to 50 mg 3 times a day. If needed will add amlodipine 10 mg oral daily. Shortness of breath: Most likely in setting of diastolic congestive heart failure due to uncontrolled hypertension along with COVID-19. Already received IV Lasix in the ER. Rivera catheterization. Strict improper charting, daily weights. Fluid restriction below 1500 cc. Lasix 40 mg IV daily. Elevated troponin: Cannot rule out non-ST elevation AK. Family does give history of unstable angina with chest pain and back pain ongoing especially with exertion for last few months. Given uncontrolled hypertension on admission cannot rule out demand ischemia. Continue with aspirin, Plavix. Patient allergic to statins. Echocardiogram results appreciated for no regional wall motion normality and normal EF. Continue with Lovenox 1 mg/kg body weight every 12 hourly for now. Will consult cardiology for further recommendations. Appreciate recent A1c of 6.9, lipid panel today. COVID-19 pneumonia: Mild disease. Patient currently on room air. Oxygen supplementation keeping saturation over 88%. Dexamethasone 6 mg daily. DuoNeb every 6 hour, budesonide twice daily Pulmonary toilet with incentive spirometry flutter valve. We will monitor inflammatory markers including CRP every 48 hours. D-dimer negative for age. Appreciate CT chest results. No concerns for PE for now. Patient on full dose anticoagulation with concerns for non-ST elevation AK for now. Sputum culture pending, procalcitonin negative, urine Legionella, bacterial antigen negative. Low concern for bacterial pneumonia for now. Hold off on antibiotics for now. CAD: Post CABG. Does give history of unstable angina for last few months. Troponin cycled elevated. Treatment as above. Type 2 diabetes mellitus: Appreciate recent A1c. Continue with home dose of glargine. Insulin sliding scale at low-dose protocol. CODE STATUS: Patient's son and daughter will be the DPOA. Full code. Cardiac carb consistent diet. Heparin 5000 every 12 hourly for DVT prophylaxis Protonix for PUD prophylaxis. Plan for the day: Continue with losartan and hydralazine 50 mg 3 times a day. Goal blood pressure less than 140/90 MAG. If needed will add low-dose amlodipine. IV hydralazine 10 mg every 6 hours as needed for systolic of more than 160 mmHg. Continue with IV dexamethasone for COVID-19. Patient remains on room air. Add Tessalon Perles 200 mg 3 times a day. For possible non-ST elevation AK. Repeat troponins today morning up to 144. Discussed in detail with cardiology. Given some ongoing chest discomfort with elevated troponins we will plan for cardiac angiogram in AM. N.p.o. after midnight. Continue full dose Lovenox. Continue with aspirin, Plavix. Transfer to [facility] floor. Can start on gentle IV hydration with normal saline 50 cc/h for 500 cc. Repeat labs in AM. Blood sugars elevated. Will increase the dose of Lantus to 20 units daily. Attestations Medical Necessity Statement*: Requires further hospitalization for management of uncontrolled hypertension leading to congestive heart failure, non-ST elevation AK in a patient with COVID-19 requiring cardiac angiogram Diagnoses Shortness of breath R06.02 Uncontrolled hypertension I10 CHF (congestive heart failure) I50.9 COVID U07.1 Coronary artery disease involving [place] coronary artery of [place] heart without angina pectoris I25.10 Coronary Disease-Associated Artery/Lesion type: [place] artery [place] vs. transplanted heart: [place] heart Associated angina: without angina
[2023-08-03] MEDS: sodium chloride 0.9% 500 ML 50 ML IV (16:03)
[2023-08-03] MEDS: insulin glargine 100 units/1 mL 10 UNIT SUBCUT (16:45)
--- NOTE | 2023-08-03 16:55 | PC.NURSE ---
Transfer Note Patient transferred to CSU from ICU via wheelchair. Handoff report given to MYCHAL Castañeda. Patient oriented to environment and equipment. Covering service notified. Orders reviewed and will continue to monitor. Family notified. All belongings transferred with patient and placed at bedside. Upon transfer patient is alert/oriented x4 on room air.
[2023-08-03 17:55] LABS: Glucose Point of Care 229 mg/dL (70-110)
[2023-08-03 21:42] LABS: Glucose Point of Care 145 mg/dL (70-110)
[2023-08-03] MEDS: dexamethasone 10 mg/mL INJ 6 MG IVP (21:44)
[2023-08-04] VITALS (18 sets, daily range): BP systolic 79–213; BP diastolic 53–84; PULSE 69–85; RESP 14–26; TEMP 36.7–37.3; O2SAT 90–98; BMI 27.3
[2023-08-04] MEDS: enoxaparin 80 mg/0.8 mL Syringe SUBCUT (02:07)
[2023-08-04 05:04] LABS: Basophils % 0.3 %; Hematocrit 30.3 % (36-47); Lymphocytes # 0.6 10^3/uL (0.8-4.8); Lymphocytes % 18.3 %; Mean Corpuscular HGB Conc 32.3 g/dL (30-55); Mean Corpuscular Hemoglobin 26.3 pg (27-33); Mean Corpuscular Volume 81.5 fl (85-98); Mean Platelet Volume 10.7 fL (7.4-10.4); Monocytes # 0.2 10^3/uL (0.2-0.9); Monocytes % 5.1 %; Neutrophils # 2.54 10^3/uL (1.8-7.7); Nucleated Red Blood Cells % 0 %; Platelet Count 231 10^3/cmm (157-399); Red Blood Count 3.72 10^6/uL (3.85-5.65); Red Cell Distribution Width 14.7 % (12.1-15.1); White Blood Count 3.34 10^3/uL (3.29-11.43)
[2023-08-04 05:24] LABS: Alanine Aminotransferase 19 U/L (0-33); Albumin Level 3.1 g/dL (3.5-5.2); Alkaline Phosphatase 91 U/L (35-105); Anion Gap 15.6 (5-19); Aspartate Amino Transferase 19 U/L (0-32); Blood Urea Nitrogen 35 mg/dL (8-23); Calcium 8.3 mg/dL (8.5-10.5); Carbon Dioxide 21 mmol/L (22-29); Chloride 102 mmol/L (98-107); Globulin 2.7 g/dL (1.3-4.6); Glucose 240 mg/dL (65-115); Osmolality Calculated 294 mOsm/kg (285-295); Potassium 4.6 mmol/L (3.5-5.1); Sodium 134 mmol/L (136-145); Total Bilirubin 0.2 mg/dL (0.15-1.2); Total Protein 5.8 g/dL (6.6-8.7)
[2023-08-04] MEDS: hyDRALAzine 20 mg/mL INJ 1 mL 10 MG IVP (06:05)
[2023-08-04] MEDS: losartan 50 mg Tablet 100 MG PO (06:05)
[2023-08-04 07:34] LABS: Glucose Point of Care 276 mg/dL (70-110)
[2023-08-04] MEDS: diphenhydrAMINE 50 mg Capsule PO (08:00)
[2023-08-04] MEDS: sodium chloride 0.9% 1,000 ML 50 ML IV (08:03)
--- NOTE | 2023-08-04 08:15 | XACV_ITS ---
Exam Room: 2 Ht: 168 cm Wt: 80 kg BSA: 1.95 m2 Gender: Female : 1935 Any Known Allergies: Other Exam Priority: Routine Procedure(s): Procedure Description: Diagnostic procedure Procedure Description: PCI procedure Procedure Description: Drug Eluting Coronary Stent Procedure Description: PTCA Procedure Description: Miscellaneous Procedure Description: Angio-Seal Procedure Description: Coronary Angiography Diagnostic Cath Status: Elective Diagnostic Findings * Left Main has no significant disease. * Right Coronary Artery has mild luminal irregularities. * Bypass Grafts: VOGT to LAD is patent. SVG to OM is known occluded.. * Proximal Left Anterior Descending to Mid Left Anterior Descending: total occlusion, LIZANDRO: 0 flow. * Mid Circumflex: obstructive 70% stenosis, LIZANDRO: 3 flow. * Second Obtuse Marginal Branch Segment: severe 90% stenosis, LIZANDRO: 3 flow. * Coronary angiography shows right dominance. PCI Status: Elective PCI Indication: NSTE - ACS Interventional Findings * PROCEDURE DETAIL: We engaged left main artery with XB 3.5 guide catheter. Anticoagulation was maintained throughout the procedure. 0.014 run-through guidewire was used to cross the circumflex and OM stenosis and was put in distal vessel. Given small to medium size of OM branch, we decided to only pursue balloon angioplasty of critical stenosis. 2.25 x 15 mm semicompliant balloon was used to perform balloon angioplasty of OM 2. This expanded the lesion very well with no significant residual stenosis. We then performed balloon angioplasty of mid left circumflex artery stenosis with 2.25 x 15 mm balloon. This was followed by placement of 2.5 x 15 mm resolute Letty drug-eluting stent. At this time final angiogram was performed that showed excellent stent expansion, no residual stenosis and LIZANDRO-3 flow. Guidewire and guide catheter were removed. Patient left the Mortgage Loan Specialist in a stable condition.. * Mid Circumflex: 70% stenosis treated with a AB TREK 2.25X15 RX BALLOON, and MDT R LETTY 2.5X15 MELCHOR. 0% residual stenosis, LIZANDRO: 3 flow. * Second Obtuse Marginal Branch Segment: 90% stenosis treated with a AB TREK 2.25X15 RX BALLOON. 0% residual stenosis, LIZANDRO: 3 flow. Conclusions 1. Severe stenosis of OM 2. 2 s/p successful revascularization with balloon angioplasty. Severe stenosis of mid left circumflex artery s/p successful revascularization with 1 stent.. 3. Patient has prior CABG. 4. Mid Circumflex was treated with a Balloon, and Drug Eluting Stent. 5. Second Obtuse Marginal Branch Segment was treated with a Balloon. Recommendations * Dual anti-platelet therapy with aspirin and plavix for at least 1 year. * High intensity statin therapy. * Outpatient cardiology follow up in 4 weeks. Interventional RX Recommendation: PCI w/o planned CABG Diagnostic RX Recommendation: PCI w/o planned CABG Pressures Phase:Rest AO : 132 / 66 ( 97 ) @ 9:13:00 AM 190 / 68 ( 119 ) @ 9:26:00 AM 145 / 69 ( 103 ) @ 9:36:00 AM Clinical Evaluation EBL: 5mL-10mL Procedural Details Procedure Consent Obtained. Pre-Procedure Time Out. Identified patient by full name and date of as verbalized by the patient/guarantor. Does the consent match the physician's order: Yes. Accurate & Complete Informed Consent: Yes. Inpatient/Outpatient History & Physical on Chart: Yes. If H&P is completed, is and addenduem needed: No. Visualize and Verify Site with Patient/Guarantor: N/A. Relevant Radiology Images available: Yes. The risks, benefits, and alternatives of sedation and/or procedure were discussed by physician. The patient agrees to continue. Procedure started. [facility] Clinical Fraility Score: 5: Mildly Frail. Mortgage Loan Specialist Indications: ACS > 24 hours(NSTEMI). Chest Pain Symptom Assessment: Atypical Angina. Cardiovascular Instability: No. Correct patient, site and procedure confirmed by cath team. PERRLA. Strong, equal hand director of direct marketing bilaterally. Lungs clear x 5 lobes. IV Site on Arrival: 20 gauge in the right anticubital. IV Fluids: 0.9% NaCl at KVO. 100 mL infused prior to laborer tin can. Pre Procedural Pulses: bilateral dorsalis pedis was 2+. Pre Procedural Pulses: bilateral posterior tibial was 1+. Oxygen started at 2liters/min via nasal canula. bilateral groins was prepped with chloroprep then draped in the usual sterile fashion. Physician notified. Baseline sample Acquired. HR: 81 BPM. Patient arrived to the laborer tin can with a wetzel cath draining clear, yellow UOP. Patient's family in the laborer tin can waiting room. Dr. Mancini will update at the completion of the procedure. Equipment: 6F - Femoral. Cardiac Cath Pack. ACIST Manifold Kit Model BT 2000. Heparinized Saline (2 units/mL), 1000 mL bag. Kit, Micropuncture. Physician arrived. Physician scrubbed in. Immediate Pre-Procedure Time Out. Correct Patient: Yes; Correct Procedure: Yes; Correct Site: Yes; Correct Patient Position: Yes; Correct Supplies: Yes; Dried Flammable Prep: Yes; Blood Products Available: N/A;. Lidocaine 1% infiltrated to the right groin. Arterial access obtained with micropuncture set. A 5 icelandic JL4 catheter in over the standard J wire. Multiple views taken of left coronary artery. Catheter removed over the standard wire. A 5 icelandic JR4 catheter in over the standard J wire. Multiple views taken of right coronary artery. SVG x 2 are known to be occluded. Catheter redirected to the VOGT. VOGT to LAD visualized. Dr. Mancini reviewing cineography. Catheter removed over the standard J wire. 6 icelandic XB 3.5 guide catheter was inserted over the standard J wire. Guide catheter out over the standard J wire. 6 icelandic XB 3 guide catheter was inserted over the standard J wire. Runthrough guidewire was advanced through the guide catheter to lesion in the mid Circ. Inflation number : 1 A AB TREK 2.25X15 RX BALLOON was prepped and advanced across the 2nd Ob Sherri , then inflated to 8 HEATHER for 0:13 seconds. Inflation number: 2 The AB TREK 2.25X15 RX BALLOON was reinflated across the 2nd Ob Sherri, to 4 HEATHER for 0:13 seconds. Inflation number: 1 The AB TREK 2.25X15 RX BALLOON was reinflated across the Mid CX, to 10 HEATHER for 0:18 seconds. Balloon out. Results checked. Inflation Number : 2 A MDT R LETTY 2.5X15 MELCHOR -Lot Number# [id number] was prepped and advanced across the Mid CX. The stent was deployed at 12 HEATHER for 0:18 seconds. Exp . Stent balloon out over wire. Results checked. Wire out. Results checked. Guide catheter out over the standard J wire. A Right femoral angiogram was performed to determine safe placement of closure device. A Angio-Seal VIP ([place]) was successful obtaining hemostatsis at the Right Femoral artery insertion site. Angioseal placed without complications. No signs or symptoms of hematoma noted. Sterile dressing applied per usual sterile fashion. Lot # [id number]. Exp. . Post Procedure: Pulses reassessed and unchanged. PERRLA. Strong, equal hand director of direct marketing bilaterally. No VTE prophylaxis required. Medication's Wasted: Other = Fentanyl 50 mcg. Medication's Wasted: Other = Versed 1 mg. Total IV fluids: 25 mL. PCI Indication: NSTE. Post-op diagnosis: Severe mid CX and OM 2 disease s/p PCI of the Mid CX and POBA of OM 2. Complications: none. Estimated blood loss: 5mL-10mL. Responsiveness - Normal response to verbal stimuli; alert and oriented, PERRLA. Airway - Unaffected, no intervention required; spontaneous ventilation. Circulation: W/N/L, pulses unchanged. Nausea/Vomiting: No. Vital chart was stopped. Medication's Wasted: Heparin = 1000 Units. Procedure completed. Patient transferred by bed to 1st floor. Access Site Site: Right Femoral artery Sheath Size: 5 Fr Hemostasis Method: Angio-Seal VIP ([place]) Hemostasis Success: Successful Procedure Medications Start: 9:04 AM Stop: 9:04 AM Medication: Versed Amount: 1 mg Route: I.V. Start: 9:05 AM Stop: 9:05 AM Medication: Fentanyl Amount: 25 mcg Route: I.V. Start: 9:08 AM Stop: 9:08 AM Medication: Fentanyl Amount: 25 mcg Route: I.V. Start: 9:56 AM Stop: 9:56 AM Medication: Plavix Amount: 300 mg Route: P.O. I, the attending physician, have reviewed and verified all procedure medications. Yes, all medications given per verbal order History/Risk Factors Hypertension: Yes Dyslipidemia: Yes Peripheral Arterial Disease (PAD): Yes Myocardial Infarction (ID): No Obesity: No Renal Disease: Yes Tobacco Use: Never Prior Interventions PCI: No CABG: Yes Valve Surgery: No Report Signatures Finalized by Teodoro Mancini MD on 08/10/2023 01:20 PM
[2023-08-04] MEDS: budesonide 0.5 mg/2 mL Neb INHALATION ×2 (08:29→21:37)
[2023-08-04] MEDS: ipratropium-albuterol 3 mL Neb INHALATION ×3 (08:29→21:36)
[2023-08-04] MEDS: aspirin 81 mg EC Tablet PO (08:33)
[2023-08-04] MEDS: hyDRALAzine 50 mg Tablet PO ×3 (08:33→20:18)
[2023-08-04] MEDS: pantoprazole DR 40 mg Tablet PO (08:33)
[2023-08-04] MEDS: clopidogrel 75 mg Tablet PO (08:33)
[2023-08-04] MEDS: ALPRAZolam 0.5 mg Tablet PO ×2 (08:33→17:54)
--- NOTE | 2023-08-04 09:03 | W.PM.OPSUD ---
Surgery/Procedure H&P Update DATE OF PROCEDURE: August 04, 2023 DATE H&P PERFORMED: 08/02/23 H&P UPDATE INFORMATION: I have reviewed H&P completed within last 30 days, I have examined patient prior to procedure and No changes to prior documentation PREOP DIAGNOSIS: NSTEMI PRIMARY INDICATION FOR PROCEDURE: NSTEMI PLANNED PROCEDURE: Left heart cath with possible percutaneous coronary intervention PATIENT REASSESSED PRIOR TO SEDATION, WITH NO CHANGE NOTED: Yes PHYSICAL EXAM: alert, oriented x 3, clear to auscultation bilaterally and regular rate & rhythm AIRWAY EVAL/ANESTHESIA PLAN: normal airway, ASA IV, Local Anesthesia, Risks, benefits & alternatives of sedation and/or procedure discussed and Patient agrees to continue as planned ADDITIONAL INFORMATION: Moderate sedation
--- NOTE | 2023-08-04 10:01 | PM.PN ---
Subjective Subjective: Patient underwent coronary angiogram today. Was found to have severe stenosis of mid left circumflex artery and OM 2. Had PCI of mid circumflex artery with 1 stent and balloon angioplasty of OM 2. Denies chest pain. Vitals/I&O/Wt Last Vital Signs Temp 98.1 F 08/04/23 08:32 Pulse 69 08/04/23 08:00 Resp 16 08/04/23 08:00 BP 181/71 08/04/23 08:00 Pulse Ox 94 08/04/23 08:00 O2 Del Method Room Air 08/04/23 08:00 O2 Flow Rate 2 08/01/23 20:38 08/03/23 08/04/23 08/04/23 22:59 06:59 14:59 Intake Total 240 / 1080 500 / 1580 Output Total 1070 / 1070 550 / 1620 Balance -830 / 10 -50 / -40 Weight last 48 hrs Weight 171 lb Weight 176 lb 4 oz Weight 169 lb 6.4 oz Physical Exam Narrative: GENERAL: Patient is alert, awake and oriented x3. [] NECK: No jugular vein distension. [] HEENT: No cyanosis. No icterus. No pallor. [] HEART: Regular S1 and S2. Grade 2/6 systolic murmur LUNGS: Clear to auscultate bilaterally. [] CENTRAL NERVOUS SYSTEM: Grossly nonfocal. [] EXTREMITIES: Lower extremities with 1+ edema bilaterally. Urinary Catheter Management: Rivera: Cath Placed During This Visit: yes Reason for Continuing Indwelling Catheter: Accurate Measurement of Urinary Output in Critically Ill Patients Urinary Catheter Date of Insertion: 08/01/23 Urinary Catheter Time of Insertion: 20:39 Data 08/04/23 04:40 08/04/23 04:40 Micro: Microbiology 08/02/23 08:00 Gram Stain - Final Sputum - Expectorated Sputum Sputum Culture - Final 08/01/23 18:09 Urine Culture - Final Urine,Clean Catch A&P Assessment and plan (1) CAD (coronary artery disease): Qualifiers: Coronary Disease-Associated Artery/Lesion type: [place] artery [place] vs. transplanted heart: [place] heart Associated angina: without angina Qualified Code(s): I25.10 - Atherosclerotic heart disease of [place] coronary artery without angina pectoris (2) HTN (hypertension), benign: (3) Elevated troponin: (4) CHF (congestive heart failure): (5) Uncontrolled hypertension: (6) Chest pain: Plan Patient had PCI of left circumflex artery and balloon angioplasty of OM 2. She is doing well. Continue current and Plavix. IV fluids till tomorrow morning. Monitor renal function Thank you for involving us with care of this patient. We will continue to follow. Please call with questions. Attestations Medical Necessity Statement*: Care expected to cross 2 midnights. Coding Level of Care Code Acute Code for [facility] Diagnoses Coronary artery disease involving [place] coronary artery of [place] heart without angina pectoris I25.10 Coronary Disease-Associated Artery/Lesion type: [place] artery [place] vs. transplanted heart: [place] heart Associated angina: without angina HTN (hypertension), benign I10 Elevated troponin R79.89 CHF (congestive heart failure) I50.9 Uncontrolled hypertension I10 Chest pain R07.9
[2023-08-04] MEDS: HYDROcodone-acetaminophen 7.5-325 mg Tablet 1 TAB PO (10:47)
[2023-08-04 11:58] LABS: Glucose Point of Care 401 mg/dL (70-110)
--- NOTE | 2023-08-04 12:03 | PC.SOCIAL ---
IMM Update Pg. 2 of IMM updated and reviewed with patient who verbalized understanding. Copy provided. Copy placed in chart.
--- NOTE | 2023-08-04 12:07 | PM.PN ---
Subjective Subjective: Seen this morning. Patient just returned from cath. Laying in bed. Report pending. Vitals/I&O/Wt Last Vital Signs Temp 98.1 F 08/04/23 08:32 Pulse 69 08/04/23 08:00 Resp 16 08/04/23 08:00 BP 181/71 08/04/23 08:00 Pulse Ox 94 08/04/23 08:00 O2 Del Method Room Air 08/04/23 08:00 O2 Flow Rate 2 08/01/23 20:38 08/03/23 08/04/23 08/04/23 22:59 06:59 14:59 Intake Total 240 / 1080 500 / 1580 Output Total 1070 / 1070 550 / 1620 Balance -830 / 10 -50 / -40 Weight last 48 hrs Weight 77.564 kg Weight 79.946 kg Weight 76.839 kg Physical Exam Narrative: General: No acute distress, AO x3 HEENT: old bruising present over left cheek under the eye, no black eye or raccoon sign Chest: Normal vesicular breath sounds, bilateral occasional rhonchi present , equal good air entry bilaterally CVS: S1-S2 regular, no mrg Abdomen: Soft, nontender, no organomegaly, bowel sounds present Neuro: No focal deficits, no facial deformity, AO x3 Urinary Catheter Management: Rivera: Cath Placed During This Visit: yes Reason for Continuing Indwelling Catheter: Accurate Measurement of Urinary Output in Critically Ill Patients Urinary Catheter Date of Insertion: 08/01/23 Urinary Catheter Time of Insertion: 20:39 Data 08/04/23 04:40 08/04/23 04:40 Micro: Microbiology 08/02/23 08:00 Gram Stain - Final Sputum - Expectorated Sputum Sputum Culture - Final 08/01/23 18:09 Urine Culture - Final Urine,Clean Catch A&P Assessment and plan (1) Shortness of breath: (2) Uncontrolled hypertension: (3) CHF (congestive heart failure): (4) COVID: (5) CAD (coronary artery disease): Qualifiers: Coronary Disease-Associated Artery/Lesion type: [place] artery [place] vs. 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 Blood pressure is better controlled. off nitro drip For now continue with home dose of losartan, change hydralazine to 50 mg 3 times a day. add amlodipine 10 mg oral daily. Shortness of breath: Most likely in setting of diastolic congestive heart failure due to uncontrolled hypertension along with COVID-19. Already received IV Lasix in the ER. Rivera catheterization. Strict improper charting, daily weights. Fluid restriction below 1500 cc. hold lasix today. placed on ns 55 cc/hr CAD, Post CABG. Elevated troponin: Cannot rule out non-ST elevation [place]. Family does give history of unstable angina with chest pain and back pain ongoing especially with exertion for last few months. Given uncontrolled hypertension on admission cannot rule out demand ischemia. Continue with aspirin, Plavix. Patient allergic to statins. Echocardiogram results appreciated for no regional wall motion normality and normal EF. s/p Lovenox 1 mg/kg body weight every 12 hourly for now. cardiology consulted Appreciate recent A1c of 6.9, lipid panel today. Pt is s/p cath, PCI circulflex + OM2 COVID-19 pneumonia: Mild disease. Patient currently on room air. Oxygen supplementation keeping saturation over 88%. Dexamethasone 6 mg daily. To complete 10 days DuoNeb every 6 hour, budesonide twice daily Pulmonary toilet with incentive spirometry flutter valve. We will monitor inflammatory markers including CRP every 48 hours. D-dimer negative for age. Appreciate CT chest results. No concerns for PE for now. Patient on full dose anticoagulation with concerns for non-ST elevation [place] for now. Sputum culture pending negative, procalcitonin negative, urine Legionella, bacterial antigen negative. Low concern for bacterial pneumonia for now. Hold off on antibiotics for now. Type 2 diabetes mellitus: Appreciate recent A1c. Continue with home dose of glargine. Insulin sliding scale at low-dose protocol. CODE STATUS: Patient's son and daughter will be the DPOA. Full code. Cardiac carb consistent diet. Heparin 5000 every 12 hourly for DVT prophylaxis Protonix for PUD prophylaxis. Plan for the day: Continue with losartan and hydralazine 50 mg 3 times a day. Goal blood pressure less than 140/90 MAG. add low-dose amlodipine 10 daily. IV hydralazine 10 mg every 6 hours as needed for systolic of more than 160 mmHg. Continue with IV dexamethasone for COVID-19. Patient remains on room air. Add Tessalon Perles 200 mg 3 times a day. NSTEMI: s/p cath today. Had PCI. Cardiology consulted and on board. Continue asa, plavix Continue on gentle IV hydration with normal saline 50 cc/h for 500 cc. Repeat labs in AM. Blood sugars elevated. Continue Lantus to 20 units daily. - continue to monitor in cardiac stepdown unit after cath today Attestations Medical Necessity Statement*: s/p cath today.plan for dc in next 48 hours Diagnoses Shortness of breath R06.02 Uncontrolled hypertension I10 CHF (congestive heart failure) I50.9 COVID U07.1 Coronary artery disease involving [place] coronary artery of [place] heart without angina pectoris I25.10 Coronary Disease-Associated Artery/Lesion type: [place] artery [place] vs. transplanted heart: [place] heart Associated angina: without angina Steroid-induced hyperglycemia R73.9; T38.0X5A Hypertension I10 Type 2 diabetes mellitus without complication, with long-term current use of insulin E11.9; Z79.4 Diabetes mellitus type: type 2 Diabetes mellitus prison insulin use: with termite exterminator use Diabetes mellitus complication status: without complication
[2023-08-04] MEDS: insulin lispro 100 unit/1 mL SUBCUT ×3 (12:08→22:08)
[2023-08-04] MEDS: amlodipine 10 mg Tablet PO (13:38)
[2023-08-04 15:29] LABS: Methicillin-Resist S.aureu PCR NOT DETECTED (NOT DETECTED)
[2023-08-04 17:15] LABS: Glucose Point of Care 370 mg/dL (70-110)
[2023-08-04] MEDS: dexamethasone 10 mg/mL INJ 6 MG IVP (20:18)
[2023-08-04 21:37] LABS: Glucose Point of Care 184 mg/dL (70-110)
[2023-08-05] VITALS (15 sets, daily range): BP systolic 115–167; BP diastolic 56–90; PULSE 62–85; RESP 16–24; TEMP 36.6–37.4; O2SAT 93–97; BMI 27.1
[2023-08-05] MEDS: insulin glargine 100 units/1 mL 20 UNIT SUBCUT (05:12)
[2023-08-05] MEDS: losartan 50 mg Tablet 100 MG PO (05:12)
[2023-08-05 05:18] LABS: Lymphocytes # 0.6 10^3/uL (0.8-4.8); Lymphocytes % 17.6 %; Mean Platelet Volume 10.6 fL (7.4-10.4); Monocytes # 0.2 10^3/uL (0.2-0.9); Monocytes % 4.7 %; Neutrophils # 2.47 10^3/uL (1.8-7.7); Neutrophils % 77.4 %; Nucleated Red Blood Cells % 0 %; Platelet Count 227 10^3/cmm (157-399); Red Blood Count 3.69 10^6/uL (3.85-5.65); Red Cell Distribution Width 14.9 % (12.1-15.1); White Blood Count 3.19 10^3/uL (3.29-11.43)
[2023-08-05 05:46] LABS: Anion Gap 14.1 (5-19); Blood Urea Nitrogen 39 mg/dL (8-23); C Reactive Protein 9.3 mg/L (0.0-4.9); Calcium 8.7 mg/dL (8.5-10.5); Carbon Dioxide 21 mmol/L (22-29); Chloride 103 mmol/L (98-107); Glucose 139 mg/dL (65-115); Magnesium 1.9 mg/dL (1.7-2.3); Osmolality Calculated 288 mOsm/kg (285-295); Potassium 5.1 mmol/L (3.5-5.1); Sodium 133 mmol/L (136-145)
[2023-08-05 06:29] LABS: Glucose Point of Care 229 mg/dL (70-110)
[2023-08-05] MEDS: ipratropium-albuterol 3 mL Neb INHALATION ×2 (07:33→21:26)
[2023-08-05] MEDS: budesonide 0.5 mg/2 mL Neb INHALATION ×2 (07:33→21:26)
--- NOTE | 2023-08-05 08:30 | P.PN_ITS ---
Subjective 2 Subjective: Patient not having any chest pain. Had PCI of left circumflex artery and balloon angioplasty of OM 2. Her kidney function has worsened today. Vitals/I&O/Wt Last Vital Signs Temp 98.1 F 08/05/23 08:00 Pulse 85 08/05/23 08:00 Resp 20 H 08/05/23 08:00 BP 133/80 08/05/23 08:00 Pulse Ox 95 08/05/23 08:00 O2 Del Method Room Air 08/05/23 08:00 O2 Flow Rate 2 08/01/23 20:38 08/04/23 08/05/23 08/05/23 22:59 06:59 14:59 Intake Total 240 / 480 550 / 1030 1000 / 1000 Output Total 300 / 900 900 / 1800 Balance -60 / -420 -350 / -770 1000 / 1000 Weight last 48 hrs Weight 169 lb 7 oz Weight 171 lb Weight 176 lb 4 oz Physical Exam 2 Narrative: GENERAL: Patient is alert, awake and oriented x3. [] NECK: No jugular vein distension. [] HEENT: No cyanosis. No icterus. No pallor. [] HEART: Regular S1 and S2. Grade 2/6 systolic murmur LUNGS: Clear to auscultate bilaterally. [] CENTRAL NERVOUS SYSTEM: Grossly nonfocal. [] EXTREMITIES: Lower extremities with 1+ edema bilaterally. Urinary Catheter Management: Rivera: Cath Placed During This Visit: yes Reason for Continuing Indwelling Catheter: Accurate Measurement of Urinary Output in Critically Ill Patients Urinary Catheter Date of Insertion: 08/01/23 Urinary Catheter Time of Insertion: 20:39 Data 08/05/23 04:15 08/05/23 04:15 Micro: Microbiology 08/02/23 08:00 Gram Stain - Final Sputum - Expectorated Sputum Sputum Culture - Final A&P Assessment and plan (1) CAD (coronary artery disease): Qualifiers: Coronary Disease-Associated Artery/Lesion type: [place] artery [place] vs. transplanted heart: [place] heart Associated angina: without angina Qualified Code(s): I25.10 - Atherosclerotic heart disease of [place] coronary artery without angina pectoris (2) HTN (hypertension), benign: (3) Elevated troponin: (4) CHF (congestive heart failure): (5) Uncontrolled hypertension: (6) Chest pain: Plan Continue dual antibiotic therapy with aspirin and Plavix. Renal function has worsened. We will start IV fluids. Monitor renal function. If stabilizes, can be discharged home tomorrow. Thank you for involving us with care of this patient. We will continue to follow. Please call with questions. Attestations 2 Medical Necessity Statement*: Care expected to cross 2 midnights. Coding Level of Care Code Acute Code for Josg Fwd Diagnoses Coronary artery disease involving [place] coronary artery of [place] heart without angina pectoris I25.10 Coronary Disease-Associated Artery/Lesion type: [place] artery [place] vs. transplanted heart: [place] heart Associated angina: without angina HTN (hypertension), benign I10 Elevated troponin R79.89 CHF (congestive heart failure) I50.9 Uncontrolled hypertension I10 Chest pain R07.9
[2023-08-05] MEDS: aspirin 81 mg EC Tablet PO (09:37)
[2023-08-05] MEDS: ALPRAZolam 0.5 mg Tablet PO ×2 (09:37→17:41)
[2023-08-05] MEDS: pantoprazole DR 40 mg Tablet PO (09:38)
[2023-08-05] MEDS: insulin lispro 100 unit/1 mL SUBCUT ×4 (09:38→22:01)
[2023-08-05] MEDS: amlodipine 10 mg Tablet PO (09:38)
[2023-08-05] MEDS: hyDRALAzine 50 mg Tablet PO (09:38)
[2023-08-05] MEDS: clopidogrel 75 mg Tablet PO (09:38)
[2023-08-05] MEDS: sodium chloride 0.9% 1,000 ML 50 ML IV (09:40)
[2023-08-05 12:10] LABS: Glucose Point of Care 387 mg/dL (70-110)
--- NOTE | 2023-08-05 14:16 | P.PN_ITS ---
Subjective 2 Subjective: seen this am cr 1.4 She has developed an DILCIA. Denies chest pain, shortness of breath currently on IV fluids. Vitals/I&O/Wt Last Vital Signs Temp 98.1 F 08/05/23 08:00 Pulse 75 08/05/23 12:00 Resp 18 08/05/23 12:00 BP 115/66 08/05/23 12:00 Pulse Ox 96 08/05/23 12:00 O2 Del Method Room Air 08/05/23 12:00 O2 Flow Rate 2 08/01/23 20:38 08/04/23 08/05/23 08/05/23 22:59 06:59 14:59 Intake Total 240 / 480 550 / 1030 1240 / 1240 Output Total 300 / 900 900 / 1800 Balance -60 / -420 -350 / -770 1240 / 1240 Weight last 48 hrs Weight 76.856 kg Weight 77.564 kg Physical Exam 2 Narrative: General: No acute distress, AO x3 HEENT: old bruising present over left cheek under the eye, no black eye or raccoon sign Chest: Normal vesicular breath sounds, bilateral occasional rhonchi present , equal good air entry bilaterally, clear to auscultation bilaterally CVS: S1-S2 regular, no mrg Abdomen: Soft, nontender, no organomegaly, bowel sounds present Neuro: No focal deficits, no facial deformity, AO x3 Urinary Catheter Management: Rivera: Cath Placed During This Visit: yes Reason for Continuing Indwelling Catheter: Accurate Measurement of Urinary Output in Critically Ill Patients Urinary Catheter Date of Insertion: 08/01/23 Urinary Catheter Time of Insertion: 20:39 Data 08/05/23 04:15 08/05/23 04:15 Micro: Microbiology 08/02/23 08:00 Gram Stain - Final Sputum - Expectorated Sputum Sputum Culture - Final A&P Assessment and plan (1) Shortness of breath: (2) Uncontrolled hypertension: (3) CHF (congestive heart failure): (4) COVID: (5) CAD (coronary artery disease): Qualifiers: Coronary Disease-Associated Artery/Lesion type: [place] artery [place] vs. 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 Blood pressure is better controlled. off nitro drip For now continue with home dose of losartan, change hydralazine to 50 mg 3 times a day. add amlodipine 10 mg oral daily. Shortness of breath: Most likely in setting of diastolic congestive heart failure due to uncontrolled hypertension along with COVID-19. Already received IV Lasix in the ER. Rivera catheterization. Strict improper charting, daily weights. Fluid restriction below 1500 cc. hold lasix today. placed on ns 55 cc/hr CAD, Post CABG. Elevated troponin: Cannot rule out non-ST elevation [place]. Family does give history of unstable angina with chest pain and back pain ongoing especially with exertion for last few months. Given uncontrolled hypertension on admission cannot rule out demand ischemia. Continue with aspirin, Plavix. Patient allergic to statins. Echocardiogram results appreciated for no regional wall motion normality and normal EF. s/p Lovenox 1 mg/kg body weight every 12 hourly for now. cardiology consulted Appreciate recent A1c of 6.9, lipid panel today. Pt is s/p cath, PCI circulflex + OM2 COVID-19 pneumonia: Mild disease. Patient currently on room air. Oxygen supplementation keeping saturation over 88%. Dexamethasone 6 mg daily. To complete 10 days DuoNeb every 6 hour, budesonide twice daily Pulmonary toilet with incentive spirometry flutter valve. We will monitor inflammatory markers including CRP every 48 hours. D-dimer negative for age. Appreciate CT chest results. No concerns for PE for now. Patient on full dose anticoagulation with concerns for non-ST elevation [place] for now. Sputum culture pending negative, procalcitonin negative, urine Legionella, bacterial antigen negative. Low concern for bacterial pneumonia for now. Hold off on antibiotics for now. Type 2 diabetes mellitus: Appreciate recent A1c. Continue with home dose of glargine. Insulin sliding scale at low-dose protocol. CODE STATUS: Patient's son and daughter will be the DPOA. Full code. Cardiac carb consistent diet. Heparin 5000 every 12 hourly for DVT prophylaxis Protonix for PUD prophylaxis. 1/2/24 Plan for the day: Continue with hydralazine 50 mg 3 times a day. Goal blood pressure less than 140/90 MAG. add low-dose amlodipine 10 daily. Hold losartan today. Hold other nephrotoxic medications. Continue with IV dexamethasone for COVID-19. Patient remains on room air. Add Tessalon Perles 200 mg 3 times a day. NSTEMI: s/p cath today. Had PCI. Cardiology consulted and on board. Continue asa, plavix Continue on gentle IV hydration with normal saline 50 cc/h. Patient has developed an DILCIA secondary to contrast. Continue to hydrate patient. If creatinine stays stable by tomorrow plan to discharge. Repeat labs in AM. Blood sugars elevated. Continue Lantus to 20 units daily. Check BMP every 12 hours. If worsening may require nephrology consult. Will call patient's family over the phone to update them. Attestations 2 Medical Necessity Statement*: Requires hospitalization for DILCIA. Diagnoses Shortness of breath R06.02 Uncontrolled hypertension I10 CHF (congestive heart failure) I50.9 COVID U07.1 Coronary artery disease involving [place] coronary artery of [place] heart without angina pectoris I25.10 Coronary Disease-Associated Artery/Lesion type: [place] artery [place] vs. transplanted heart: [place] heart Associated angina: without angina Steroid-induced hyperglycemia R73.9; T38.0X5A Hypertension I10 Type 2 diabetes mellitus without complication, with long-term current use of insulin E11.9; Z79.4 Diabetes mellitus type: type 2 Diabetes mellitus termite renewal inspector insulin use: with skilled nursing use Diabetes mellitus complication status: without complication
[2023-08-05 17:06] LABS: Glucose Point of Care 336 mg/dL (70-110)
[2023-08-05] MEDS: hyDRALAzine 25 mg Tablet 50 MG PO (21:03)
[2023-08-05] MEDS: dexamethasone 10 mg/mL INJ 6 MG IVP (21:03)
[2023-08-05 21:44] LABS: Glucose Point of Care 160 mg/dL (70-110)
[2023-08-06] VITALS (10 sets, daily range): BP systolic 120–185; BP diastolic 51–128; PULSE 58–76; RESP 15–18; TEMP 36.1–36.6; O2SAT 93–96
[2023-08-06] MEDS: ipratropium-albuterol 3 mL Neb INHALATION ×2 (02:50→08:53)
[2023-08-06 04:04] LABS: Hematocrit 30.1 % (36-47); Lymphocytes # 0.6 10^3/uL (0.8-4.8); Lymphocytes % 22.5 %; Mean Corpuscular HGB Conc 32.2 g/dL (30-55); Mean Corpuscular Hemoglobin 25.8 pg (27-33); Mean Corpuscular Volume 80.1 fl (85-98); Mean Platelet Volume 10.3 fL (7.4-10.4); Monocytes # 0.1 10^3/uL (0.2-0.9); Monocytes % 3.7 %; Neutrophils # 1.95 10^3/uL (1.8-7.7); Neutrophils % 73.1 %; Nucleated Red Blood Cells % 0 %; Platelet Count 219 10^3/cmm (157-399); Red Blood Count 3.76 10^6/uL (3.85-5.65); Red Cell Distribution Width 14.8 % (12.1-15.1); White Blood Count 2.67 10^3/uL (3.29-11.43)
[2023-08-06 04:26] LABS: Blood Urea Nitrogen 42 mg/dL (8-23); Calcium 8.8 mg/dL (8.5-10.5); Carbon Dioxide 20 mmol/L (22-29); Chloride 102 mmol/L (98-107); Glucose 190 mg/dL (65-115); Magnesium 1.9 mg/dL (1.7-2.3); Osmolality Calculated 288 mOsm/kg (285-295); Sodium 131 mmol/L (136-145)
[2023-08-06] MEDS: insulin glargine 100 units/1 mL 20 UNIT SUBCUT (05:26)
[2023-08-06 06:46] LABS: Glucose Point of Care 261 mg/dL (70-110)
--- NOTE | 2023-08-06 07:45 | P.PN_ITS ---
Subjective 2 Subjective: Patient doing well.No chest pain Vitals/I&O/Wt Last Vital Signs Temp 97.7 F 08/06/23 07:07 Pulse 71 08/06/23 07:07 Resp 15 08/06/23 07:07 BP 185/96 08/06/23 07:07 Pulse Ox 96 08/06/23 07:07 O2 Del Method Room Air 08/06/23 07:07 O2 Flow Rate 2 08/01/23 20:38 08/05/23 08/06/23 08/06/23 22:59 06:59 14:59 Intake Total 580 / 1820 Output Total 600 / 1000 1450 / 2450 Balance -20 / 820 -1450 / -630 Weight last 48 hrs Weight 168 lb 7 oz Weight 169 lb 7 oz Physical Exam 2 Narrative: GENERAL: Patient is alert, awake and oriented x3. [] NECK: No jugular vein distension. [] HEENT: No cyanosis. No icterus. No pallor. [] HEART: Regular S1 and S2. Grade 2/6 systolic murmur LUNGS: Clear to auscultate bilaterally. [] CENTRAL NERVOUS SYSTEM: Grossly nonfocal. [] EXTREMITIES: Lower extremities with 1+ edema bilaterally. Urinary Catheter Management: Rivera: Cath Placed During This Visit: yes, but has since been removed by the nurse Reason for Continuing Indwelling Catheter: Decision to DC Catheter Urinary Catheter Date of Insertion: 08/01/23 Urinary Catheter Time of Insertion: 20:39 Date Urinary Catheter Removed: 08/05/23 Time Urinary Catheter Discontinued: 11:30 Data 08/06/23 03:48 08/06/23 03:48 A&P Assessment and plan (1) CAD (coronary artery disease): Qualifiers: Coronary Disease-Associated Artery/Lesion type: [place] artery [place] vs. transplanted heart: [place] heart Associated angina: without angina Qualified Code(s): I25.10 - Atherosclerotic heart disease of [place] coronary artery without angina pectoris (2) HTN (hypertension), benign: (3) Elevated troponin: (4) CHF (congestive heart failure): (5) Uncontrolled hypertension: (6) Chest pain: Plan Patient is overall stable. We will continue with current medications including aspirin and Plavix. Renal function has improved Thank you for involving us with care of this patient. Patient is stable to be discharged from cardiology standpoint. Please call with questions. Attestations 2 Medical Necessity Statement*: Care expected to cross 2 midnights Coding Level of Care Code Acute Code for Chg Fwd Diagnoses Coronary artery disease involving [place] coronary artery of [place] heart without angina pectoris I25.10 Coronary Disease-Associated Artery/Lesion type: [place] artery [place] vs. transplanted heart: [place] heart Associated angina: without angina HTN (hypertension), benign I10 Elevated troponin R79.89 CHF (congestive heart failure) I50.9 Uncontrolled hypertension I10 Chest pain R07.9
--- NOTE | 2023-08-06 08:00 | PM.DCS ---
Discharge Providers Date of Admission: 08/01/23 20:02 Date of Discharge: August 06, 2023 Attending Provider at Admission: Margaret Arshad MD Attending Provider at Discharge: Anastasia Mena MD Primary Care Provider: Dallas Lorenzana MD Diagnoses at Discharge Discharge Diagnosis (1) Shortness of breath: Status: Acute (2) Uncontrolled hypertension: Status: Acute (3) CHF (congestive heart failure): Status: Acute (4) COVID: Status: Acute (5) CAD (coronary artery disease): Status: Acute Qualifiers: Associated angina: without angina Coronary Disease-Associated Artery/Lesion type: [place] artery [place] vs. 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 Mensah Olga Anna is a 87 year old female with past medical history of uncontrolled hypertension, CAD post CABG, subclavian stenosis, carotid artery disease, stroke, type 2 diabetes mellitus presents to the ER today because of feeling weak and tired for last 1 week along with difficulty in breathing which has been getting worse for last 3 to 4 days associated with chest tightness. Patient also with history of a fall few weeks ago. He states he usually gets unsteady on her feet when her blood sugar drops. She sustained a bruise on her face. Denies any pain, bleeding, nausea, vomiting, headache. She does check her blood pressures at home and usually running more than 150 systolic. In the ER she was found to be COVID-positive, saturating well on room air with elevated blood pressures. Patient continued to complain of shortness of breath and tiredness. On examination patient is systolic blood pressure of 220/118 mmHg, heart rate of 88 bpm saturating 97% on room air. Hospital Course Hospital Course Patient was admitted for shortness of breath and chest tightness. She also had uncontrolled hypertension and required a nitro drip during hospital stay. She was diuresed as well with Lasix. She does have CAD status post CABG. She ended up undergoing cath with PCI to circumflex and OM 2. Patient completed 48 hours of therapeutic Lovenox as per ACS protocol. Also positive for COVID-19 during hospital stay requiring dexamethasone. Status post cast patient developed an DILCIA secondary to contrast. She required IV hydration. Creatinine is down to 1.1 today closer to her baseline. Patient will be discharged home in stable condition. Is to follow-up with cardiology and primary care after discharge. Patient has been advised to keep a log of her blood pressures and to take to her next cardiology appointment. She is to continue on aspirin, Plavix. Med rec will be completed and given to patient at discharge. Physical Exam Narrative: General: No acute distress, AO x3 HEENT: old bruising present over left cheek under the eye, no black eye or raccoon sign Chest: clear to auscultation bilaterally CVS: S1-S2 regular, no mrg Abdomen: Soft, nontender, no organomegaly, bowel sounds present Neuro: No focal deficits, no facial deformity, AO x3 Urinary Catheter Management: Rivera: Cath Placed During This Visit: yes, but has since been removed by the nurse Reason for Continuing Indwelling Catheter: Decision to DC Catheter Urinary Catheter Date of Insertion: 08/01/23 Urinary Catheter Time of Insertion: 20:39 Date Urinary Catheter Removed: 08/05/23 Time Urinary Catheter Discontinued: 11:30 Discharge Data Studies Completed and Pending Completed Studies During Hospitalization Category Date Time Status CT chest wo con [id number] Stat Cat Scan 08/01/23 20:38 Completed XR chest 1V portable [id number] Stat Exams 08/01/23 17:18 Completed CV. echo complete* [id number] Routine Ultrasound 08/02/23 06:00 Completed Pending at discharge Category Date Time Status SEISMIC COMPUTER request for service Routine Exams 08/04/23 08:15 Taken Radiology Impressions Chest X-Ray 08/01/23 17:18 IMPRESSION: Pulmonary edema. Chest CT 08/01/23 20:38 IMPRESSION: 1. Exam confirms findings of heart failure with cardiomegaly, mild pulmonary edema, and small bilateral pleural effusions. 2. No ground-glass infiltrate to confirm COVID-19 pneumonia. 3. Hyperdense liver. Differential diagnosis includes hemochromatosis as well as medication effect from amiodarone or gold. Laboratory Results WBC 2.67 10^3/uL (3.29-11.43) L 08/06/23 03:48 RBC 3.76 10^6/uL (3.85-5.65) L 08/06/23 03:48 Hgb 9.70 g/dL (11.27-16.99) L 08/06/23 03:48 Hct 30.1 % (36-47) L 08/06/23 03:48 MCV 80.1 fl (85-98) L 08/06/23 03:48 MCH 25.8 pg (27-33) L 08/06/23 03:48 MCHC 32.2 g/dL (30-55) 08/06/23 03:48 RDW 14.8 % (12.1-15.1) 08/06/23 03:48 Plt Count 219 10^3/cmm (157-399) 08/06/23 03:48 MPV 10.3 fL (7.4-10.4) 08/06/23 03:48 Neut % (Auto) 73.1 % 08/06/23 03:48 Lymph % (Auto) 22.5 % 08/06/23 03:48 [place] % (Auto) 3.7 % 08/06/23 03:48 Eos % (Auto) 0.0 % 08/06/23 03:48 Baso % (Auto) 0.0 % 08/06/23 03:48 Neut # (Auto) 1.95 10^3/uL (1.8-7.7) 08/06/23 03:48 Lymph # (Auto) 0.6 10^3/uL (0.8-4.8) L 08/06/23 03:48 [place] # (Auto) 0.1 10^3/uL (0.2-0.9) L 08/06/23 03:48 Eos # (Auto) 0.0 10^3/uL (0.0-0.8) 08/06/23 03:48 Baso # (Auto) 0.0 10^3/uL (0.0-0.1) 08/06/23 03:48 Nucleated RBC % (auto) 0 % 08/06/23 03:48 Nucleated RBCs # 0.0 /100WBC 08/06/23 03:48 ESR 21 mm/hr (0-15) H 08/01/23 17:54 D-Dimer 0.65 ug/mLFEU (0-0.59) H 08/01/23 17:54 Sodium 131 mmol/L (136-145) L 08/06/23 03:48 Potassium 5.0 mmol/L (3.5-5.1) 08/06/23 03:48 Chloride 102 mmol/L (98-107) 08/06/23 03:48 Carbon Dioxide 20 mmol/L (22-29) L 08/06/23 03:48 Anion Gap 14.0 (5-19) 08/06/23 03:48 BUN 42 mg/dL (8-23) H 08/06/23 03:48 Creatinine 1.1 mg/dL (0.5-0.9) H 08/06/23 03:48 GFR Calculation Not Reportable 08/06/23 03:48 Glucose 190 mg/dL (65-115) H 08/06/23 03:48 POC Glucose 261 mg/dL (70-110) H 08/06/23 06:38 Calculated Osmolality 288 mOsm/kg (285-295) 08/06/23 03:48 Lactic Acid 1.2 mmol/L (0.5-2.2) 08/01/23 17:54 Calcium 8.8 mg/dL (8.5-10.5) 08/06/23 03:48 Phosphorus 3.7 mg/dL (2.5-4.5) 08/02/23 03:37 Magnesium 1.9 mg/dL (1.7-2.3) 08/06/23 03:48 Iron 31 ug/dL (37-145) L 08/01/23 17:54 TIBC 326 mcg/dl 08/01/23 17:54 % Saturation 9.5 % (20-50) L 08/01/23 17:54 Unsat Iron Binding 295 ug/dL (112-347) 08/01/23 17:54 Total Bilirubin 0.2 mg/dL (0.15-1.2) 08/04/23 04:40 AST 19 U/L (0-32) 08/04/23 04:40 ALT 19 U/L (0-33) 08/04/23 04:40 Alkaline Phosphatase 91 U/L (35-105) 08/04/23 04:40 Troponin T 5th Gen ng/L 144 ng/L (0-10) H* 08/03/23 03:47 Troponin T Baseline 81 ng/L (0-10) H 08/01/23 17:54 Troponin T 120 Minute 89.67 ng/L (0-10) H 08/01/23 19:34 Delta Troponin T 8.67 ABS# (0-10) 08/01/23 19:34 Troponin T Hi Sens 6Hr 93.31 ng/L (0-10) H 08/02/23 00:50 Troponin T Hi Sens 6Hr Delta 12.31 ng/L (0-12) H* 08/02/23 00:50 C-Reactive Protein 9.3 mg/L (0.0-4.9) H 08/05/23 04:15 NT-Pro-B Natriuret Pep 76031 pg/mL (0-450) H 08/01/23 17:54 Total Protein 5.8 g/dL (6.6-8.7) L 08/04/23 04:40 Albumin 3.1 g/dL (3.5-5.2) L 08/04/23 04:40 Globulin 2.7 g/dL (1.3-4.6) 08/04/23 04:40 Triglycerides 53 mg/dL (0-150) 08/02/23 03:37 Cholesterol 151 mg/dL (0-200) 08/02/23 03:37 LDL Cholesterol, Calc 92 mg/dL (50-129) 08/02/23 03:37 HDL Cholesterol 48 mg/dL (60-100) L 08/02/23 03:37 LDL/HDL Ratio 1.92 RATIO (0.00-3.22) 08/02/23 03:37 Cholesterol/HDL Ratio 3.15 mg/dL (0.0-4.40) 08/02/23 03:37 Lipase 10 U/L (13-60) L 08/01/23 17:54 Vitamin B12 370 pg/mL (232-1245) 08/01/23 17:54 Folate > 20.0 ng/mL (4.8-37.3) 08/02/23 03:37 Procalcitonin 0.05 ng/mL (0-0.5) 08/02/23 03:37 TSH 2.29 uIU/mL (0.27-4.20) 08/01/23 17:54 Urine Color Yellow (Yellow) 08/01/23 18:09 Urine Appearance Hazy (CLEAR) A 08/01/23 18:09 Urine pH 7 (5-7) 08/01/23 18:09 Ur Specific [place] 1.005 (1.005-1.030) 08/01/23 18:09 Urine Protein 1+ (Negative) H 08/01/23 18:09 Urine Glucose (UA) Norm (Normal) 08/01/23 18:09 Urine Ketones Negative (Negative) 08/01/23 18:09 Urine Blood Trace (Negative) H 08/01/23 18:09 Urine Nitrate Negative (Negative) 08/01/23 18:09 Urine Bilirubin Neg (Negative) 08/01/23 18:09 Urine Urobilinogen Norm mg/dL (Negative) 08/01/23 18:09 Ur Leukocyte Esterase 2+ (Negative) H 08/01/23 18:09 Urine RBC 0-4 /hpf (0-2) H 08/01/23 18:09 Urine WBC 10-15 /hpf (0-5) H 08/01/23 18:09 Ur Squamous Epith Cells 0-4 /hpf (0-5) H 08/01/23 18:09 Ur Renal Epithelial Cell N /hpf 08/01/23 18:09 Amorphous Sediment Not Reportable 08/01/23 18:09 Urine Bacteria Trace /hpf (NONE) 08/01/23 18:09 SARS-CoV-2 Ag (Rapid) Positive (Negative) H 08/01/23 18:05 MRSA (PCR) Not detected (NOT DETECTED) 08/02/23 06:07 Vitals Last Vital Signs Temp 97.7 F 08/06/23 07:07 Pulse 71 08/06/23 07:07 Resp 15 08/06/23 07:07 BP 185/96 08/06/23 07:07 Pulse Ox 96 08/06/23 07:07 O2 Del Method Room Air 08/06/23 07:07 O2 Flow Rate 2 08/01/23 20:38 Discharge Plan Discharge Patient Disposition: Home Condition: Stable Prescriptions: New amlodipine 10 mg Tablet 10 mg PO DAILY Qty: 30 0RF hydralazine 50 mg tablet 50 mg PO TID Qty: 90 0RF Continued aspirin [Adult Low Dose Aspirin] 81 mg tablet,delayed release (DR/EC) 81 mg PO DAILY clopidogrel [Plavix] 75 mg tablet 75 mg PO DAILY Qty: 30 11RF (DME) blood-glucose meter [Accu-Chek Guide Glucose Meter] [facility] See Rx Instructions .Route Qty: 1 11RF Rx Instructions: check twice a day lactulose 10 gram/15 mL solution 10 g PO BID PRN (Reason: Constipation) Qty: 473 3RF furosemide 20 mg tablet 20 mg PO DAILY Qty: 90 3RF insulin glargine [Lantus U-100 Insulin] 100 unit/mL solution 15 unit SUBCUT QAM Qty: 10 11RF clonidine HCl 0.1 mg tablet 0.1 mg PO TID PRN (Reason: hypertensive emergency) Qty: 30 11RF Rx Instructions: take for SBP >180 (DME) pen needle, diabetic 32 gauge x 5/32 needle See Rx Instructions .ROUTE .COMPLEX Qty: 50 11RF Dose Instruction: USE DIRECTED TWICE DAILY Rx Instructions: USE DIRECTED TWICE DAILY omeprazole 40 mg capsule,delayed release(DR/EC) 40 mg PO DAILY Qty: 90 3RF insulin asp prt-insulin aspart [Novolog Mix 70-30FlexPen U-100] 100 unit/mL (70-30) insulin pen See Rx Instructions SUBCUT BID Qty: 15 11RF Rx Instructions: 15 in AM and 8 in PM subcutaneously twice a day; alprazolam 0.5 mg tablet 0.5 mg PO BID Qty: 60 3RF (DME) True Metrix Glucose Test Strip Strip See Rx Instructions .Route Qty: 100 11RF Rx Instructions: check twice a day losartan 100 mg tablet 100 mg PO QAM Discharge Orders: Discharge Order (Routine); Ordered 08/06/23 Ordered By: Anastasia Mena Referrals: Teodoro Mancini M.D [Physician] - 1 month (After your appointment with Lexie Jarrett, you will be scheduled for an 1 month follow-up with Dr. Mancini. ) Lexie Jarrett FNP [Nurse Practitioner] - 08/15/23 9:00 am Dallas Lorenzana MD [Primary Care Provider] - 08/19/23 9:20 am Discharge Diet: Cardiac and Diabetic Discharge Activity: Resume usual activity Patient Instructions: Heart Failure (DC), Coronary Angioplasty (DC), CHF Stoplight, Chest Pain Stoplight, Opioid Safety, Post Angiogram Home Care Instructions Discharge Attestations Time Spent in Discharge Care*: greater than 30 min Quality Metrics Clinical Quality Measures [ No reported AMI, CVA or VTE this stay] Coding Level of Care Code 37263 Total time (in minutes) for Discharge: 40 Diagnoses Shortness of breath R06.02 Uncontrolled hypertension I10 CHF (congestive heart failure) I50.9 COVID U07.1 Coronary artery disease involving [place] coronary artery of [place] heart without angina pectoris I25.10 Associated angina: without angina Coronary Disease-Associated Artery/Lesion type: [place] artery [place] vs. transplanted heart: [place] heart Steroid-induced hyperglycemia R73.9; T38.0X5A Hypertension I10 Type 2 diabetes mellitus without complication, with long-term current use of insulin E11.9; Z79.4 Diabetes mellitus complication status: without complication Diabetes mellitus fpc insulin use: with fpc use Diabetes mellitus type: type 2
[2023-08-06] MEDS: insulin lispro 100 unit/1 mL SUBCUT (08:06)
[2023-08-06] MEDS: hyDRALAzine 25 mg Tablet 50 MG PO (08:07)
[2023-08-06] MEDS: aspirin 81 mg EC Tablet PO (08:07)
[2023-08-06] MEDS: amlodipine 10 mg Tablet PO (08:07)
[2023-08-06] MEDS: clopidogrel 75 mg Tablet PO (08:07)
[2023-08-06] MEDS: ALPRAZolam 0.5 mg Tablet PO (08:09)
[2023-08-06] MEDS: pantoprazole DR 40 mg Tablet PO (08:10)
[2023-08-06] MEDS: losartan 50 mg Tablet 100 MG PO (08:50)
--- NOTE | 2023-08-06 09:05 | PC.SOCIAL ---
IMM Updated Updated pt on IMM. No questions voiced. Provided pt a copy. Initialed, dated, & timed copy in chart.
[2023-08-06 11:37] LABS: Glucose Point of Care 413 mg/dL (70-110)
[2023-08-06] MEDS: insulin lispro 100 unit/1 mL 18 UNIT SUBCUT (12:37)
== END 2023-08-06 13:03 | disposition home or self-care (01) | DRG 321 ==
LOC: ER 20:00 → CSU 20:06 → ICU 20:18 → CSU 08-03 16:45
PROVIDERS: Emergency Medicine; Internal Medicine; Student in an Organized Health Care Education/Training Program; Admitting Provider Student in an Organized Health Care Education/Training Program; Emergency Provider Family Medicine; PCP Family Medicine; Visit Provider Internal Medicine
DX: I11.0 Hypertensive heart disease with heart failure (principal); J12.82 Pneumonia due to coronavirus disease 2019; U07.1 COVID-19; N17.9 Acute kidney failure, unspecified; I50.30 Unspecified diastolic (congestive) heart failure; Z86.73 Personal history of transient ischemic attack (TIA), and cerebral infarction without residual deficits; I25.10 Atherosclerotic heart disease of native coronary artery without angina pectoris; Z95.1 Presence of aortocoronary bypass graft; E78.5 Hyperlipidemia, unspecified; E11.51 Type 2 diabetes mellitus with diabetic peripheral angiopathy without gangrene; Z79.4 Long term (current) use of insulin; K59.09 Other constipation; T50.8X5A Adverse effect of diagnostic agents, initial encounter; E11.65 Type 2 diabetes mellitus with hyperglycemia; T38.0X5A Adverse effect of glucocorticoids and synthetic analogues, initial encounter; Z91.81 History of falling; R79.89 Other specified abnormal findings of blood chemistry
CPT/HCPCS: 36415; 36416; 51702; 71045; 71250; 80048; 80053; 80061; 81001; 82607; 82746; 82962; 83540; 83550; 83605; 83690; 83735; 83880; 84100; 84145; 84443; 84484; 85025; 85378; 85651; 86140; 86403; 87070; 87086; 87205; 87426; 87449; 87641; 93005; 93306; 93455; 94640; 96365; 96372; 96375; 96376; 97110; 97116; 97161; 99152; 99153; 99285; C1725; C1760; C1769; C1874; C1887; C1894; C9600; J0360; J0696; J1100; J1644; J1650; J1815; J1940; J2250; J3010; J3475; J3490; J7030; J7040; J7626; Q0163; Q9967

== ENCOUNTER 2023-08-07 15:24 | Observation (INO) | payer MEDICARE, MEDICAID, SELFPAY ==
[2023-08-07] VITALS (14 sets, daily range): BP systolic 100–179; BP diastolic 54–91; PULSE 63–81; RESP 16–25; TEMP 37.4; O2SAT 92–97; BMI 27.4
--- NOTE | 2023-08-07 15:35 | XR_ITS ---
WS: [id number] Portable AP upright chest, 08/07/2023 Clinical Data: fever Comparison: Portable chest, 08/01/2023 Findings: There is minimal opacity at the left costophrenic angle. No nodules, masses or effusions ar e seen. The heart is normal. The pulmonary vascularity is not increased. No pneumothorax is seen. Th e aortic arch and descending thoracic aorta show tortuosity. There are midline sternotomy sutures.. Impression: 1. Clearing of pulmonary vascular congestion. 2. Minimal left costophrenic angle opacity. 3. Atherosclerosis
--- NOTE | 2023-08-07 15:36 | ECG_ITS ---
[facility] Test Date: 2023-08-07 Pat Name: Olga Anna Department: Room: Gender: Female [place] Wheeler: : 1935 Requested By: Cynthia Leon Order Number: [id number] Damien MD: Teodoro Mancini M.D. Measurements Intervals [place] Rate: 68 P: 46 W[place]: 178 QRS: -64 QRSD: 146 T: 48 QT: 431 QTc: 459 Interpretive Statements SINUS RHYTHM POSSIBLE LEFT ATRIAL ENLARGEMENT [-0.1mV P-WAVE IN V1/V2] RIGHT BUNDLE BRANCH BLOCK [120+ ms QRS DURATION, UPRIGHT V1, 40+ ms S IN I/aVL/V4/V5/V6] LEFT ANTERIOR FASCICULAR BLOCK [QRS AXIS <= -45, QR IN I, RS IN II] POSSIBLE LEFT VENTRICULAR HYPERTROPHY [VOLTAGE CRITERIA PLUS LAE OR QRS WIDENING] Compared to ECG 08/01/2023 18:55:01 No significant changes Electronically Signed On 08-07-2023 18:32:33 AUT[employer] HEATER [employer]CH[employer] by Teodoro Mancini M.D. [email or web address]
--- NOTE | 2023-08-07 15:43 | ED_ITS ---
HPI - Weakness 2 General: Chief complaint: Weakness Stated complaint: Weakness, Covid + Time Seen by Provider: 08/07/23 15:27 Source: patient and EMS Mode of arrival: EMS Limitations: no limitations History of Present Illness: 87-year-old female who had been admitted here for CHF she had also tested COVID recently during her admission states since being home today she is felt extremely weak has had fevers she had difficulty walking or taking care of herself due to extreme weakness. Has had some mild dyspnea. 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 CVA (cerebral vascular accident) Lacunar infarct Subclavian arterial stenosis Atherosclerotic heart disease of [place] coronary artery without angina pectoris Hyponatremia CAD (coronary artery disease) HTN (hypertension), benign Hyperlipidemia Bilateral carotid artery stenosis Peripheral vascular disease Chronic constipation Diabetes Surgical History History of colonoscopy Hx of CABG H/O: hysterectomy H/O tubal ligation History of knee surgery Family History Daughter Cancer Family/Other Cancer Lung disease Diabetes Grandmother Cancer Mother Dementia Stroke Brother Diabetes Denies family history of CAD (coronary artery disease) Clotting disorder Chronic kidney disease (CKD) Suicide Anesthesia complication Bleeding disorder Social History Smoking and tobacco/nicotine status: never used tobacco/nicotine Alcohol intake: never Substance/Drug Use: never Lives independently: Yes Physical Exam 2 Const: COMMON NORMALS: patient oriented x3 GENERAL APPEARANCE: lethargic and ill appearing ORIENTATION/CONSCIOUSNESS: Yes lethargic HENMT: COMMON NORMALS: normocephalic and atraumatic HEAD & SCALP: n ormocephalic and atraumatic Eye: COMMON NORMALS: Equal, round and reactive pupils present and EOMs intact bilaterally PUPIL: Yes Equal, round and reactive pupils present Neck/C-Spine: COMMON NORMALS: full ROM and supple Chest: COMMONS NORMALS: normal inspection of the chest and normal palpation of entire chest wall Resp: COMMON NORMALS: normal respiratory effort, No retractions, No use of accessory muscles and clear to auscultation bilaterally AUSCULTATION: clear to auscultation bilaterally Cardio: COMMON NORMALS: regular rate, regular rhythm and No murmurs present (Cardio) RATE: regular rate RHYTHM: regular rhythm GI: COMMON NORMALS: Normal to inspection, nondistended, normoactive bowel sounds present, Soft to palpation, non-tender and no masses PALPATION: Yes Soft to palpation Extremity: COMMON NORMALS: normal to inspection and full ROM Neuro: COMMON NORMALS: patient oriented x3, moves all extremities and no focal motor deficits SENSORIUM/ORIENTATION: Yes lethargic Psych: COMMON NORMALS: mental status grossly normal, Normal thought process present and cooperative THOUGHT PROCESS: Normal thought process present Skin: COMMON NORMALS: no rashes or lesions noted and no wounds GENERAL SKIN EXAM: no rashes or lesions noted Course 2 Vital Signs: Vital signs: Vital Signs Temperature 99.3 F 08/07/23 15:52 Pulse Rate 66 08/07/23 17:04 Respiratory Rate 19 H 08/07/23 17:04 Blood Pressure 101/54 08/07/23 17:04 Pulse Oximetry 95 08/07/23 17:04 Oxygen Delivery Me thod Room Air 08/07/23 17:04 MDM - Weakness Medical Decision Making Patient presents here with generalized weakness along with fever she was recently COVID-positive likely causing her symptoms she is discharged from the hospital yesterday states she not able to take care of herself doing to feeling so weak and lethargic. I spoke to the hospitalist and will readmit her at this time. Medical Records I reviewed the patient's medical records. Lab Data I reviewed the patient's lab results. 08/07/23 15:24 08/07/23 15:24 Laboratory Results WBC 5.36 10^3/uL (3.29-11.43) 08/07/23 15: RBC 3.93 10^6/uL (3.85-5.65) 08/07/23 15:24 Hgb 10.20 g/dL (11.27-16.99) L 08/07/23 15:24 Hct 31.3 % (36-47) L 08/07/23 15: MCV 79.6 fl (85-98) L 08/07/23 15:24 MCH 26.0 pg (27-33) L 08/07/23 15: MCHC 32.6 g/dL (30-55) 08/07/23 15: RDW 14.6 % (12.1-15.1) 08/07/23 15: Plt Count 296 10^3/cmm (157-399) 08/07/23 15:24 MPV 10.0 fL (7.4-10.4) 08/07/23 15:24 Neut % (Auto) 60.6 % 08/07/23 15:24 Lymph % (Auto) 22.9 % 08/07/23 15:24 [place] % (Auto) 13.1 % 08/07/23 15:24 Eos % (Auto) 2.8 % 08/07/23:24 Baso % (Auto) 0.2 % 08/07/23:24 Neut # (Auto) 3.25 10^3/uL (1.8-7.7) 08/07/23 15:24 Lymph # (Auto) 1.2 10^3/uL (0.8-4.8) 08/07/23 15:24 [place] # (Auto) 0.7 10^3/uL (0.2-0.9) 08/07/23 15:24 Eos # (Auto) 0.2 10^3/uL (0.0-0.8) 08/07/23: Baso # (Auto) 0.0 10^3/uL (0.0-0.1) 08/07/23 15:24 Nucleated RBC % (auto) 0 % 08/07/23 15:24 Nucleated RBCs # 0.0 /100WBC 08/07/23 15:24 Sodium 131 mmol/L (136-145) L 08/07/23 15:24 Potassium 4.1 mmol/L (3.5-5.1) 08/07/23 15:24 Chloride 99 mmol/L (98-107) 08/07/23 15:24 Carbon Dioxide 23 mmol/L (22-29) 08/07/23 15:24 Anion Gap 13.1 (5-19) 08/07/23 15:24 BUN 34 mg/dL (8-23) H 08/07/23 15:24 Creatinine 1.1 mg/dL (0.5-0.9) H 08/07/23 15:24 GFR Calculation Not Reportable 08/07/23 15:24 Glucose 95 mg/dL (65-115) 08/07/23 15:24 Calculated Osmolality 279 mOsm/kg (285-295) L 08/07/23 15:24 Lactic Acid 1.4 mmol/L (0.5-2.2) 08/07/23 15:24 Calcium 8.9 mg/dL (8.5-10.5) 08/07/23 15:24 Total Bilirubin 0.3 mg/dL (0.15-1.2) 08/07/23 15:24 AST 33 U/L (0-32) H 08/07/23 15:24 ALT 32 U/L (0-33) 08/07/23 15:24 Alkaline Phosphatase 82 U/L (35-105) 08/07/23 15:24 NT-Pro-B Natriuret Pep 42688 pg/mL (0-450) H 08/07/23 15:24 Total Protein 6.1 g/dL (6.6-8.7) L 08/07/23 15:24 Albumin 3.2 g/dL (3.5-5.2) L 08/07/23 15:24 Globulin 2.9 g/dL (1.3-4.6) 08/07/23 15:24 Urine Color Straw (Yellow) 08/07/23 16:14 Urine Appearance Hazy (CLEAR) A 08/07/23 16:14 Urine pH 6.5 (5-7) 08/07/23 16:14 Ur Specific [place] 1.005 (1.005-1.030) 08/07/23 16:14 Urine Protein Neg (Negative) 08/07/23 16:14 Urine Glucose (UA) Norm (Normal) 08/07/23 16:14 Urine Ketones Negative (Negative) 08/07/23 16:14 Urine Blood Neg (Negative) 08/07/23 16:14 Urine Nitrate Negative (Negative) 08/07/23 16:14 Urine Bilirubin Neg (Negative) 08/07/23 16:14 Urine Urobilinogen Norm mg/dL (Negative) 08/07/23 16:14 Ur Leukocyte Esterase Negative (Negative) 08/07/23 16:14 Urine RBC 0-4 /hpf (0-2) H 08/07/23 16:14 Urine WBC 5-10 /hpf (0-5) H 08/07/23 16:14 Ur Squamous Epith Cells 10-15 /hpf (0-5) H 08/07/23 16:14 Ur Transition Epith Cell 0-4 /hpf 08/07/23 16:14 Amorphous Sediment Not Reportable 08/07/23 16:14 Urine Bacteria Trace /hpf (NONE) 08/07/23 16:14 Fine Granular Casts 10-15 /lpf H 08/07/23 16:14 Urine Mucus Trace /hpf 08/07/23 16:14 All radiology interpretation(s) finalized by discharge EKG Data EKG 1: I personally reviewed and interpreted this EKG as follows: EKG interpretation date: 08/07/23 EKG interpretation time: 16:07 Interpretation: nsr hr [address] or t wave abnormalities qrs 146 qtc 448 Discharge Plan Discharge Patient Disposition: Admitted As Inpatient Clinical Impression: Weakness, COVID-19 Condition: Stable Prescriptions: No Action aspirin [Adult Low Dose Aspirin] 81 mg tablet,delayed release (DR/EC) 81 mg PO DAILY clopidogrel [Plavix] 75 mg tablet 75 mg PO DAILY Qty: 30 11RF (DME) blood-glucose meter [Accu-Chek Guide Glucose Meter] Misc See Rx Instructions .Route Qty: 1 11RF Rx Instructions: check twice a day lactulose 10 gram/15 mL solution 10 g PO BID PRN (Reason: Constipation) Qty: 473 3RF furosemide 20 mg tablet 20 mg PO DAILY Qty: 90 3RF insulin glargine [Lantus U-100 Insulin] 100 unit/mL solution 15 unit SUBCUT QAM Qty: 10 11RF clonidine HCl 0.1 mg tablet 0.1 mg PO TID PRN (Reason: hypertensive emergency) Qty: 30 11RF Rx Instructions: take for SBP >180 (DME) pen needle, diabetic 32 gauge x 5/32 needle See Rx Instructions .ROUTE .COMPLEX Qty: 50 11RF Dose Instruction: USE DIRECTED TWICE DAILY Rx Instructions: USE DIRECTED TWICE DAILY omeprazole 40 mg capsule,delayed release(DR/EC) 40 mg PO DAILY Qty: 90 3RF insulin asp prt-insulin aspart [Novolog Mix 70-30FlexPen U-100] 100 unit/mL (70-30) insulin pen See Rx Instructions SUBCUT BID Qty: 15 11RF Rx Instructions: 15 in AM and 8 in PM subcutaneously twice a day; alprazolam 0.5 mg tablet 0.5 mg PO BID Qty: 60 3RF (DME) True Metrix Glucose Test Strip Strip See Rx Instructions .Route Qty: 100 11RF Rx Instructions: check twice a day losartan 100 mg tablet 100 mg PO QAM amlodipine 10 mg Tablet 10 mg PO DAILY Qty: 30 0RF hydralazine 50 mg tablet 50 mg PO TID Qty: 90 0RF Referrals: Dallas Lorenzana MD [Primary Care Provider] - Coding Level of Care Code ED Control Systems Eng for Chg [place]
[2023-08-07] MEDS: acetaminophen 325 mg Tablet 650 MG PO (15:49)
[2023-08-07 15:52] LABS: Basophils % 0.2 %; Eosinophils # 0.2 10^3/uL (0.0-0.8); Eosinophils % 2.8 %; Hematocrit 31.3 % (36-47); Lymphocytes # 1.2 10^3/uL (0.8-4.8); Lymphocytes % 22.9 %; Mean Corpuscular HGB Conc 32.6 g/dL (30-55); Mean Corpuscular Volume 79.6 fl (85-98); Monocytes # 0.7 10^3/uL (0.2-0.9); Monocytes % 13.1 %; Neutrophils # 3.25 10^3/uL (1.8-7.7); Neutrophils % 60.6 %; Nucleated Red Blood Cells % 0 %; Platelet Count 296 10^3/cmm (157-399); Red Blood Count 3.93 10^6/uL (3.85-5.65); Red Cell Distribution Width 14.6 % (12.1-15.1); White Blood Count 5.36 10^3/uL (3.29-11.43)
[2023-08-07 16:12] LABS: Lactic Sepsis W/Reflex 1.4 mmol/L (0.5-2.2)
[2023-08-07 16:21] LABS: Alanine Aminotransferase 32 U/L (0-33); Albumin Level 3.2 g/dL (3.5-5.2); Alkaline Phosphatase 82 U/L (35-105); Anion Gap 13.1 (5-19); Aspartate Amino Transferase 33 U/L (0-32); Blood Urea Nitrogen 34 mg/dL (8-23); Calcium 8.9 mg/dL (8.5-10.5); Carbon Dioxide 23 mmol/L (22-29); Chloride 99 mmol/L (98-107); Globulin 2.9 g/dL (1.3-4.6); Glucose 95 mg/dL (65-115); NT Pro B Type Natriuretic Pept 19209 pg/mL (0-450); Osmolality Calculated 279 mOsm/kg (285-295); Potassium 4.1 mmol/L (3.5-5.1); Sodium 131 mmol/L (136-145); Total Bilirubin 0.3 mg/dL (0.15-1.2); Total Protein 6.1 g/dL (6.6-8.7)
[2023-08-07 17:13] LABS: Specific Gravity, Urine 1.005 (1.005-1.030); Urine Appearance Hazy (CLEAR); Urine Color Straw (Yellow); pH Urine 6.5 (5-7)
[2023-08-07 17:14] LABS: Bilirubin Urine Neg (Negative); Blood Urine Neg (Negative); Glucose Urine UA Norm (Normal); Ketones Urine Negative (Negative); Leukocyte Esterase Urine Negative (Negative); Nitrate Urine Negative (Negative); Protein Urine Neg (Negative); Urobilinogen Urine Norm (Negative)
[2023-08-07 17:16] LABS: Add Urine Microscopic? YES
[2023-08-07 17:19] LABS: Add Urine Culture? No; Bacteria Urine TRACE /hpf; Mucus Urine TRACE /hpf; RBC Urine 0-4 /hpf (0-2); Transitional Epi Cells Urine 0-4 /hpf
[2023-08-07 19:09] LABS: Glucose Point of Care 114 mg/dL (70-110)
[2023-08-07] MEDS: heparin 5,000 unit/mL INJ 1 mL 5000 UNIT SUBCUT (19:10)
--- NOTE | 2023-08-07 19:45 | P.HP_ITS ---
Providers/Chief Complaint 2 Admitting Physician: Anastasia Mena MD Primary Care Provider: Dallas Lorenzana MD Chief Complaint: Weakness, Covid + History of Present Illness Olga Anna is a 87 year old female who was recently show from the hospital after management of COVID-related weakness, patient went for cardiac cath status post 2 stents, she was discharged once her creatinine and blood pressure improved, patient is returning for complaint of cough, nausea and generalized weakness. Patient stating that she has not noticed any chest pain, fever, worsening of shortness of breath but is extremely weak and lethargic she is not able to get up on her own, she does not have home health services anymore, she is not requiring any oxygen, she is weak to the point she was about to fall today her PCP recommended her to go to the hospital for evaluation. Patient is denying vomiting but stating that she feels sick to her stomach, she feels like she needs to go to the bathroom to have a bowel movement and void simultaneously. Her last bowel movement was yesterday which was regular. 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 She is agreeable to go to rehab Review of Systems 2 Const: Reports: chills and change in weight Eyes: Denies: change in vision ENMT: Denies: throat pain Card: Denies: chest pain Resp: Denies: dyspnea GI: Reports: nausea : Reports: urinary frequency; Denies: flank pain Medications/Allergies Home Medications Medication Instructions Recorded Confirmed Last Taken Type clopidogrel 75 mg tablet (Plavix) 75 mg PO DAILY #30 tabs 10/03/22 08/02/23 08/01/23 Rx aspirin 81 mg tablet,delayed 81 mg PO DAILY 01/22/23 08/02/23 08/01/23 History release (Adult Low Dose Aspirin) losartan 100 mg tablet 100 mg PO QAM 03/03/23 08/02/23 08/01/23 History insulin glargine 100 unit/mL 15 unit (0.15 mL) SUBCUT QAM #10 mL 03/10/23 08/02/2323 Rx subcutaneous solution (Lantus U-100 Insulin) furosemide 20 mg tablet 20 mg PO DAILY #90 tabs 03/18/23 08/02/23 08/01/23 Rx clonidine HCl 0.1 mg tablet 0.1 mg PO TID PRN hypertensive 05/08/23 08/02/23 Unknown Rx emergency #30 tabs blood-glucose meter (Accu-Chek #1 ea 05/14/23 08/02/23 Unknown Rx Guide Glucose Meter) lactulose 10 gram/15 mL oral 10 g (15 mL) PO BID PRN 05/14/23 08/02/23 Unknown Rx solution Constipation #473 mL omeprazole 40 mg capsule,delayed 40 mg PO DAILY #90 caps 06/15/23 08/02/23 08/01/23 Rx release pen needle, diabetic 32 gauge x #50 ea 06/15/23 08/02/23 Unknown Rx insulin aspar prot-insulin aspart See Rx Instructions SUBCUT BID #15 06/18/23 08/02/23 08/01/23 Rx 100 unit/mL (70-30) subcutaneous mL pen (Novolog Mix 70-30FlexPen U-100) alprazolam 0.5 mg tablet 0.5 mg PO BID #60 tabs 07/30/23 08/02/23 08/01/23 Rx blood sugar diagnostic (True #100 ea 07/30/23 08/02/23 Unknown Rx Metrix Glucose Test Strip) amlodipine 10 mg tablet 10 mg PO DAILY #30 tabs 08/06/23 Unknown Rx hydralazine 50 mg tablet 50 mg PO TID #90 tabs 08/06/23 Unknown Rx Allergies Allergy/AdvReac Type Severity Reaction Status Date / Time ezetimibe [From Zetia] Allergy muscle pain Verified 08/07/23 15:39 Djskyha-QJV-FfN Reductase Allergy muscle pain Verified 08/07/23 15:39 Inhibitor [Wpkbabu-Ddr-Yvt Reductase Inhibitor] carvedilol [From Coreg] AdvReac Intermediate dizziness Verified 08/07/23 15:39 Lexapro Allergy Unknown hyponatremi Uncoded 08/07/23 15:39 a PFSH Acute 2 PFSH: Medical History 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 CVA (cerebral vascular accident) Lacunar infarct Subclavian arterial stenosis Atherosclerotic heart disease of [place] coronary artery without angina pectoris Hyponatremia CAD (coronary artery disease) HTN (hypertension), benign Hyperlipidemia Bilateral carotid artery stenosis Peripheral vascular disease Chronic constipation Diabetes Surgical History History of colonoscopy Hx of CABG H/O: hysterectomy H/O tubal ligation History of knee surgery Family History Daughter Cancer Family/Other Cancer Lung disease Diabetes Grandmother Cancer Mother Dementia Stroke Brother Diabetes Denies family history of CAD (coronary artery disease) Clotting disorder Chronic kidney disease (CKD) Suicide Anesthesia complication Bleeding disorder Social History Smoking and tobacco/nicotine status: never used tobacco/nicotine Alcohol intake: never Substance/Drug Use: never Lives independently: Yes Vitals/I&O/Wt Last Vital Signs Temp 99.3 F 08/07/23 15:52 Pulse 65 08/07/23 19:40 Resp 21 H 08/07/23 19:40 BP 151/61 08/07/23 19:40 Pulse Ox 94 08/07/23 19:40 O2 Del Method Room Air 08/07/23 18:37 Weight last 48 hrs Weight 77.111 kg Physical Exam 2 Narrative: Awake and alert Euvolemic Currently on room air Hemodynamic stable Daughter at the bedside Extreme lethargic and fatigued Boot on left mandibular area improving S1, S2 Currently on room air Nonproductive cough Abdomen soft Lower extremity nonpitting edema Nonfocal neuroexam NIH 0 Data 08/07/23 15:24 08/07/23 15:24 A&P Assessment and plan (1) Anxiety: (2) HTN (hypertension), benign: (3) CHF (congestive heart failure): (4) CAD (coronary artery disease): Qualifiers: Coronary Disease-Associated Artery/Lesion type: [place] artery [place] vs. transplanted heart: [place] heart Associated angina: without angina Qualified Code(s): I25.10 - Atherosclerotic heart disease of [place] coronary artery without angina pectoris (5) Diabetes: Qualifiers: Diabetes mellitus type: type 2 Diabetes mellitus intermediate manager insulin use: with intermediate manager use Diabetes mellitus complication status: without complication Qualified Code(s): E11.9 - Type 2 diabetes mellitus without complications; Z79.4 - long-term (current) use of insulin (6) Dysuria: (7) UTI (urinary tract infection): (8) Weakness: (9) Dizziness: (10) Near syncope: (11) Fatigue: Plan Generalized weakness and fatigue Active UTI 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 Will request physical therapy Patient may need short-term rehab Patient and daughter are agreeable they would like to know other options They are considering local rehabs in [place] They would like to know financial contingencies Chronic kidney disease: Creatinine is stable Patient is diabetic we will start sliding scale along insulin Recent PCI with 2 stents placement continue dual antiplatelet therapy patient has not missed any of her medications, she is due for aspirin this evening UTI: Start ceftriaxone Full code goals of care discussed with the patient and her daughter Daughter is her medical DPOA Hypertension: Continue antihypertensive regimen Attestations 2 Medical Necessity Statement*: Anticipating discharge within 48 hours Diagnoses Anxiety F41.9 HTN (hypertension), benign I10 CHF (congestive heart failure) I50.9 Coronary artery disease involving [place] coronary artery of [place] heart without angina pectoris I25.10 Coronary Disease-Associated Artery/Lesion type: [place] artery [place] vs. transplanted heart: [place] heart Associated angina: without angina Type 2 diabetes mellitus without complication, with long-term current use of insulin E11.9; Z79.4 Diabetes mellitus type: type 2 Diabetes mellitus intermediate manager insulin use: with correction use Diabetes mellitus complication status: without complication Dysuria R30.0 UTI (urinary tract infection) N39.0 Weakness R53.1 Dizziness R42 Near syncope R55 Fatigue R53.83
[2023-08-07 21:11] LABS: Glucose Point of Care 109 mg/dL (70-110)
[2023-08-07] MEDS: cefTRIAXone 1,000 MG in sodium chloride 0.9% (plus) 50 ML 100 MG IV (21:18)
--- NOTE | 2023-08-07 23:02 | PC.NURSE ---
Hydralazine held earlier due to blood pressures in lower ranges. Upon recheck, blood pressure carissa to 179/83. Spoke with Dr. Kenny on phone and ordered hydralazine 50 mg PO once. Order was repeated and confirmed.
[2023-08-07] MEDS: hyDRALAzine 50 mg Tablet PO (23:11)
[2023-08-07] MEDS: ondansetron 2 mg/ML SDV 2 mL 4 MG IVP (23:23)
[2023-08-08] VITALS (7 sets, daily range): BP systolic 105–160; BP diastolic 61–80; PULSE 69–75; RESP 12–24; TEMP 36.8–37.2; O2SAT 93–95
[2023-08-08 04:06] LABS: Basophils % 0.2 %; Eosinophils # 0.1 10^3/uL (0.0-0.8); Eosinophils % 2.5 %; Hematocrit 31.9 % (36-47); Lymphocytes # 0.9 10^3/uL (0.8-4.8); Lymphocytes % 22.1 %; Mean Corpuscular HGB Conc 32.6 g/dL (30-55); Mean Corpuscular Volume 79.8 fl (85-98); Mean Platelet Volume 9.7 fL (7.4-10.4); Monocytes # 0.6 10^3/uL (0.2-0.9); Monocytes % 15.7 %; Neutrophils # 2.41 10^3/uL (1.8-7.7); Nucleated Red Blood Cells % 0 %; Platelet Count 267 10^3/cmm (157-399); Red Cell Distribution Width 14.8 % (12.1-15.1); White Blood Count 4.08 10^3/uL (3.29-11.43)
[2023-08-08 04:29] LABS: Alanine Aminotransferase 26 U/L (0-33); Albumin Level 3.1 g/dL (3.5-5.2); Alkaline Phosphatase 82 U/L (35-105); Blood Urea Nitrogen 25 mg/dL (8-23); Calcium 8.7 mg/dL (8.5-10.5); Carbon Dioxide 23 mmol/L (22-29); Chloride 101 mmol/L (98-107); Globulin 2.8 g/dL (1.3-4.6); Glucose 156 mg/dL (65-115); Magnesium 1.7 mg/dL (1.7-2.3); Osmolality Calculated 284 mOsm/kg (285-295); Sodium 133 mmol/L (136-145); Total Bilirubin 0.2 mg/dL (0.15-1.2); Total Protein 5.9 g/dL (6.6-8.7)
[2023-08-08 04:30] LABS: Anion Gap 13.6 (5-19); Potassium 4.6 mmol/L (3.5-5.1)
[2023-08-08 04:31] LABS: Aspartate Amino Transferase 26 U/L (0-32)
[2023-08-08 05:48] LABS: Glucose Point of Care 183 mg/dL (70-110)
[2023-08-08] MEDS: heparin 5,000 unit/mL INJ 1 mL 5000 UNIT SUBCUT (05:50)
[2023-08-08] MEDS: losartan 50 mg Tablet 100 MG PO (05:50)
[2023-08-08] MEDS: insulin glargine 100 units/1 mL 10 UNIT SUBCUT (07:22)
--- NOTE | 2023-08-08 07:45 | PC.PHAR ---
PTS DAUGHTER ADDISON [phone] TAKES CARE OF PTS MEDICATIONS- ADDISON VERIFIED MEDICATIONS OVER THE PHONE
[2023-08-08] MEDS: aspirin 81 mg EC Tablet PO (09:41)
[2023-08-08] MEDS: ALPRAZolam 0.5 mg Tablet PO (09:41)
[2023-08-08] MEDS: FUROsemide 20 mg Tablet PO (09:42)
[2023-08-08] MEDS: clopidogrel 75 mg Tablet PO (09:42)
[2023-08-08] MEDS: hyDRALAzine 50 mg Tablet PO (09:42)
[2023-08-08] MEDS: amlodipine 10 mg Tablet PO (09:42)
[2023-08-08] MEDS: pantoprazole DR 40 mg Tablet PO (09:42)
[2023-08-08 10:04] LABS: Glucose Point of Care 248 mg/dL (70-110)
[2023-08-08] MEDS: insulin lispro 100 unit/1 mL SUBCUT ×2 (10:16→12:49)
[2023-08-08 11:03] LABS: Glucose Point of Care 263 mg/dL (70-110)
--- NOTE | 2023-08-08 14:04 | P.DS_ITS ---
Discharge Providers Date of Admission: 08/07/23 20:38 Date of Discharge: August 08, 2023 Attending Provider at Admission: Anastasia Mena MD Attending Provider at Discharge: Anastasia Mena MD Primary Care Provider: Dallas Lorenzana MD Diagnoses at Discharge Discharge Diagnosis (1) Anxiety: Status: Acute (2) HTN (hypertension), benign: Status: Acute (3) CHF (congestive heart failure): Status: Acute (4) CAD (coronary artery disease): Status: Acute Qualifiers: Associated angina: without angina Coronary Disease-Associated Artery/Lesion type: [place] artery [place] vs. transplanted heart: [place] heart Qualified Code(s): I25.10 - Atherosclerotic heart disease of [place] coronary artery without angina pectoris (5) Diabetes: Status: Acute Qualifiers: Diabetes mellitus complication status: without complication Diabetes mellitus chcf insulin use: with chcf use Diabetes mellitus type: type 2 Qualified Code(s): E11.9 - Type 2 diabetes mellitus without complications; Z79.4 - [facility] (current) use of insulin (6) Dysuria: Status: Resolved (7) UTI (urinary tract infection): Status: Acute (8) Weakness: Status: Resolved (9) Dizziness: Status: Resolved (10) Near syncope: Status: Resolved (11) Fatigue: Status: Resolved Reason for Visit Reason for Visit: Weakness, Covid + Hospital Course Hospital Course Patient was discharged 1 day prior and came back to the hospital for weakness and unable to take care of herself. She told ER physician that she was willing to go to rehab and therefore was admitted. When seen by me she was back to her normal self back to baseline. In fact family was wanting to know why she was admitted and why we were holding her here . They are not sure what may have happened. Patient has been lightheaded and weak at home. Blood pressure medications were adjusted and she was sent home discharged in stable condition. At this point she is asymptomatic. Amlodipine was held at this point. She was seen by physical therapy and home health was suggested home physical therapy referral was placed. Patient discharged home in stable condition alongside family. Physical Exam Narrative: Awake and alert Euvolemic Currently on room air Hemodynamic stable Clear to auscultation bilaterally no wheezes no rhonchi S1, S2 Currently on room air Nonproductive cough Abdomen soft Lower extremity nonpitting edema Nonfocal neuroexam NIH 0 Discharge Data Studies Completed and Pending Completed Studies During Hospitalization Category Date Time Status XR chest 1V portable [id number] Stat Exams 08/07/23 15:35 Completed Pending at discharge Category Date Time Status Blood Cultures ([facility]) Routine Lab 08/07/23 18:56 Received Blood Cultures ([facility]) Routine Lab 08/07/23 18:56 Received Sputum Culture and Gram Stain Stat Lab 08/07/23 18:24 Received Urine Culture Stat Lab 08/07/23 16:14 Received Laboratory Results WBC 4.08 10^3/uL (3.29-11.43) 08/08/23 04:00 RBC 4.00 10^6/uL (3.85-5.65) 08/08/23 04:00 Hgb 10.40 g/dL (11.27-16.99) L 08/08/23 04:00 Hct 31.9 % (36-47) L 08/08/23 04:00 MCV 79.8 fl (85-98) L 08/08/23 04:00 MCH 26.0 pg (27-33) L 08/08/23 04:00 MCHC 32.6 g/dL (30-55) 08/08/23 04:00 RDW 14.8 % (12.1-15.1) 08/08/23 04:00 Plt Count 267 10^3/cmm (157-399) 08/08/23 04:00 MPV 9.7 fL (7.4-10.4) 08/08/23 04:00 Neut % (Auto) 59.0 % 08/08/23 04:00 Lymph % (Auto) 22.1 % 08/08/23 04:00 [place] % (Auto) 15.7 % 08/08/23 04:00 Eos % (Auto) 2.5 % 08/08/23 04:00 Baso % (Auto) 0.2 % 08/08/23 04:00 Neut # (Auto) 2.41 10^3/uL (1.8-7.7) 08/08/23 04:00 Lymph # (Auto) 0.9 10^3/uL (0.8-4.8) 08/08/23 04:00 [place] # (Auto) 0.6 10^3/uL (0.2-0.9) 08/08/23 04:00 Eos # (Auto) 0.1 10^3/uL (0.0-0.8) 08/08/23 04:00 Baso # (Auto) 0.0 10^3/uL (0.0-0.1) 08/08/23 04:00 Nucleated RBC % (auto) 0 % 08/08/23 04:00 Nucleated RBCs # 0.0 /100WBC 08/08/23 04:00 Sodium 133 mmol/L (136-145) L 08/08/23 04:00 Potassium 4.6 mmol/L (3.5-5.1) 08/08/23 04:00 Chloride 101 mmol/L (98-107) 08/08/23 04:00 Carbon Dioxide 23 mmol/L (22-29) 08/08/23 04:00 Anion Gap 13.6 (5-19) 08/08/23 04:00 BUN 25 mg/dL (8-23) H 08/08/23 04:00 Creatinine 0.9 mg/dL (0.5-0.9) 08/08/23 04:00 GFR Calculation Not Reportable 08/08/23 04:00 Glucose 156 mg/dL (65-115) H 08/08/23 04:00 POC Glucose 263 mg/dL (70-110) H 08/08/23 10:37 Calculated Osmolality 284 mOsm/kg (285-295) L 08/08/23 04:00 Lactic Acid 1.4 mmol/L (0.5-2.2) 08/07/23 15:24 Calcium 8.7 mg/dL (8.5-10.5) 08/08/23 04:00 Magnesium 1.7 mg/dL (1.7-2.3) 08/08/23 04:00 Total Bilirubin 0.2 mg/dL (0.15-1.2) 08/08/23 04:00 AST 26 U/L (0-32) 08/08/23 04:00 ALT 26 U/L (0-33) 08/08/23 04:00 Alkaline Phosphatase 82 U/L (35-105) 08/08/23 04:00 NT-Pro-B Natriuret Pep 36265 pg/mL (0-450) H 08/07/23 15:24 Total Protein 5.9 g/dL (6.6-8.7) L 08/08/23 04:00 Albumin 3.1 g/dL (3.5-5.2) L 08/08/23 04:00 Globulin 2.8 g/dL (1.3-4.6) 08/08/23 04:00 Urine Color Straw (Yellow) 08/07/23 16:14 Urine Appearance Hazy (CLEAR) A 08/07/23 16:14 Urine pH 6.5 (5-7) 08/07/23 16:14 Ur Specific [place] 1.005 (1.005-1.030) 08/07/23 16:14 Urine Protein Neg (Negative) 08/07/23 16:14 Urine Glucose (UA) Norm (Normal) 08/07/23 16:14 Urine Ketones Negative (Negative) 08/07/23 16:14 Urine Blood Neg (Negative) 08/07/23 16:14 Urine Nitrate Negative (Negative) 08/07/23 16:14 Urine Bilirubin Neg (Negative) 08/07/23 16:14 Urine Urobilinogen Norm mg/dL (Negative) 08/07/23 16:14 Ur Leukocyte Esterase Negative (Negative) 08/07/23 16:14 Urine RBC 0-4 /hpf (0-2) H 08/07/23 16:14 Urine WBC 5-10 /hpf (0-5) H 08/07/23 16:14 Ur Squamous Epith Cells 10-15 /hpf (0-5) H 08/07/23 16:14 Ur Transition Epith Cell 0-4 /hpf 08/07/23 16:14 Amorphous Sediment Not Reportable 08/07/23 16:14 Urine Bacteria Trace /hpf (NONE) 08/07/23 16:14 Fine Granular Casts 10-15 /lpf H 08/07/23 16:14 Urine Mucus Trace /hpf 08/07/23 16:14 Vitals Last Vital Signs Temp 98.3 F 08/08/23 12:00 Pulse 69 08/08/23 12:00 Resp 18 08/08/23 12:00 BP 105/61 08/08/23 12:00 Pulse Ox 93 08/08/23 12:00 O2 Del Method Room Air 08/08/23 07:30 Discharge Plan Discharge Patient Disposition: Home Condition: Stable Prescriptions: Continued aspirin [Adult Low Dose Aspirin] 81 mg tablet,delayed release (DR/EC) 81 mg PO DAILY clopidogrel [Plavix] 75 mg tablet 75 mg PO DAILY Qty: 30 11RF (DME) blood-glucose meter [Accu-Chek Guide Glucose Meter] [facility] [place] See Rx Instructions .Route Qty: 1 11RF Rx Instructions: check twice a day lactulose 10 gram/15 mL solution 10 g PO BID PRN (Reason: Constipation) Qty: 473 3RF furosemide 20 mg tablet 20 mg PO DAILY Qty: 90 3RF insulin glargine [Lantus U-100 Insulin] 100 unit/mL solution 15 unit SUBCUT QAM Qty: 10 11RF clonidine HCl 0.1 mg tablet 0.1 mg PO TID PRN (Reason: hypertensive emergency) Qty: 30 11RF Rx Instructions: take for SBP >180 (DME) pen needle, diabetic 32 gauge x 5/32 needle See Rx Instructions .ROUTE .COMPLEX Qty: 50 11RF Dose Instruction: USE DIRECTED TWICE DAILY Rx Instructions: USE DIRECTED TWICE DAILY omeprazole 40 mg capsule,delayed release(DR/EC) 40 mg PO DAILY Qty: 90 3RF insulin asp prt-insulin aspart [Novolog Mix 70-30FlexPen U-100] 100 unit/mL (70-30) insulin pen See Rx Instructions SUBCUT BID Qty: 15 11RF Rx Instructions: 15 in AM and 8 in PM subcutaneously twice a day; alprazolam 0.5 mg tablet 0.5 mg PO BID Qty: 60 3RF (DME) True Metrix Glucose Test Strip Strip See Rx Instructions .Route Qty: 100 11RF Rx Instructions: check twice a day losartan 100 mg tablet 100 mg PO QAM hydralazine 50 mg tablet 50 mg PO TID Qty: 90 0RF Discontinued amlodipine 10 mg Tablet 10 mg PO DAILY Qty: 30 0RF Discharge Orders: Discharge Order (Routine); Ordered 08/08/23 Ordered By: Anastasia Mena Referrals: Dallas Lorenzana MD [Primary Care Provider] - 4-7 days (We have notified your physician's clinic of the need for a follow-up appointment to be scheduled. If you have not heard from them within the next 2 business days, please call them directly. ) Discharge Diet: Cardiac and Diabetic Discharge Activity: Resume usual activity and As per PT/OT instructions Patient Instructions: Urinary Tract Infection in Women (DC), SARS (Severe Acute Respiratory Syndrome) (DC), Opioid Safety Discharge Attestations Time Spent in Discharge Care*: less than 30 min Quality Metrics Clinical Quality Measures [ No reported AMI, CVA or VTE this stay] Coding Level of Care Code Acute Code for Chg Fwd Diagnoses Anxiety F41.9 HTN (hypertension), benign I10 CHF (congestive heart failure) I50.9 Coronary artery disease involving [place] coronary artery of [place] heart without angina pectoris I25.10 Associated angina: without angina Coronary Disease-Associated Artery/Lesion type: [place] artery [place] vs. transplanted heart: [place] heart Type 2 diabetes mellitus without complication, with long-term current use of insulin E11.9; Z79.4 Diabetes mellitus complication status: without complication Diabetes mellitus chcf insulin use: with terminologist use Diabetes mellitus type: type 2 Dysuria R30.0 UTI (urinary tract infection) N39.0 Weakness R53.1 Dizziness R42 Near syncope R55 Fatigue R53.83
== END 2023-08-08 15:22 | disposition home health service (06) ==
LOC: ER 17:33 → ER IP 08-08 01:18 → MEDSURG 08-08 06:39 → ER IP 08-08 07:34 → MEDSURG 08-08 08:16
PROVIDERS: Admitting Provider Internal Medicine; Emergency Provider Emergency Medicine; PCP Family Medicine; Visit Provider Internal Medicine
DX: R53.1 Weakness (principal); R53.83 Other fatigue; R55 Syncope and collapse; R42 Dizziness and giddiness; N39.0 Urinary tract infection, site not specified; R30.0 Dysuria; E11.9 Type 2 diabetes mellitus without complications; Z79.4 Long term (current) use of insulin; I25.10 Atherosclerotic heart disease of native coronary artery without angina pectoris; I11.0 Hypertensive heart disease with heart failure; I50.9 Heart failure, unspecified; Z79.82 Long term (current) use of aspirin; Z86.16 Personal history of COVID-19
CPT/HCPCS: 36415; 36416; 71045; 80053; 81001; 82962; 83605; 83735; 83880; 85025; 87040; 87070; 87086; 87205; 93005; 96372; 97110; 97161; 97165; 99285; G0378; J0696; J1644; J1815; J2405

== ENCOUNTER 2023-08-11 16:20 | Emergency (ER) | payer MEDICARE, MEDICAID, SELFPAY ==
[2023-08-11 16:24] VITALS: BP 184/78; PULSE 75; RESP 16; TEMP 37.2; O2SAT 96; BMI 27.1
[2023-08-11 17:13] LABS: Basophils % 0.4 %; Eosinophils # 0.2 10^3/uL (0.0-0.8); Eosinophils % 4.3 %; Hematocrit 31.5 % (36-47); Lymphocytes % 36.8 %; Mean Corpuscular HGB Conc 32.7 g/dL (30-55); Mean Corpuscular Hemoglobin 26.3 pg (27-33); Mean Corpuscular Volume 80.4 fl (85-98); Mean Platelet Volume 9.6 fL (7.4-10.4); Monocytes # 0.5 10^3/uL (0.2-0.9); Monocytes % 9.8 %; Neutrophils # 2.57 10^3/uL (1.8-7.7); Neutrophils % 48.5 %; Nucleated Red Blood Cells % 0 %; Platelet Count 326 10^3/cmm (157-399); Red Blood Count 3.92 10^6/uL (3.85-5.65); Red Cell Distribution Width 14.8 % (12.1-15.1)
[2023-08-11 17:34] LABS: Alanine Aminotransferase 17 U/L (0-33); Albumin Level 3.6 g/dL (3.5-5.2); Alkaline Phosphatase 87 U/L (35-105); Anion Gap 16.1 (5-19); Aspartate Amino Transferase 17 U/L (0-32); Blood Urea Nitrogen 16 mg/dL (8-23); Calcium 8.7 mg/dL (8.5-10.5); Carbon Dioxide 23 mmol/L (22-29); Chloride 97 mmol/L (98-107); Globulin 2.9 g/dL (1.3-4.6); Glucose 186 mg/dL (65-115); Osmolality Calculated 280 mOsm/kg (285-295); Potassium 4.1 mmol/L (3.5-5.1); Sodium 132 mmol/L (136-145); Total Bilirubin 0.3 mg/dL (0.15-1.2); Total Protein 6.5 g/dL (6.6-8.7)
--- NOTE | 2023-08-11 18:05 | W.ED.RECABL ---
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 CVA (cerebral vascular accident) Lacunar infarct Subclavian arterial stenosis Atherosclerotic heart disease of [place] coronary artery without angina pectoris Hyponatremia CAD (coronary artery disease) HTN (hypertension), benign Hyperlipidemia Bilateral carotid artery stenosis Peripheral vascular disease Chronic constipation Diabetes Surgical History History of colonoscopy Hx of CABG H/O: hysterectomy H/O tubal ligation History of knee surgery Family History Daughter Cancer Family/Other Cancer Lung disease Diabetes Grandmother Cancer Mother Dementia Stroke Brother Diabetes Denies family history of CAD (coronary artery disease) Clotting disorder Chronic kidney disease (CKD) Suicide Anesthesia complication Bleeding disorder Social History Smoking and tobacco/nicotine status: never used tobacco/nicotine Alcohol intake: never Substance/Drug Use: never Lives independently: Yes Course Vital Signs: Vital signs: Vital Signs Temperature 98.9 F 08/11/23 16:24 Pulse Rate 75 08/11/23 16:24 Respiratory Rate 16 08/11/23 16:24 Blood Pressure 184/78 08/11/23 16:24 Pulse Oximetry 96 08/11/23 16:24 Oxygen Delivery Me thod Room Air 08/11/23 16:24 MDM - Recheck/Abnormal Lab/Rx Lab Data 08/11/23 16:59 08/11/23 16:59 Laboratory Results WBC 5.30 10^3/uL (3.29-11.43) 08/11/23 16:59 RBC 3.92 10^6/uL (3.85-5.65) 08/11/23 16:59 Hgb 10.30 g/dL (11.27-16.99) L 08/11/23 16:59 Hct 31.5 % (36-47) L 08/11/23 16:59 MCV 80.4 fl (85-98) L 08/11/23 16:59 MCH 26.3 pg (27-33) L 08/11/23 16:59 MCHC 32.7 g/dL (30-55) 08/11/23 16:59 RDW 14.8 % (12.1-15.1) 08/11/23 16:59 Plt Count 326 10^3/cmm (157-399) 08/11/23 16:59 MPV 9.6 fL (7.4-10.4) 08/11/23 16:59 Neut % (Auto) 48.5 % 08/11/23 16:59 Lymph % (Auto) 36.8 % 08/11/23 16:59 [place] % (Auto) 9.8 % 08/11/23 16:59 Eos % (Auto) 4.3 % 08/11/23 16:59 Baso % (Auto) 0.4 % 08/11/23 16:59 Neut # (Auto) 2.57 10^3/uL (1.8-7.7) 08/11/23 16:59 Lymph # (Auto) 2.0 10^3/uL (0.8-4.8) 08/11/23 16:59 [place] # (Auto) 0.5 10^3/uL (0.2-0.9) 08/11/23 16:59 Eos # (Auto) 0.2 10^3/uL (0.0-0.8) 08/11/23 16:59 Baso # (Auto) 0.0 10^3/uL (0.0-0.1) 08/11/23 16:59 Nucleated RBC % (auto) 0 % 08/11/23 16:59 Nucleated RBCs # 0.0 /100WBC 08/11/23 16:59 Sodium 132 mmol/L (136-145) L 08/11/23 16:59 Potassium 4.1 mmol/L (3.5-5.1) 08/11/23 16:59 Chloride 97 mmol/L (98-107) L 08/11/23 16:59 Carbon Dioxide 23 mmol/L (22-29) 08/11/23 16:59 Anion Gap 16.1 (5-19) 08/11/23 16:59 BUN 16 mg/dL (8-23) 08/11/23 16:59 Creatinine 0.8 mg/dL (0.5-0.9) 08/11/23 16:59 GFR Calculation Not Reportable 08/11/23 16:59 Glucose 186 mg/dL (65-115) H 08/11/23 16:59 Calculated Osmolality 280 mOsm/kg (285-295) L 08/11/23 16:59 Calcium 8.7 mg/dL (8.5-10.5) 08/11/23 16:59 Total Bilirubin 0.3 mg/dL (0.15-1.2) 08/11/23 16:59 AST 17 U/L (0-32) 08/11/23 16:59 ALT 17 U/L (0-33) 08/11/23 16:59 Alkaline Phosphatase 87 U/L (35-105) 08/11/23 16:59 Total Protein 6.5 g/dL (6.6-8.7) L 08/11/23 16:59 Albumin 3.6 g/dL (3.5-5.2) 08/11/23 16:59 Globulin 2.9 g/dL (1.3-4.6) 08/11/23 16:59 Discharge Plan Discharge Condition: Stable Prescriptions: No Action aspirin [Adult Low Dose Aspirin] 81 mg tablet,delayed release (DR/EC) 81 mg PO DAILY clopidogrel [Plavix] 75 mg tablet 75 mg PO DAILY Qty: 30 11RF (DME) blood-glucose meter [Accu-Chek Guide Glucose Meter] Misc See Rx Instructions .Route Qty: 1 11RF Rx Instructions: check twice a day lactulose 10 gram/15 mL solution 10 g PO BID PRN (Reason: Constipation) Qty: 473 3RF furosemide 20 mg tablet 20 mg PO DAILY Qty: 90 3RF insulin glargine [Lantus U-100 Insulin] 100 unit/mL solution 15 unit SUBCUT QAM Qty: 10 11RF clonidine HCl 0.1 mg tablet 0.1 mg PO TID PRN (Reason: hypertensive emergency) Qty: 30 11RF Rx Instructions: take for SBP >180 (DME) pen needle, diabetic 32 gauge x 5/32 needle See Rx Instructions .ROUTE .COMPLEX Qty: 50 11RF Dose Instruction: USE DIRECTED TWICE DAILY Rx Instructions: USE DIRECTED TWICE DAILY omeprazole 40 mg capsule,delayed release(DR/EC) 40 mg PO DAILY Qty: 90 3RF insulin asp prt-insulin aspart [Novolog Mix 70-30FlexPen U-100] 100 unit/mL (70-30) insulin pen See Rx Instructions SUBCUT BID Qty: 15 11RF Rx Instructions: 15 in AM and 8 in PM subcutaneously twice a day; alprazolam 0.5 mg tablet 0.5 mg PO BID Qty: 60 3RF (DME) True Metrix Glucose Test Strip Strip See Rx Instructions .Route Qty: 100 11RF Rx Instructions: check twice a day losartan 100 mg tablet 100 mg PO QAM hydralazine 50 mg tablet 50 mg PO TID Qty: 90 0RF Referrals: Dallas Lorenzana MD [Primary Care Provider] - Coding Level of Care Code ED [employer]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
--- NOTE | 2023-08-11 18:06 | W.ED.RECABL ---
HPI - Recheck/Abnormal Lab/Rx General: Chief Complaint: Recheck/Abnormal Lab/Rx Stated Complaint: sent back due to culture Time Seen by Provider: 08/11/23 17:17 Source: patient Mode of arrival: ambulatory Limitations: no limitations History of Present Illness: 87yo female presents with family after receiving a call from the hospital regarding positive blood cultures. Patient states she was told that she needed to come to the emergency department and she would likely be admitted for 2 days. Patient states she has no complaints. She states that she has had no fever, chills, vomiting, diarrhea, difficulty breathing, shortness of breath, chest pain. Description of abnormal result: Positive blood cultures Review of Systems Const: Denies: fever(s), chills or fatigue ENMT: Denies: throat pain or odynophagia Card: Denies: chest pain Resp: Denies: dyspnea GI: Denies: abdominal pain, vomiting or diarrhea : Denies: difficulty voiding PFSH ED PFSH: Medical History 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 CVA (cerebral vascular accident) Lacunar infarct Subclavian arterial stenosis Atherosclerotic heart disease of [place] coronary artery without angina pectoris Hyponatremia CAD (coronary artery disease) HTN (hypertension), benign Hyperlipidemia Bilateral carotid artery stenosis Peripheral vascular disease Chronic constipation Diabetes Surgical History History of colonoscopy Hx of CABG H/O: hysterectomy H/O tubal ligation History of knee surgery Family History Daughter Cancer Family/Other Cancer Lung disease Diabetes Grandmother Cancer Mother Dementia Stroke Brother Diabetes Denies family history of CAD (coronary artery disease) Clotting disorder Chronic kidney disease (CKD) Suicide Anesthesia complication Bleeding disorder Social History Smoking and tobacco/nicotine status: never used tobacco/nicotine Alcohol intake: never Substance/Drug Use: never Lives independently: Yes Physical Exam Narrative: EXAM NARRATIVE: Patient is sitting upright in a vertical flow chair in no acute distress. She is able to answer questions with no difficulty. Family is at chairside Const: COMMON NORMALS: no acute distress and patient oriented x3 GENERAL APPEARANCE: cooperative, comfortable and well kempt HENMT: COMMON NORMALS: normocephalic and Normal external nose present HEAD & SCALP: normocephalic FACE & SINUS: normal facial exam NOSE: Normal external nose present Eye: GENERAL EYE: appearance normal, both eyes and all related structures Neck/C-Spine: COMMON NORMALS: full ROM Resp: COMMON NORMALS: normal respiratory effort, No retractions and clear to auscultation bilaterally AUSCULTATION: clear to auscultation bilaterally Cardio: COMMON NORMALS: regular rate and regular rhythm RATE: regular rate RHYTHM: regular rhythm : COMMON NORMALS: Yes no CVA tenderness BLADDER/KIDNEY EXAM: Yes no CVA tenderness Back/Pelvis: COMMON NORMALS: no CVA tenderness Extremity: NARRATIVE EXTREMITY EXAM: MAEW Neuro: COMMON NORMALS: patient oriented x3 Psych: APPEARANCE: Yes well kempt Course Vital Signs: Vital signs: Vital Signs Temperature 98.9 F 08/11/23 16:24 Pulse Rate 75 08/11/23 16:24 Respiratory Rate 16 08/11/23 16:24 Blood Pressure 184/78 08/11/23 16:24 Pulse Oximetry 96 08/11/23 16:24 Oxygen Delivery Me thod Room Air 08/11/23 16:24 MDM - Recheck/Abnormal Lab/Rx Medical Decision Making 87yo female here with family after being called to return to the hospital due to positive blood cultures. Patient has no complaints at this time and only return to the emergency department due to the call. CBC is grossly unremarkable. White blood cell count noted to be 5.3. Chemistries are also grossly unremarkable. Reviewed previous blood cultures from her admission on 08/08/2022. 1 set of blood cultures was completely negative. Set to did indicate gram-positive cocci and Staph aureus. Given that the first set was negative and the patient is asymptomatic, we believe this may be contamination of the second set. Discussed these findings with the patient and her family. Also discussed with ER attending. We will go forth with discharge as patient does not need to be admitted for the contaminated blood culture. Patient and family state understanding. They have no further questions at this time. Medical Records I reviewed the patient's medical records. Lab Data I reviewed the patient's lab results. 08/11/23 16:59 01/08/24 16:59 Laboratory Results WBC 5.30 10^3/uL (3.29-11.43) 08/11/23 16:59 RBC 3.92 10^6/uL (3.85-5.65) 08/11/23 16:59 Hgb 10.30 g/dL (11.27-16.99) L 08/11/23 16:59 Hct 31.5 % (36-47) L 08/11/23 16:59 MCV 80.4 fl (85-98) L 08/11/23 16:59 MCH 26.3 pg (27-33) L 08/11/23 16:59 MCHC 32.7 g/dL (30-55) 08/11/23 16:59 RDW 14.8 % (12.1-15.1) 08/11/23 16:59 Plt Count 326 10^3/cmm (157-399) 08/11/23 16:59 MPV 9.6 fL (7.4-10.4) 08/11/23 16:59 Neut % (Auto) 48.5 % 08/11/23 16:59 Lymph % (Auto) 36.8 % 08/11/23 16:59 [place] % (Auto) 9.8 % 08/11/23 16:59 Eos % (Auto) 4.3 % 08/11/23 16:59 Baso % (Auto) 0.4 % 08/11/23 16:59 Neut # (Auto) 2.57 10^3/uL (1.8-7.7) 08/11/23 16:59 Lymph # (Auto) 2.0 10^3/uL (0.8-4.8) 08/11/23 16:59 [place] # (Auto) 0.5 10^3/uL (0.2-0.9) 08/11/23 16:59 Eos # (Auto) 0.2 10^3/uL (0.0-0.8) 08/11/23 16:59 Baso # (Auto) 0.0 10^3/uL (0.0-0.1) 08/11/23 16:59 Nucleated RBC % (auto) 0 % 08/11/23 16:59 Nucleated RBCs # 0.0 /100WBC 08/11/23 16:59 Sodium 132 mmol/L (136-145) L 08/11/23 16:59 Potassium 4.1 mmol/L (3.5-5.1) 08/11/23 16:59 Chloride 97 mmol/L (98-107) L 08/11/23 16:59 Carbon Dioxide 23 mmol/L (22-29) 08/11/23 16:59 Anion Gap 16.1 (5-19) 08/11/23 16:59 BUN 16 mg/dL (8-23) 08/11/23 16:59 Creatinine 0.8 mg/dL (0.5-0.9) 08/11/23 16:59 GFR Calculation Not Reportable 08/11/23 16:59 Glucose 186 mg/dL (65-115) H 08/11/23 16:59 Calculated Osmolality 280 mOsm/kg (285-295) L 08/11/23 16:59 Calcium 8.7 mg/dL (8.5-10.5) 08/11/23 16:59 Total Bilirubin 0.3 mg/dL (0.15-1.2) 08/11/23 16:59 AST 17 U/L (0-32) 08/11/23 16:59 ALT 17 U/L (0-33) 08/11/23 16:59 Alkaline Phosphatase 87 U/L (35-105) 08/11/23 16:59 Total Protein 6.5 g/dL (6.6-8.7) L 08/11/23 16:59 Albumin 3.6 g/dL (3.5-5.2) 08/11/23 16:59 Globulin 2.9 g/dL (1.3-4.6) 08/11/23 16:59 Previous blood cultures, urine culture, and respiratory culture from 08/07/22 reviewed No radiology studies performed this visit Discharge Plan Discharge Patient Disposition: Home Clinical Impression: Alteration in lab values Condition: Stable Prescriptions: No Action aspirin [Adult Low Dose Aspirin] 81 mg tablet,delayed release (DR/EC) 81 mg PO DAILY clopidogrel [Plavix] 75 mg tablet 75 mg PO DAILY Qty: 30 11RF (DME) blood-glucose meter [Accu-Chek Guide Glucose Meter] Misc See Rx Instructions .Route Qty: 1 11RF Rx Instructions: check twice a day lactulose 10 gram/15 mL solution 10 g PO BID PRN (Reason: Constipation) Qty: 473 3RF furosemide 20 mg tablet 20 mg PO DAILY Qty: 90 3RF insulin glargine [Lantus U-100 Insulin] 100 unit/mL solution 15 unit SUBCUT QAM Qty: 10 11RF clonidine HCl 0.1 mg tablet 0.1 mg PO TID PRN (Reason: hypertensive emergency) Qty: 30 11RF Rx Instructions: take for SBP >180 (DME) pen needle, diabetic 32 gauge x 5/32 needle See Rx Instructions .ROUTE .COMPLEX Qty: 50 11RF Dose Instruction: USE DIRECTED TWICE DAILY Rx Instructions: USE DIRECTED TWICE DAILY omeprazole 40 mg capsule,delayed release(DR/EC) 40 mg PO DAILY Qty: 90 3RF insulin asp prt-insulin aspart [Novolog Mix 70-30FlexPen U-100] 100 unit/mL (70-30) insulin pen See Rx Instructions SUBCUT BID Qty: 15 11RF Rx Instructions: 15 in AM and 8 in PM subcutaneously twice a day; alprazolam 0.5 mg tablet 0.5 mg PO BID Qty: 60 3RF (DME) True Metrix Glucose Test Strip Strip See Rx Instructions .Route Qty: 100 11RF Rx Instructions: check twice a day losartan 100 mg tablet 100 mg PO QAM hydralazine 50 mg tablet 50 mg PO TID Qty: 90 0RF Discharge Orders: Discharge ED (Routine); Ordered 08/11/23 Ordered By: Tone Montemayor Referrals: Dallas Lorenzana MD [Primary Care Provider] - Discharge Diet: Usual diet Discharge Activity: Resume usual activity Activity Restrictions/Additional Instructions: Your labs today were normal We believe the positive blood culture may have been a contamination as your other blood culture was negative Follow-up with your doctor, call in 1 to 2 days with an update of symptoms and to discuss a recheck Return to the emergency department if any rapid worsening symptoms and as needed 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
[2023-08-11 18:41] VITALS: BP 184/74; PULSE 76; RESP 16; O2SAT 96
== END 2023-08-11 18:43 | disposition home or self-care (01) ==
PROVIDERS: Emergency Medicine; Emergency Provider Nurse Practitioner; PCP Family Medicine
DX: Z00.00 Encounter for general adult medical examination without abnormal findings (principal); Z79.82 Long term (current) use of aspirin; Z79.02 Long term (current) use of antithrombotics/antiplatelets; Z79.4 Long term (current) use of insulin; Z95.1 Presence of aortocoronary bypass graft; Z86.73 Personal history of transient ischemic attack (TIA), and cerebral infarction without residual deficits; I25.10 Atherosclerotic heart disease of native coronary artery without angina pectoris; I10 Essential (primary) hypertension; E78.5 Hyperlipidemia, unspecified; E11.9 Type 2 diabetes mellitus without complications
CPT/HCPCS: 80053; 85025; 99283

== ENCOUNTER → 2023-08-13 12:50 | Outpatient (BNVA) | payer MEDICARE, MEDICAID, SELFPAY | PROVIDERS: PCP Family Medicine; Visit Provider Family Medicine | DX: I10 Essential (primary) hypertension (principal) | CPT/HCPCS: 80053; 85025 ==

== ENCOUNTER → 2023-10-30 10:26 | Outpatient (BNVA) | payer MEDICARE, MEDICAID, SELFPAY | PROVIDERS: PCP Family Medicine; Visit Provider Family Medicine | DX: I10 Essential (primary) hypertension (principal); I50.9 Heart failure, unspecified; I25.10 Atherosclerotic heart disease of native coronary artery without angina pectoris; E78.2 Mixed hyperlipidemia; E11.9 Type 2 diabetes mellitus without complications; Z79.4 Long term (current) use of insulin | CPT/HCPCS: 80053; 80061; 83036 ==

== ENCOUNTER → 2023-11-13 10:38 | Outpatient (BNVA) | payer MEDICARE, MEDICAID, SELFPAY | PROVIDERS: PCP Family Medicine; Visit Provider Internal Medicine Cardiovascular Disease | DX: I25.118 Atherosclerotic heart disease of native coronary artery with other forms of angina pectoris (principal); I65.23 Occlusion and stenosis of bilateral carotid arteries; I11.0 Hypertensive heart disease with heart failure; I50.32 Chronic diastolic (congestive) heart failure; E78.2 Mixed hyperlipidemia | CPT/HCPCS: 99214 ==

== ENCOUNTER 2023-11-19 14:42 | Outpatient (CLI) | payer MEDICARE, MEDICAID, SELFPAY ==
--- NOTE | 2023-11-19 14:45 | USCV_ITS ---
Wilfrido Olga Age: 88 Gender: F : 1935 Exam Date: 11/19/2023 14:59 Ordering Phys: Greta Akers MD ([email or web address]) Technologist: R Exam Location[place] [facility] [place]ication: cca disease Risk Factors: Previous Vascular Surgery: Right Brachial BP: / Left Brachial BP: / Right Left Velocity (cm/s) Spectral Plaque Velocity (cm/s) Spectral Plaque Syst/Diast Broadening Syst/Diast Broadening 94.40/ 18.00 Prox CCA 91.70 / 13.20 140.60/30.10 Mid CCA 66.40 / 13.10 65.80/ 10.20 Hetro Distal CCA 80.10 / 16.20 Hetro 93.00/ 17.10 Hetro Prox ICA 94.30 / 37.50 Hetro 140.60/30.10 Mid ICA 60.60 / 20.40 82.50/ 23.10 Distal ICA 80.70 / 15.00 126.10 ECA 133.10 1.00 ICA/CCA 1.20 Antegrade Vertebral Antegrade 40.00/ 21.00 cm/s 36.00/ 17.00 cm/s Tri Subclavian Tri 96.10 102.0 0 FINDINGS Moderate plaques of the right bifurcation Elevated velocity in the right mid ICA Minimal plaques in the left bifurcation. Intimal thickening in the common carotid arteries bilaterally. Antegrade flow in the vertebral arteries bilaterally. Normal Doppler velocities in the external carotid and subclavian arteries CONCLUSIONS Moderate plaques at the right bifurcation and minimal plaques in the left bifurcation with the Doppler features suggesting less than 50% stenosis bilaterally Elevated velocity in the right mid ICA, could be related to tortuosity. No significant stenosis in the external carotid, vertebral and subclavian arteries, based on the above findings Dr Greta Akers MD [facility] (Electronically Signed) Final Date: 28 November 2023 23:40 S
== END 2023-11-19 14:43 | disposition home or self-care (01) ==
LOC: RAD 14:43
PROVIDERS: PCP Family Medicine; Visit Provider Internal Medicine Cardiovascular Disease
DX: I65.23 Occlusion and stenosis of bilateral carotid arteries (principal)
CPT/HCPCS: 93880

== ENCOUNTER 2024-01-09 09:31 | Outpatient (CLI) | payer MEDICARE, MEDICAID, SELFPAY ==
[2024-01-09] MEDS: iohexol 350 mg/mL 500 mL Btl (per mL) PO (10:17)
--- NOTE | 2024-01-09 10:30 | CT_ITS ---
WS: [id number] CT ABDOMEN AND PELVIS WITH CONTRAST HISTORY: abd pain TECHNIQUE: Imaging performed of the abdomen and pelvis with IV contrast. Single phase imaging of the abdomen. Coronal and sagittal reformats are submitted. All CT scans at [facility] use at [address] one of these dose optimization techniques: automated exposure control; mA and/or kV adjustment per patient size (includes targeted exams where dose is matched to clinical indication); or iterative re construction. IV CONTRAST: Omnipaque 350; 100 mL IV. Oral contrast: Yes. DLP: 376.57 mGy.cm COMPARISON: 12/15/2018 Lower thorax: Mild dependent changes at the lung bases. Moderate cardiomegaly. Small hiatal hernia. P rior median sternotomy. Liver/biliary system: Normal size with no intrahepatic dilatation. Gallbladder: Normal. No gallstones or wall thickening. No pericholecystic fluid. Pancreas: Advanced severe diffuse pancreatic atrophy. Spleen: Normal size spleen. No mass or infarct. Adrenal glands: Normal. Right kidney: Mild cortical thinning. Small extrarenal pelvis. No obstruction. Left kidney: Mild cortical thinning. Small extrarenal pelvis. No obstruction or mass. Aorta: Moderate atherosclerosis with no aneurysm. Mesenteric artery calcifications but no obstruction . Lymphadenopathy: None. Free fluid: None. GI tract: Nondistended stomach. No small bowel obstruction. Moderate constipation. No appendicitis. M inimal diverticular disease with no acute diverticulitis. Abdominal wall: Fat containing umbilical hernia. Pelvis: No free fluid or adenopathy within the pelvis. LEFT inguinal hernia containing fat only. No a denopathy. Uterus is absent. Bones: Degenerative disease throughout the lumbar spine. No destructive bone process. CT/CT abdomen pelvis w con* [id number] IMPRESSION: 1. No acute abdominal or pelvic abnormalities. 2. Moderate atherosclerotic disease within the abdominal aorta and the mesente luis arteries. 3. No renal obstruction. 4. Prior hysterectomy and median sternotomy. 5. Tiny ventral abdominal wall hernia containing fat only. 6. LEFT inguinal hernia containing fat only. 7. Moderate cardiomegaly.
[2024-01-09 10:55] LABS: Blood Urea Nitrogen 20 mg/dL (8-23)
[2024-01-09] MEDS: iohexol 350 mg/mL 500 mL Btl (per mL) IV (11:34)
== END 2024-01-09 09:32 | disposition home or self-care (01) ==
LOC: RAD 09:31
PROVIDERS: PCP Family Medicine; Visit Provider Family Medicine
DX: K40.90 Unilateral inguinal hernia, without obstruction or gangrene, not specified as recurrent (principal); I51.7 Cardiomegaly; K44.9 Diaphragmatic hernia without obstruction or gangrene; Z98.890 Other specified postprocedural states; K86.89 Other specified diseases of pancreas; N28.89 Other specified disorders of kidney and ureter
CPT/HCPCS: 74177; 82565; 84520; Q9967

== ENCOUNTER → 2024-01-29 10:04 | Outpatient (BNVA) | payer MEDICARE, MEDICAID, SELFPAY | PROVIDERS: PCP Family Medicine; Visit Provider Family Medicine | DX: E11.9 Type 2 diabetes mellitus without complications (principal); F32.A Depression, unspecified; I10 Essential (primary) hypertension; I25.10 Atherosclerotic heart disease of native coronary artery without angina pectoris; Z79.4 Long term (current) use of insulin | CPT/HCPCS: 80053; 80061; 83036; 85025 ==

== ENCOUNTER 2024-02-16 14:20 | Outpatient (CLI) | payer MEDICARE, MEDICAID, SELFPAY ==
--- NOTE | 2024-02-16 14:28 | XRR_ITS ---
PROCEDURE INFORMATION: Exam: XR Right Forearm Exam date and time: 02/16/2024 2:46 PM Age: 88 years old Clinical indication: Injury or trauma; Fall; Blunt trauma (contusions or hematomas); Arm, lower; Right; Injury date: 02/14/24; Additional info: Right forearm pain TECHNIQUE: Imaging protocol: Radiologic exam of the right forearm. Views: 2 views. COMPARISON: CR XR wrist RT min 3V* [id number] 02/16/2024 2:46 PM FINDINGS: Bones/joints: Compared with the wrist views performed the same day, oblique fracture extending through the base of the styloid process of the radius into the radiocarpal joint again noted. Fracture is nondisplaced. There is a adjacent soft tissue swelling. Features of degenerative changes of the wrist and triangular fibrocartilage chondrocalcinosis are also again noted. There is no evidence of elbow fracture. No elbow effusion is seen. There are some nonspecific benign-appearing periarticular calcifications consistent with degenerative or remote traumatic origin. Soft tissues: See Bones/joints finding. XR/XR forearm RT 2V [id number] IMPRESSION: Intra-articular fracture of the distal radius again noted. No other acute traumatic pathology evident.
--- NOTE | 2024-02-16 14:28 | XRR_ITS ---
PROCEDURE INFORMATION: Exam: XR Right Wrist Exam date and time: 02/16/2024 2:46 PM Age: 88 years old Clinical indication: Injury or trauma; Fall; Blunt trauma (contusions or hematomas); Wrist; Right; Injury date: 02/14/24; Additional info: Right wrist pain after fall TECHNIQUE: Imaging protocol: Radiologic exam of the right wrist. Views: 3 or more views. COMPARISON: CR XR wrist RT min 3V* [id number] 03/03/2023 8:23 AM FINDINGS: Bones/joints: Interval appearance of a new intra-articular fracture extending obliquely through the base of the radial styloid. No dislocation. 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 Soft tissues: There is soft tissue swelling of the wrist greater along the dorsum. XR/XR wrist RT min 3V* [id number] IMPRESSION: Nondisplaced intra-articular fracture of the distal radius.
== END 2024-02-16 14:21 | disposition home or self-care (01) ==
LOC: RAD CLINIC 14:22
PROVIDERS: PCP Family Medicine; Visit Provider Clinical Nurse Specialist Adult Health
DX: S52.571A Other intraarticular fracture of lower end of right radius, initial encounter for closed fracture (principal); W19.XXXA Unspecified fall, initial encounter; M19.031 Primary osteoarthritis, right wrist; M11.231 Other chondrocalcinosis, right wrist
CPT/HCPCS: 73090; 73110

== ENCOUNTER 2024-02-17 17:04 | Outpatient (CLI) | payer MEDICARE, MEDICAID, SELFPAY | END 2024-02-17 17:05 | disposition home or self-care (01) | LOC: SPT 17:04 | PROVIDERS: PCP Family Medicine; Visit Provider Orthopaedic Surgery | DX: Z46.89 Encounter for fitting and adjustment of other specified devices (principal); S69.91XD Unspecified injury of right wrist, hand and finger(s), subsequent encounter; X58.XXXD Exposure to other specified factors, subsequent encounter | CPT/HCPCS: L3809 ==

== ENCOUNTER → 2024-03-02 15:00 | Outpatient (BNVA) | payer MEDICARE, MEDICAID, SELFPAY | PROVIDERS: PCP Family Medicine; Visit Provider Orthopaedic Surgery | DX: S52.571A Other intraarticular fracture of lower end of right radius, initial encounter for closed fracture (principal); W19.XXXA Unspecified fall, initial encounter | CPT/HCPCS: 73110; 99213 ==

== ENCOUNTER → 2024-03-23 11:21 | Outpatient (BNVA) | payer MEDICARE, MEDICAID, SELFPAY | PROVIDERS: PCP Family Medicine; Visit Provider Orthopaedic Surgery | DX: S52.571A Other intraarticular fracture of lower end of right radius, initial encounter for closed fracture (principal); X58.XXXA Exposure to other specified factors, initial encounter | CPT/HCPCS: 73110; 99213 ==

== ENCOUNTER → 2024-05-11 07:58 | Outpatient (BNVA) | payer MEDICARE, MEDICAID, SELFPAY | PROVIDERS: PCP Family Medicine; Visit Provider Orthopaedic Surgery | DX: S52.571A Other intraarticular fracture of lower end of right radius, initial encounter for closed fracture (principal); Z09 Encounter for follow-up examination after completed treatment for conditions other than malignant neoplasm; X58.XXXA Exposure to other specified factors, initial encounter | CPT/HCPCS: 73110; 99213 ==

== ENCOUNTER → 2024-05-12 10:50 | Outpatient (BNVA) | payer MEDICARE, MEDICAID, SELFPAY | PROVIDERS: PCP Family Medicine; Visit Provider Nurse Practitioner Family | DX: I65.23 Occlusion and stenosis of bilateral carotid arteries (principal); I10 Essential (primary) hypertension | CPT/HCPCS: 99214 ==

== ENCOUNTER 2024-05-27 12:40 | Outpatient (CLI) | payer MEDICARE, MEDICAID, SELFPAY ==
--- NOTE | 2024-05-27 12:45 | CT_ITS ---
WS: [id number] CTA HEAD AND NECK TECHNIQUE: Contrast enhanced CTA of the head and neck with coronal and sagittal reformatted images an d maximum intensity projection (MIP) images. NASCET criteria utilized. CLINICAL INFORMATION: left carotid bruit, mod stenosis COMPARISON: 2021 DLP: 1095.[address] scans at [facility] use at least one of these dose optimization techniques: automated e xposure control; mA and/or kV adjustment per patient size (includes targeted exams where dose is matc hed to clinical indication); or iterative reconstruction. FINDINGS: no evidence of intracranial hemorrhage or mass effect. Ventricular system and basal cisterns are holland nt. Mild small vessel changes. Moderate parenchymal volume loss. Vascular calcification. No hydroceph alus. Paranasal sinuses are well aerated. Mastoid air cells are well aerated. RIGHT: RIGHT proximal ICA stenosis 50% with calcified atheromatous plaque LEFT: LEFT proximal ICA stenosis with calcified atheromatous plaque measuring 56%. INTRACRANIAL CTA: Basilar artery is patent. Normal vascularity to the [facility] [facility] territory bilaterally. Both ICAs are patent at the skull base. Moderate cavernous carotid calcification. Moderate supraclino id ICA stenosis unchanged. Normal vascularity to the TAISHA and MCA territories bilaterally. CT/CT angio headneck* [id number] IMPRESSION: 1. Stable LEFT proximal ICA stenosis measuring 56% 2. Progressed RIGHT proximal ICA stenosis measuring approximately 50% 3. Stable moderate supraclinoid ICA stenosis bilaterally. LEFT dominant verteb ral artery. Both vertebral arteries appear patent today. Intracranial vertebral artery calcification with mild stenosis proximal to the basilar junction. 4. No proximal flow-limiting intracranial stenosis
[2024-05-27] MEDS: iohexol 350 mg/mL 500 mL Btl (per mL) IV (14:01)
[2024-05-27 14:03] LABS: Blood Urea Nitrogen 22 mg/dL (8-23)
== END 2024-05-27 12:41 | disposition home or self-care (01) ==
LOC: RAD 12:41
PROVIDERS: PCP Family Medicine; Visit Provider Nurse Practitioner Family
DX: I65.23 Occlusion and stenosis of bilateral carotid arteries (principal); R09.89 Other specified symptoms and signs involving the circulatory and respiratory systems
CPT/HCPCS: 70496; 70498; 82565; 84520

== ENCOUNTER 2024-06-01 10:00 | Outpatient (CLI) | payer MEDICARE, MEDICAID, SELFPAY | END 2024-06-01 10:01 | disposition home or self-care (01) | LOC: LAB 05-06 10:22 | PROVIDERS: PCP Family Medicine; Visit Provider Family Medicine | DX: I10 Essential (primary) hypertension (principal); R53.1 Weakness; R42 Dizziness and giddiness; Z79.4 Long term (current) use of insulin; E11.9 Type 2 diabetes mellitus without complications | CPT/HCPCS: 80053; 80061; 83036; 83880; 84443; 84484; 85025; 86140; 87086 ==

== ENCOUNTER 2024-06-01 11:56 | Emergency (ER) | payer MEDICARE, MEDICAID, SELFPAY | END 2024-06-01 12:25 | disposition left against medical advice (07) | LOC: ER 11:59 | PROVIDERS: Emergency Provider Family Medicine; PCP Family Medicine | DX: Z53.21 Procedure and treatment not carried out due to patient leaving prior to being seen by health care provider (principal) | CPT/HCPCS: 80053; 80061; 81000; 83036; 83880; 84443; 84484; 85025; 86140; 87086 ==

== ENCOUNTER 2024-06-16 10:50 | Emergency (ER) | payer MEDICARE, MEDICAID, SELFPAY ==
[2024-06-16 10:52] VITALS: BP 182/104; PULSE 88; RESP 17; TEMP 36.6; O2SAT 96; BMI 24.2
--- NOTE | 2024-06-16 10:57 | ED_ITS ---
HPI - Abdominal Pain 2 General: Chief Complaint: Nausea/Vomiting/Diarrhea Stated Complaint: N/V Time Seen by Provider: 06/16/24 10:51 Source: patient and EMS Mode of arrival: EMS Limitations: no limitations History of Present Illness: 88-year-old female states that she has h ad some nausea along with cramping abdominal pain this morning. She states she just feels full in her stomach having pain she rates a 4 out of 10. States she has a history of chronic constipation feels like she needs to go to the bathroom does feel nauseous has had no vomiting denies any fevers denies any worse improved factors. Associated Symptoms: Reports nausea; Denies chills, diarrhea, dysuria, fever(s) and vomiting Related Data Home Medications Medication Instructions Recorded Confirmed aspirin 81 mg tablet,delayed 81 mg PO DAILY 01/22/23 06/16/24 release (Adult Low Dose Aspirin) Previous Rx's Medication Instructions Recorded blood-glucose meter (Accu-Chek #1 ea 05/14/23 Guide Glucose Meter) pen needle, diabetic 32 gauge x #50 ea 06/15/23 insulin aspar prot-insulin aspart See Rx Instructions SUBCUT BID #15 06/18/23 100 unit/mL (70-30) subcutaneous mL pen (Novolog Mix 70-30FlexPen U-100) lancets 33 gauge (OneTouch Delica #100 ea 09/24/23 Plus Lancet) clonidine HCl 0.1 mg tablet See Rx Instructions .Route 10/01/23 .COMPLEX #30 tabs hydralazine 50 mg tablet 75 mg (1.5 x 50 mg) PO TID #135 11/13/23 tabs insulin syringe-needle U-100 2 #100 ea 11/19/23 mL 31 gauge x 15/64 blood sugar diagnostic (True #100 ea 12/09/23 Metrix Glucose Test Strip) clopidogrel 75 mg tablet (Plavix) 75 mg PO DAILY #30 tabs 12/09/23 losartan 100 mg tablet 100 mg PO QAM #30 tabs 12/09/23 Thumb Spica, right wrist #1 ea 02/17/24 furosemide 20 mg tablet 20 mg PO DAILY #90 tabs 03/03/24 lactulose 10 gram/15 mL oral 10 g (15 mL) PO BID PRN 03/03/24 solution Constipation #473 mL insulin glargine 100 unit/mL 15 unit (0.15 mL) SUBCUT QAM #10 mL 03/26/24 subcutaneous solution (Lantus U-100 Insulin) alprazolam 0.5 mg tablet 0.5 mg PO BID #60 tabs 04/08/24 omeprazole 40 mg capsule,delayed 40 mg PO DAILY #90 caps 06/02/24 release ondansetron 4 mg disintegrating 4 mg PO Q6H PRN nausea and 06/16/24 tablet vomiting #14 tabs Allergies Allergy/AdvReac Type Severity Reaction Status Date / Time escitalopram [From Lexapro] Allergy Unknown hyponatremi Verified 05/31/24 16:46 a ezetimibe [From Zetia] Allergy muscle pain Verified 05/12/24 11:00 Pnzaanm-RUR-FbV Reductase Allergy muscle pain Verified 05/12/24 11:00 Inhibitor [Kbprimz-Ist-Htn Reductase Inhibitor] carvedilol [From Coreg] AdvReac Intermediate dizziness Verified 05/12/24 11:00 Review of Systems 2 Const: Denies: fever(s), chills, body aches or change in appetite ENMT: Denies: throat pain or dental pain Card: Denies: chest pain Resp: Denies: dyspnea GI: Reports: abdominal pain and nausea; Denies: vomiting or diarrhea : Denies: dysuria Musc: Denies: neck pain or back pain Skin/Breast: Denies: rash Neuro: Denies: headache(s) PFSH ED 2 PFSH: Medical History 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 CVA (cerebral vascular accident) 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 Hyponatremia CAD (coronary artery disease) HTN (hypertension), benign Hyperlipidemia Bilateral carotid artery stenosis Peripheral vascular disease Chronic constipation Diabetes Surgical History History of colonoscopy Hx of CABG H/O: hysterectomy H/O tubal ligation History of knee surgery Family History Daughter Cancer Family/Other Cancer Lung disease Diabetes Grandmother Cancer Mother Dementia Stroke Brother Diabetes Denies family history of CAD (coronary artery disease) Clotting disorder Chronic kidney disease (CKD) Suicide Anesthesia complication Bleeding disorder Social History Smoking and tobacco/nicotine status: unknown if used tobacco/nicotine Alcohol intake: never Substance/Drug Use: never Lives independently: Yes Physical Exam 2 Const: COMMON NORMALS: no acute distress, patient oriented x3 and healthy appearing HENMT: COMMON NORMALS: normocephalic and atraumatic HEAD & SCALP: n ormocephalic and atraumatic Neck/C-Spine: COMMON NORMALS: full ROM and supple Chest: COMMONS NORMALS: normal inspection of the chest and normal palpation of entire chest wall Resp: COMMON NORMALS: normal respiratory effort, No retractions, No use of accessory muscles and clear to auscultation bilaterally AUSCULTATION: clear to auscultation bilaterally Cardio: COMMON NORMALS: regular rate, regular rhythm and No murmurs present (Cardio) RATE: regular rate RHYTHM: regular rhythm GI: COMMON NORMALS: Normal to inspection, nondistended, normoactive bowel sounds present, Soft to palpation, non-tender and no masses PALPATION: Yes Soft to palpation Extremity: COMMON NORMALS: normal to inspection and full ROM Neuro: COMMON NORMALS: patient oriented x3, moves all extremities and no focal motor deficits Psych: COMMON NORMALS: mental status grossly normal, Normal thought process present and cooperative THOUGHT PROCESS: Normal thought process present Skin: COMMON NORMALS: no rashes or lesions noted and no wounds GENERAL SKIN EXAM: no rashes or lesions noted Course 2 Vital Signs: Vital signs: Vital Signs Temperature 97.8 F 06/16/24 10:52 Pulse Rate 101 H 06/16/24 12:57 Respiratory Rate 17 06/16/24 10:52 Blood Pressure 142/119 06/16/24 12:57 Pulse Oximetry 95 06/16/24 12:57 Oxygen Delivery Me thod Room Air 06/16/24 10:52 MDM - Abdominal Pain Medical Decision Making Patient presents to abdominal pain nausea decreased appetite been going on for quite some time her exam here is benign blood work CT scan are normal she stable for discharge she has a follow-up with her PCP next Friday is to follow-up as scheduled she is return if worsening will prescribe her Zofran her and family understand agree to plan Medical Records I reviewed the patient's medical records. Lab Data I reviewed the patient's lab results. 06/16/24 11:03 06/16/24 11:03 Labs/Radiology: Radiology Impressions Abdomen/Pelvis CT 06/16/24 12:48 IMPRESSION: 1. No GI tract obstruction. No colitis or diverticulitis. 2. No adenopathy or ascites. No free air. 3. Moderate atherosclerosis aorta. 4. No renal obstruction. Laboratory Results WBC 5.43 10^3/uL (3.29-11.43) 06/16/24 11:03 RBC 4.08 10^6/uL (3.85-5.65) 06/16/24 11:03 Hgb 11.80 g/dL (11.27-16.99) 06/16/24 11:03 Hct 32.6 % (36-47) L 06/16/24 11:03 MCV 79.9 fl (85-98) L 06/16/24 11:03 MCH 28.9 pg (27-33) 06/16/24 11:03 MCHC 36.2 g/dL (30-55) 06/16/24 11:03 RDW 13.4 % (12.1-15.1) 06/16/24 11:03 Plt Count 381 10^3/cmm (157-399) 06/16/24 11:03 MPV 8.9 fL (7.4-10.4) 06/16/24 11:03 Neut % (Auto) 73.1 % 06/16/24 11:03 Lymph % (Auto) 18.0 % 06/16/24 11:03 Harmon % (Auto) 7.7 % 06/16/24 11:03 Eos % (Auto) 0.4 % 06/16/24 11:03 Baso % (Auto) 0.6 % 06/16/24 11:03 Neut # (Auto) 3.97 10^3/uL (1.8-7.7) 06/16/24 11:03 Lymph # (Auto) 1.0 10^3/uL (0.8-4.8) 06/16/24 11:03 Harmon # (Auto) 0.4 10^3/uL (0.2-0.9) 06/16/24 11:03 Eos # (Auto) 0.0 10^3/uL (0.0-0.8) 06/16/24 11:03 Baso # (Auto) 0.0 10^3/uL (0.0-0.1) 06/16/24 11:03 Nucleated RBC % (auto) 0 % 06/16/24 11:03 Nucleated RBCs # 0.0 /100WBC 06/16/24 11:03 Sodium 127 mmol/L (136-145) L 06/16/24 11:03 Potassium 3.8 mmol/L (3.5-5.1) 06/16/24 11:03 Chloride 90 mmol/L (98-107) L 06/16/24 11:03 Carbon Dioxide 21 mmol/L (22-29) L 06/16/24 11:03 Anion Gap 19.8 (5-19) H 06/16/24 11:03 BUN 17 mg/dL (8-23) 06/16/24 11:03 Creatinine 0.9 mg/dL (0.5-0.9) 06/16/24 11:03 GFR Calculation Not Reportable 06/16/24 11:03 Glucose 173 mg/dL (65-115) H 06/16/24 11:03 Calculated Osmolality 270 mOsm/kg (285-295) L 06/16/24 11:03 Calcium 9.4 mg/dL (8.5-10.5) 06/16/24 11:03 Total Bilirubin 0.5 mg/dL (0.15-1.2) 06/16/24 11:03 AST 20 U/L (0-32) 06/16/24 11:03 ALT 10 U/L (0-33) 06/16/24 11:03 Alkaline Phosphatase 89 U/L (35-105) 06/16/24 11:03 Total Protein 6.8 g/dL (6.6-8.7) 06/16/24 11:03 Albumin 4.0 g/dL (3.5-5.2) 06/16/24 11:03 Globulin 2.8 g/dL (1.3-4.6) 06/16/24 11:03 Lipase 11 U/L (13-60) L 06/16/24 11:03 Urine Color Yellow (Yellow) 06/16/24 11:54 Urine Appearance Clear (CLEAR) 06/16/24 11:54 Urine pH 7.5 (5-7) 06/16/24 11:54 Ur Specific [place] 1.007 (1.005-1.030) 06/16/24 11:54 Urine Protein 1+ (Negative) A 06/16/24 11:54 Urine Glucose (UA) Negative (Normal) 06/16/24 11:54 Urine Ketones Negative (Negative) 06/16/24 11:54 Urine Blood Negative (Negative) 06/16/24 11:54 Urine Nitrate Negative (Negative) 06/16/24 11:54 Urine Bilirubin Negative (Negative) 06/16/24 11:54 Urine Urobilinogen 0.2 mg/dL (Negative) 06/16/24 11:54 Ur Leukocyte Esterase Negative (Negative) 06/16/24 11:54 Urine RBC 0-2 /hpf (0-2) 06/16/24 11:54 Urine WBC 0-5 /hpf (0-5) 06/16/24 11:54 Ur Squamous Epith Cells 0-5 /hpf (0-5) 06/16/24 11:54 Amorphous Sediment Not Reportable 06/16/24 11:54 Urine Bacteria None seen /hpf (NONE) 06/16/24 11:54 Hyaline Casts 1.21 /lpf 06/16/24 11:54 All radiology interpretation(s) finalized by discharge Discharge Plan Discharge Patient Disposition: Home Clinical Impression: Abdominal pain Condition: Stable Prescriptions: New ondansetron 4 mg tablet,disintegrating 4 mg PO Q6H PRN (Reason: nausea and vomiting) Qty: 14 0RF No Action aspirin [Adult Low Dose Aspirin] 81 mg tablet,delayed release (DR/EC) 81 mg PO DAILY (DME) blood-glucose meter [Accu-Chek Guide Glucose Meter] Misc See Rx Instructions .Route Qty: 1 11RF Rx Instructions: check twice a day (DME) Thumb Spica, right wrist See Rx Instructions .Route .MEDSUPPLY Qty: 1 0RF Rx Instructions: As directed hydralazine 50 mg tablet 75 mg PO TID Qty: 135 11RF (DME) pen needle, diabetic 32 gauge x 5/32 needle See Rx Instructions .ROUTE .COMPLEX Qty: 50 11RF Dose Instruction: USE DIRECTED TWICE DAILY Rx Instructions: USE DIRECTED TWICE DAILY insulin asp prt-insulin aspart [Novolog Mix 70-30FlexPen U-100] 100 unit/mL (70-30) insulin pen See Rx Instructions SUBCUT BID Qty: 15 11RF Rx Instructions: 15 in AM and 8 in PM subcutaneously twice a day; (DME) lancets [OneTouch Delica Plus Lancet] 33 gauge misc See Rx Instructions .Route Qty: 100 12RF Rx Instructions: Use to check glucose twice a day clonidine HCl 0.1 mg tablet See Rx Instructions .ROUTE .COMPLEX Qty: 30 11RF Dose Instruction: TAKE 1 TABLET BY MOUTH THREE TIMES DAILY NEEDED FOR HYPERTENSIVE EMERGENCY TAKE FOR SYSTOLIC BLOOD PRESSURE GREATER THAN 180 Rx Instructions: TAKE 1 TABLET BY MOUTH THREE TIMES DAILY NEEDED FOR HYPERTENSIVE EMERGENCY TAKE FOR SYSTOLIC BLOOD PRESSURE GREATER THAN 180 (DME) insulin syringe-needle U-100 1/2 mL 31 gauge x 15/64 syringe See Rx Instructions .ROUTE .COMPLEX Qty: 100 3RF Dose Instruction: USE DIRECTED Rx Instructions: USE DIRECTED (DME) True Metrix Glucose Test Strip Strip See Rx Instructions .Route Qty: 100 11RF Rx Instructions: check twice a day losartan 100 mg tablet 100 mg PO QAM Qty: 30 11RF clopidogrel [Plavix] 75 mg tablet 75 mg PO DAILY Qty: 30 11RF lactulose 10 gram/15 mL solution 10 g PO BID PRN (Reason: Constipation) Qty: 473 3RF furosemide 20 mg tablet 20 mg PO DAILY Qty: 90 3RF insulin glargine [Lantus U-100 Insulin] 100 unit/mL solution 15 unit SUBCUT QAM Qty: 10 11RF Hold Instructions: Adverse Reaction alprazolam 0.5 mg tablet 0.5 mg PO BID Qty: 60 3RF omeprazole 40 mg capsule,delayed release(DR/EC) 40 mg PO DAILY Qty: 90 3RF Discharge Orders: Discharge ED (Routine); Ordered 06/16/24 Ordered By: Cynthia Leon Referrals: Dallas Lorenzana MD [Primary Care Provider] - 4-7 days Discharge Activity: Resume usual activity Patient Instructions: Abdominal Pain (ED) Coding Level of Care Code ED [employer] [facility] for [facility]
[2024-06-16] MEDS: sodium chloride 0.9% 1,000 ML 999 ML IV (11:07)
[2024-06-16] MEDS: ondansetron 2 mg/ML SDV 2 mL 4 MG IVP (11:07)
--- NOTE | 2024-06-16 11:09 | ECG_ITS ---
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 Measurements Intervals [place] Rate: 90 P: 50 WY: 204 QRS: -75 QRSD: 145 T: 55 QT: 431 QTc: 528 Interpretive Statements SINUS RHYTHM RIGHT BUNDLE BRANCH BLOCK [120+ ms QRS DURATION, UPRIGHT V1, 40+ ms S IN I/aVL/V4/V5/V6] LEFT ANTERIOR FASCICULAR BLOCK [QRS AXIS <= -45, QR IN I, RS IN II] MINIMAL VOLTAGE CRITERIA FOR LVH, CONSIDER NORMAL VARIANT [MEETS CRITERIA IN ONE OF: R(aVL), S(V1), R(V5), R(V5/V6)+S(V1)] Compared to ECG 08/07/2023 16:07:37 No significant changes Electronically Signed On 06-17-2024 21:08:58 PANEL INSTALLER by Greta Akers M.D. [id number]
[2024-06-16 11:22] LABS: Basophils % 0.6 %; Eosinophils % 0.4 %; Hematocrit 32.6 % (36-47); Mean Corpuscular HGB Conc 36.2 g/dL (30-55); Mean Corpuscular Hemoglobin 28.9 pg (27-33); Mean Corpuscular Volume 79.9 fl (85-98); Mean Platelet Volume 8.9 fL (7.4-10.4); Monocytes # 0.4 10^3/uL (0.2-0.9); Monocytes % 7.7 %; Neutrophils # 3.97 10^3/uL (1.8-7.7); Neutrophils % 73.1 %; Nucleated Red Blood Cells % 0 %; Platelet Count 381 10^3/cmm (157-399); Red Blood Count 4.08 10^6/uL (3.85-5.65); Red Cell Distribution Width 13.4 % (12.1-15.1); White Blood Count 5.43 10^3/uL (3.29-11.43)
[2024-06-16 11:35] LABS: Alanine Aminotransferase 10 U/L (0-33); Alkaline Phosphatase 89 U/L (35-105); Anion Gap 19.8 (5-19); Aspartate Amino Transferase 20 U/L (0-32); Carbon Dioxide 21 mmol/L (22-29); Chloride 90 mmol/L (98-107); Globulin 2.8 g/dL (1.3-4.6); Glucose 173 mg/dL (65-115); Lipase 11 U/L (13-60); Potassium 3.8 mmol/L (3.5-5.1); Sodium 127 mmol/L (136-145); Total Bilirubin 0.5 mg/dL (0.15-1.2); Total Protein 6.8 g/dL (6.6-8.7)
[2024-06-16 11:54] LABS: Blood Urea Nitrogen 17 mg/dL (8-23); Calcium 9.4 mg/dL (8.5-10.5); Creatinine Clr Calc Pharmacy 44.4802; Osmolality Calculated 270 mOsm/kg (285-295)
[2024-06-16] MEDS: hyDRALAzine 20 mg/mL INJ 1 mL 10 MG IVP (12:04)
[2024-06-16 12:05] LABS: Bilirubin Urine Negative (Negative); Blood Urine Negative (Negative); Glucose Urine UA Negative (Normal); Ketones Urine Negative (Negative); Leukocyte Esterase Urine Negative (Negative); Nitrate Urine Negative (Negative); Protein Urine 1+ (Negative); Specific Gravity, Urine 1.007 (1.005-1.030); Urine Appearance Clear (CLEAR); Urine Color Yellow (Yellow); Urobilinogen Urine 0.2 mg/dL (Negative); pH Urine 7.5 (5-7)
[2024-06-16 12:07] LABS: Add Urine Microscopic? YES; Bacteria Urine None Seen /hpf; Hyaline Casts Urine 1.21 /lpf; RBC Urine 0-2 /hpf (0-2); Squamous Epithelial Cell Urine 0-5 /hpf (0-5); WBC Urine 0-5 /hpf (0-5)
--- NOTE | 2024-06-16 12:48 | CT_ITS ---
WS: [id number] CT ABDOMEN AND PELVIS WITH CONTRAST HISTORY: Abdominal pain. Pelvic pressure. TECHNIQUE: Imaging performed of the abdomen and pelvis with IV contrast. Single phase imaging of the abdomen. Coronal and sagittal reformats are submitted. All CT scans at [facility] use at [address] one of these dose optimization techniques: automated exposure control; mA and/or kV adjustment per patient size (includes targeted exams where dose is matched to clinical indication); or iterative re construction. IV CONTRAST: Omnipaque 350; 100 mL IV. Oral contrast: No DLP: 479.53 mGy.cm COMPARISON: 01/09/2024 Lower thorax: Lung bases are clear. Moderate cardiomegaly. Small hiatal hernia. Liver/biliary system: Normal size with no intrahepatic dilatation. Gallbladder: Normal. No gallstones or wall thickening. No pericholecystic fluid. Pancreas: Marked pancreatic atrophy. Spleen: Normal size spleen. No mass or infarct. Adrenal glands: Mild thickening of the LEFT adrenal gland is. RIGHT adrenal gland is negative. Right kidney: Mild cortical thinning with no obstruction. Extrarenal pelvis. Left kidney: Mild cortical thinning with no obstruction. Small extrarenal pelvis. Aorta: Moderate atherosclerosis with no aneurysm. Lymphadenopathy: None. Free fluid: None. GI tract: Nondistended stomach. No small bowel or colon obstruction. Normal appendix. No significant diverticular disease. No colitis. Abdominal wall: Unremarkable abdominal wall. No hernia. Pelvis: Well-distended urinary bladder. No free fluid or adenopathy. Bones: Unremarkable. CT/CT abdomen pelvis w con* [id number] IMPRESSION: 1. No GI tract obstruction. No colitis or diverticulitis. 2. No adenopathy or ascites. No free air. 3. Moderate atherosclerosis aorta. 4. No renal obstruction.
[2024-06-16 12:57] VITALS: BP 142/119; PULSE 101; O2SAT 95
[2024-06-16] MEDS: iohexol 350 mg/mL 500 mL Btl (per mL) IV (14:03)
[2024-06-16 14:39] VITALS: BP 136/100; PULSE 97; O2SAT 95
[2024-06-16 14:45] VITALS: BP 136/100; PULSE 91; O2SAT 96
== END 2024-06-16 14:46 | disposition home or self-care (01) ==
PROVIDERS: Emergency Provider Emergency Medicine; PCP Family Medicine
DX: R10.9 Unspecified abdominal pain (principal)
CPT/HCPCS: 74177; 80053; 81001; 83690; 85025; 93005; 96374; 96375; 99285; J0360; J2405; J7030

== ENCOUNTER → 2024-06-23 10:05 | Outpatient (BNVA) | payer MEDICARE, MEDICAID, SELFPAY | PROVIDERS: PCP Family Medicine; Visit Provider Family Medicine | DX: E87.1 Hypo-osmolality and hyponatremia (principal) | CPT/HCPCS: 80048 ==

== ENCOUNTER 2024-09-20 22:05 | Emergency (ER) | payer MEDICARE, MEDICAID, SELFPAY ==
[2024-09-20 22:06] VITALS: BP 166/95; PULSE 91; RESP 18; TEMP 36.7; O2SAT 97; BMI 29.0
--- NOTE | 2024-09-20 22:12 | XRR_ITS ---
PROCEDURE INFORMATION: Exam: XR Chest Exam date and time: 09/20/2024 10:14 PM Age: 88 years old Clinical indication: Other: Weakness; Prior surgery; Surgery date: 6+ months; Surgery type: Cabg TECHNIQUE: Imaging protocol: Radiologic exam of the chest. Views: 1 view. COMPARISON: CR XR chest 1V portable [id number] 08/07/2023 3:48 PM FINDINGS: Lungs: Shallow inspiration with mild crowding. No consolidation. Pleural spaces: Unremarkable. No pleural effusion. No pneumothorax. Heart/Mediastinum: Mitral annulus calcifications. The heart size is normal. Bones/joints: Sternotomy wires. XR/XR chest 1V portable [id number] IMPRESSION: No acute findings.
--- NOTE | 2024-09-20 22:28 | CTR_ITS ---
PROCEDURE INFORMATION: Exam: CT Head Without Contrast Exam date and time: 09/20/2024 10:34 PM Age: 88 years old Clinical indication: Other: Confusion TECHNIQUE: Imaging protocol: Computed tomography of the head without contrast. Radiation optimization: All CT scans at this facility use at least one of these dose optimization techniques: automated exposure control; mA and/or kV adjustment per patient size (includes targeted exams where dose is matched to clinical indication); or iterative reconstruction. COMPARISON: CT angio headneck* [id number] 05/27/2024 1:30 PM RADIATION DOSE METRICS: Total DLP (mGy-cm): 1146.18 FINDINGS: Brain: Moderate cortical volume loss. Mild hypodensities in supratentorial periventricular and subcortical white matter, consistent with microangiopathy. No intracranial hemorrhage. Cerebral ventricles: No ventriculomegaly. Paranasal sinuses: Visualized sinuses are unremarkable. No fluid levels. Mastoid air cells: Visualized mastoid air cells are well aerated. Orbital cavities: Prior cataract surgery. Bones: Unremarkable. No acute fracture. Soft tissues: Unremarkable. Vasculature: No hyperdense artery. CT/CT head wo con* [id number] IMPRESSION: No acute intracranial abnormality.
--- NOTE | 2024-09-20 22:29 | W.ED.WEAKNES ---
HPI - Weakness General: Chief complaint: Weakness Stated complaint: WEAKNESS Time Seen by Provider: 09/20/24 22:09 Source: patient and family Mode of arrival: EMS Limitations: no limitations History of Present Illness: Patient is an 88-year-old female with past medical history of CVA/lacunar infarct, CAD, hyponatremia, diabetes, hypertension, and hyperlipidemia who is brought into the ED by ambulance for weakness for the past 2 days. Initially I spoke with patient, ultimately she is unsure why she is here. She does state that she has felt not well for unreported amount of time, only complaint at this time is that she has to pee. She does not report to me any chest pain or shortness of breath. She is alert and oriented to herself and to place, not to time. Her vitals at this time unremarkable, other than blood pressure being mildly elevated. She does have a history of hypertension as mentioned. Waiting on family to arrive for further history. I spoke to son and daughter who are in the waiting room. They also confirmed that since Friday, patient has been not herself. They state that she has essentially eaten and drank nothing in that timeframe, and sparingly gets out of bed. Normally is ambulatory with assistance from walker, there has been no change with this. Son is concerned that this is related to her history of depression as she has been off of her alprazolam for a while now, as they are waiting for prescription to come in through the mail. Daughter states that the patient has infrequently been exhibiting signs of confusion as she forgot where her bathroom was just before coming into the ED. She does have a history of UTI, but states that symptoms and never been this severe. They are not reporting any fevers or that patient has been complaining of any pain. Actually they confirmed that the patient has not been complaining of anything. Patient does live at home with son but daughter lives next-door and helps take care of her. Patient has a history of triple bypass surgery with stent placement. Complaint: generalized weakness Onset (ago): day(s) Duration: constant and progressively worsening Location: generalized Relieving factors: none Exacerbating factors: none Context: other (Has not taken alprazolam for few days prior to symptoms) Associated symptoms: Reports confusion; Denies chest pain, chills, dysuria, fever(s), headache(s), nausea or vomiting Review of Systems General: Reports: 10 or more systems reviewed and unremarkable except in HPI and below (Provided by family) Const: Reports: other (Weakness); Denies: fever(s), chills or fatigue Card: Denies: chest pain, palpitations, swelling of feet/ankles or lightheadedness Resp: Denies: dyspnea, productive cough or wheezing GI: Denies: abdominal pain, nausea, vomiting, diarrhea or constipation : Denies: flank pain, difficulty voiding, dysuria or urinary frequency Musc: Denies: neck pain, back pain or joint pain Skin/Breast: Denies: rash Neuro: Reports: confusion; Denies: headache(s), numbness in extremities, lack of coordination, difficulty walking, frequent falls, Slurred speech present, seizure-like activity or involuntary movements PFSH ED PFSH: Medical History 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 CVA (cerebral vascular accident) Lacunar infarct Subclavian arterial stenosis Atherosclerotic heart disease of [place] coronary artery without angina pectoris Hyponatremia CAD (coronary artery disease) HTN (hypertension), benign Hyperlipidemia Bilateral carotid artery stenosis Peripheral vascular disease Chronic constipation Diabetes Surgical History History of colonoscopy Hx of CABG H/O: hysterectomy H/O tubal ligation History of knee surgery Family History Daughter Cancer Family/Other Cancer Lung disease Diabetes Grandmother Cancer Mother Dementia Stroke Brother Diabetes Denies family history of CAD (coronary artery disease) Clotting disorder Chronic kidney disease (CKD) Suicide Anesthesia complication Bleeding disorder Social History Smoking and tobacco/nicotine status: unknown if used tobacco/nicotine Alcohol intake: never Substance/Drug Use: never Lives independently: Yes Physical Exam Const: COMMON NORMALS: average body habitus, healthy appearing and well nourished GENERAL APPEARANCE: cooperative and anxious ORIENTATION/CONSCIOUSNESS: Yes awake, Yes oriented to person and Yes oriented to place HENMT: COMMON NORMALS: normocephalic, atraumatic and moist oral mucous membranes HEAD & SCALP: normocephalic and atraumatic Eye: COMMON NORMALS: Equal, round and reactive pupils present, EOMs intact bilaterally and conjunctivae normal CONJUNCTIVA: Yes conjunctivae normal PUPIL: Yes Equal, round and reactive pupils present OTHER: Eyes track midline, no nystagmus Neck/C-Spine: COMMON NORMALS: full ROM and no meningeal signs Resp: COMMON NORMALS: normal respiratory effort, No retractions, No use of accessory muscles and clear to auscultation bilaterally EFFORT & INSPECTION: Yes able to speak in complete sentences AUSCULTATION: clear to auscultation bilaterally Cardio: COMMON NORMALS: regular rate, regular rhythm, S1 normal heart sound present, S2 normal heart sound present, No gallops present (Cardio), No murmurs present (Cardio), No rub (Cardio) and Peripheral pulses 2+ throughout RATE: regular rate RHYTHM: regular rhythm HEART SOUNDS: S1 normal heart sound present and S2 normal heart sound present PERIPHERAL PULSES: Peripheral pulses 2+ throughout GI: COMMON NORMALS: Normal to inspection, nondistended, normoactive bowel sounds present, Soft to palpation and non-tender PALPATION: Yes Soft to palpation Extremity: COMMON NORMALS: normal to inspection, full ROM, capillary refill normal and no pedal edema Neuro: COMMON NORMALS: moves all extremities, no focal motor deficits and no sensory deficits noted SENSORIUM/ORIENTATION: Yes oriented to person and Yes oriented to place MENINGEAL SIGNS: Yes no meningeal signs MOTOR EXAM: 5/5 motor strength present throughout, Pronator motor function not present, no tremor noted, no asterixis, Motor fasciculations not present and Normal motor muscle tone present throughout Psych: ACTIVITY/MOTOR BEHAVIOR: Yes Avoids eye contact (attititude/behavior) MOOD & AFFECT: Yes anxious THOUGHT CONTENT: No Suicidality present and No Homicidality present Skin: COMMON NORMALS: no rashes or lesions noted GENERAL SKIN EXAM: no rashes or lesions noted Course Vital Signs: Vital signs: Vital Signs Temperature 98.1 F 09/20/24 22:06 Pulse Rate 91 09/20/24 22:06 Respiratory Rate 18 09/20/24 22:06 Blood Pressure 166/95 09/20/24 22:06 Pulse Oximetry 97 09/20/24 22:06 Oxygen Delivery Me thod Room Air 09/20/24 22:06 MDM - Weakness Medical Decision Making Patient presented by ambulance for family complaining of weakness and not feeling well. Of note she is about a week or so removed from alprazolam which she reportedly was taking for years for depression, they just have not received refill in the mail yet. Patient also has a history of dementia, is at baseline mentation based off of neurological evaluation with no other focal deficits. Vitals have been essentially unremarkable throughout ED stay. With lab work, she is chronically anemic, chronically hyponatremic, and the rest of her lab work was ultimately unremarkable. Urinalysis did not demonstrate any signs of urinary tract infection. Viral swab negative. EKG obtained reviewed with Dr. Biswas did not show any significant change from previous obtained a year ago. Baseline troponin was also unchanged from previous, 2-hour troponin normal. Chest x-ray unremarkable and head CT unremarkable. Ultimately this workup is negative for any significant reasons for her reported weakness over the past couple of days, what I do suspect is that this is exacerbation of her depression being that she is not taking her medications, could potentially be withdrawal. She is given her dose here and 1 for home, in the hopes that she will obtain the prescription in the mail as they are expecting. I do not see a reason for admission at this time as family states that they would like to take the patient back home as they can care for without issue, but did verbalize understanding for the return precautions I gave them. Patient discharged back home, discussed case with Dr. Biswas. Lab Data 09/20/24 22:23 09/20/24 22:23 Radiology Impressions Chest X-Ray 09/20/24 22:12 IMPRESSION: No acute findings. Head CT 09/20/24 22:28 IMPRESSION: No acute intracranial abnormality. Laboratory Results WBC 5.41 10^3/uL (3.29-11.43) 09/20/24 22:23 RBC 3.83 10^6/uL (3.85-5.65) L 09/20/24 22:23 Hgb 10.90 g/dL (11.27-16.99) L 09/20/24 22: Hct 31.8 % (36-47) L 09/20/24 22:23 MCV 83.0 fl (85-98) L 09/20/24 22: MCH 28.5 pg (27-33) 09/20/24 22: MCHC 34.3 g/dL (30-55) 09/20/24 22:23 RDW 13.1 % (12.1-15.1) 09/20/24 22: Plt Count 311 10^3/cmm (157-399) 09/20/24 22: MPV 8.8 fL (7.4-10.4) 09/20/24 22:23 Neut % (Auto) 51.8 % 09/20/24 22:23 Lymph % (Auto) 33.3 % 09/20/24 22:23 [place] % (Auto) 13.7 % 09/20/24 22:23 Eos % (Auto) 0.2 % 09/20/24 22:23 Baso % (Auto) 0.6 % 09/20/24: Neut # (Auto) 2.81 10^3/uL (1.8-7.7) 09/20/24 22: Lymph # (Auto) 1.8 10^3/uL (0.8-4.8) 09/20/24 22:23 [place] # (Auto) 0.7 10^3/uL (0.2-0.9) 09/20/24 22:23 Eos # (Auto) 0.0 10^3/uL (0.0-0.8) 09/20/24 22: Baso # (Auto) 0.0 10^3/uL (0.0-0.1) 09/20/24 22: Nucleated RBC % (auto) 0 % 09/20/24: Nucleated RBCs # 0.0 /100WBC 09/20/24 22: Sodium 128 mmol/L (136-145) L 09/20/24 22:23 Potassium 3.4 mmol/L (3.5-5.1) L 09/20/24 22:23 Chloride 90 mmol/L (98-107) L 09/20/24 22:23 Carbon Dioxide 22 mmol/L (22-29) 09/20/24 22:23 Anion Gap 19.4 (5-19) H 09/20/24 22:23 BUN 19 mg/dL (8-23) 09/20/24 22:23 Creatinine 1.1 mg/dL (0.5-0.9) H 09/20/24 22:23 GFR Calculation Not Reportable 09/20/24 22:23 Glucose 131 mg/dL (65-115) H 09/20/24 22:23 Calculated Osmolality 270 mOsm/kg (285-295) L 09/20/24 22:23 Calcium 9.4 mg/dL (8.5-10.5) 09/20/24 22:23 Magnesium 1.7 mg/dL (1.7-2.3) 09/20/24 22:23 Total Bilirubin 0.4 mg/dL (0.15-1.2) 09/20/24 22:23 AST 20 U/L (0-32) 09/20/24 22:23 ALT 11 U/L (0-33) 09/20/24 22:23 Alkaline Phosphatase 83 U/L (35-105) 09/20/24 22:23 Troponin T Baseline 62 ng/L (0-10) H 09/20/24 22:23 Total Protein 6.6 g/dL (6.6-8.7) 09/20/24 22:23 Albumin 4.0 g/dL (3.5-5.2) 09/20/24 22:23 Globulin 2.6 g/dL (1.3-4.6) 09/20/24 22:23 Urine Color Yellow (Yellow) 09/20/24 23:53 Urine Appearance Clear (CLEAR) 09/20/24 23:53 Urine pH 7.0 (5-7) 09/20/24 23:53 Ur Specific [place] 1.013 (1.005-1.030) 09/20/24 23:53 Urine Protein Trace (Negative) A 09/20/24 23:53 Urine Glucose (UA) Negative (Normal) 09/20/24 23:53 Urine Ketones Trace (Negative) 09/20/24 23:53 Urine Blood Negative (Negative) 09/20/24 23:53 Urine Nitrate Negative (Negative) 09/20/24 23:53 Urine Bilirubin Negative (Negative) 09/20/24 23:53 Urine Urobilinogen 1.0 mg/dL (Negative) 09/20/24 23:53 Ur Leukocyte Esterase Negative (Negative) 09/20/24 23:53 Urine RBC 3-5 /hpf (0-2) 09/20/24 23:53 Urine WBC 0-5 /hpf (0-5) 09/20/24 23:53 Ur Squamous Epith Cells 0-5 /hpf (0-5) 09/20/24 23:53 Amorphous Sediment Not Reportable 09/20/24 23:53 Urine Bacteria None seen /hpf (NONE) 09/20/24 23:53 Hyaline Casts 1.65 /lpf 09/20/24 23:53 Influenza A (PCR) Negative (Negative) 09/20/24 23:04 Influenza Type B (PCR) Negative (Negative) 09/20/24 23:04 RSV (PCR) Negative (Negative) 09/20/24 23:04 SARS-CoV-2 (PCR) Negative (Negative) 09/20/24 23:04 All radiology interpretation(s) finalized by discharge Discharge Plan Discharge Patient Disposition: Home Clinical Impression: Depression, Hyponatremia, Dehydration Condition: Stable Prescriptions: No Action aspirin [Adult Low Dose Aspirin] 81 mg tablet,delayed release (DR/EC) 81 mg PO DAILY (DME) blood-glucose meter [Accu-Chek Guide Glucose Meter] Misc See Rx Instructions .Route Qty: 1 11RF Rx Instructions: check twice a day (DME) Thumb Spica, right wrist See Rx Instructions .Route .MEDSUPPLY Qty: 1 0RF Rx Instructions: As directed hydralazine 50 mg tablet 75 mg PO TID Qty: 135 11RF (DME) Dexcom G6 Sensor Device See Rx Instructions .MEDSUPPLY Qty: 3 12RF Rx Instructions: Change every 10 days; Use as directed to check blood sugar (DME) Dexcom G6 Director [employer] Misc See Rx Instructions .MEDSUPPLY Qty: 1 0RF Rx Instructions: Use as directed for checking blood sugar lactulose 10 gram/15 mL solution 10 g PO BID PRN (Reason: Constipation) Qty: 473 11RF clonidine HCl 0.1 mg tablet See Rx Instructions .ROUTE .COMPLEX Qty: 30 11RF Dose Instruction: TAKE 1 TABLET BY MOUTH THREE TIMES DAILY NEEDED FOR HYPERTENSIVE EMERGENCY TAKE FOR SYSTOLIC BLOOD PRESSURE GREATER THAN 180 Rx Instructions: TAKE 1 TABLET BY MOUTH THREE TIMES DAILY NEEDED FOR HYPERTENSIVE EMERGENCY TAKE FOR SYSTOLIC BLOOD PRESSURE GREATER THAN 180 (DME) insulin syringe-needle U-100 1/2 mL 31 gauge x 15/64 syringe See Rx Instructions .ROUTE .COMPLEX Qty: 100 3RF Dose Instruction: USE DIRECTED Rx Instructions: USE DIRECTED (DME) True Metrix Glucose Test Strip Strip See Rx Instructions .Route Qty: 100 11RF Rx Instructions: check twice a day losartan 100 mg tablet 100 mg PO QAM Qty: 30 11RF clopidogrel [Plavix] 75 mg tablet 75 mg PO DAILY Qty: 30 11RF furosemide 20 mg tablet 20 mg PO DAILY Qty: 90 3RF insulin glargine [Lantus U-100 Insulin] 100 unit/mL solution 15 unit SUBCUT QAM Qty: 10 11RF (DME) lancets [OneTouch Delica Plus Lancet] 33 gauge misc See Rx Instructions .Route Qty: 100 12RF Rx Instructions: Use to check glucose twice a day insulin asp prt-insulin aspart [Novolog Mix 70-30FlexPen U-100] 100 unit/mL (70-30) insulin pen See Rx Instructions SUBCUT BID Qty: 15 11RF Rx Instructions: 15 in AM and 8 in PM subcutaneously twice a day; (DME) pen needle, diabetic 32 gauge x 5/32 needle See Rx Instructions .ROUTE .COMPLEX Qty: 50 11RF Dose Instruction: USE DIRECTED TWICE DAILY Rx Instructions: USE DIRECTED TWICE DAILY omeprazole 40 mg capsule,delayed release(DR/EC) 40 mg PO DAILY Qty: 90 3RF ondansetron 4 mg tablet,disintegrating 4 mg PO Q6H PRN (Reason: nausea and vomiting) Qty: 14 5RF alprazolam 0.5 mg tablet 0.5 mg PO BID Qty: 60 3RF Discharge Orders: Discharge ED (Routine); Ordered 09/21/24 Ordered By: Farzad Rubio Referrals: Dallas Lorenzana MD [Primary Care Provider] - Patient Instructions: Depression in Older Adults (ED) Activity Restrictions/Additional Instructions: Continue to seek refill for alprazolam, and monitor for any worsening of confusion, weakness, chest pain, or any other concerning symptoms you have at home. Please follow-up closely with your primary care provider. Return immediately for any concerns. Print Language: Kitt[place] Coding Level of Care Code ED Biological Aide for Chg Fwd Related Data Home Medications ?Medication ?Instructions ?Recorded ?Confirmed aspirin 81 mg tablet,delayed 81 mg PO DAILY 01/22/23 09/07/24 release (Adult Low Dose Aspirin) Previous Rx's ?Medication ?Instructions ?Recorded blood-glucose meter (Accu-Chek #1 ea 05/14/23 Guide Glucose Meter) clonidine HCl 0.1 mg tablet See Rx Instructions .Route 10/01/23 .COMPLEX #30 tabs hydralazine 50 mg tablet 75 mg (1.5 x 50 mg) PO TID #135 11/13/23 tabs insulin syringe-needle U-100 1/2 #100 ea 11/19/23 mL 31 gauge x 15/64 blood sugar diagnostic (True #100 ea 12/09/23 Metrix Glucose Test Strip) clopidogrel 75 mg tablet (Plavix) 75 mg PO DAILY #30 tabs 12/09/23 losartan 100 mg tablet 100 mg PO QAM #30 tabs 12/09/23 Thumb Spica, right wrist #1 ea 02/17/24 furosemide 20 mg tablet 20 mg PO DAILY #90 tabs 03/03/24 insulin glargine 100 unit/mL 15 unit (0.15 mL) SUBCUT QAM #10 mL 03/26/24 subcutaneous solution (Lantus U-100 Insulin) Held on 06/03/24. Instructions: Adverse Reaction insulin aspar prot-insulin aspart See Rx Instructions SUBCUT BID #15 06/21/24 100 unit/mL (70-30) subcutaneous mL pen (Novolog Mix 70-30FlexPen U-100) lancets 33 gauge (OneTouch Delica #100 ea 06/21/24 Plus Lancet) pen needle, diabetic 32 gauge x #50 ea 07/14/24/ omeprazole 40 mg capsule,delayed 40 mg PO DAILY #90 caps 07/29/24 release blood-glucose meter,continuous #1 ea 08/11/24 (Dexcom G6 Director [employer]) blood-glucose sensor (Dexcom G6 #3 ea 08/11/24 Sensor device) ondansetron 4 mg disintegrating 4 mg PO Q6H PRN nausea and 08/18/24 tablet vomiting #14 tabs lactulose 10 gram/15 mL oral 10 g (15 mL) PO BID PRN 09/07/24 solution Constipation #473 mL alprazolam 0.5 mg tablet 0.5 mg PO BID #60 tabs 09/17/24 Allergies Allergy/AdvReac Type Severity Reaction Status Date / Time escitalopram (From Lexapro) Allergy Unknown hyponatremi Verified 09/20/24 22:12 a ezetimibe (From Zetia) Allergy muscle pain Verified 09/20/24 22:12 Xfyxhiq-[id number]-TaM Reductase Allergy muscle pain Verified 09/20/24 22:12 Inhibitor (Clvufux-Lsp-Gin Reductase Inhibitor) carvedilol (From Coreg) AdvReac Intermediate dizziness Verified 09/20/24 22:12
[2024-09-20 22:31] LABS: Basophils % 0.6 %; Eosinophils % 0.2 %; Hematocrit 31.8 % (36-47); Lymphocytes # 1.8 10^3/uL (0.8-4.8); Lymphocytes % 33.3 %; Mean Corpuscular HGB Conc 34.3 g/dL (30-55); Mean Corpuscular Hemoglobin 28.5 pg (27-33); Mean Platelet Volume 8.8 fL (7.4-10.4); Monocytes # 0.7 10^3/uL (0.2-0.9); Monocytes % 13.7 %; Neutrophils # 2.81 10^3/uL (1.8-7.7); Neutrophils % 51.8 %; Nucleated Red Blood Cells % 0 %; Platelet Count 311 10^3/cmm (157-399); Red Blood Count 3.83 10^6/uL (3.85-5.65); Red Cell Distribution Width 13.1 % (12.1-15.1); White Blood Count 5.41 10^3/uL (3.29-11.43)
[2024-09-20 22:50] LABS: Troponin(5th) Baseline 62 ng/L (0-10)
[2024-09-20 22:52] LABS: Alanine Aminotransferase 11 U/L (0-33); Alkaline Phosphatase 83 U/L (35-105); Anion Gap 19.4 (5-19); Aspartate Amino Transferase 20 U/L (0-32); Blood Urea Nitrogen 19 mg/dL (8-23); Calcium 9.4 mg/dL (8.5-10.5); Carbon Dioxide 22 mmol/L (22-29); Chloride 90 mmol/L (98-107); Creatinine Clr Calc Pharmacy 39.5475; Globulin 2.6 g/dL (1.3-4.6); Glucose 131 mg/dL (65-115); Osmolality Calculated 270 mOsm/kg (285-295); Potassium 3.4 mmol/L (3.5-5.1); Sodium 128 mmol/L (136-145); Total Bilirubin 0.4 mg/dL (0.15-1.2); Total Protein 6.6 g/dL (6.6-8.7)
[2024-09-20 23:57] LABS: Influenza A NEGATIVE (Negative); Influenza B NEGATIVE (Negative); Respiratory Syncytial Virus Ce NEGATIVE (Negative); SARS-CoV-2 PCR NEGATIVE (Negative)
[2024-09-21 00:04] LABS: Bilirubin Urine Negative (Negative); Blood Urine Negative (Negative); Glucose Urine UA Negative (Normal); Ketones Urine Trace (Negative); Leukocyte Esterase Urine Negative (Negative); Nitrate Urine Negative (Negative); Protein Urine Trace (Negative); Specific Gravity, Urine 1.013 (1.005-1.030); Urine Appearance Clear (CLEAR); Urine Color Yellow (Yellow)
[2024-09-21 00:07] LABS: Magnesium 1.7 mg/dL (1.7-2.3)
[2024-09-21 00:09] LABS: Add Urine Microscopic? YES; Bacteria Urine None Seen /hpf; Hyaline Casts Urine 1.65 /lpf; Squamous Epithelial Cell Urine 0-5 /hpf (0-5); WBC Urine 0-5 /hpf (0-5)
--- NOTE | 2024-09-21 00:12 | ECG_ITS ---
[facility] Date: 2024-09-21 Pat Name: Olga Anna Department: Room: Gender: Female Ambulatory Services Representative: : 1935 Requested By: Farzad Nichols Order Number: [id number] Reading MD: Measurements Intervals [place] Rate: 64 P: 6 OK: 179 QRS: -72 QRSD: 154 T: 7 QT: 455 QTc: 472 Interpretive Statements SINUS RHYTHM RIGHT BUNDLE BRANCH BLOCK [120+ ms QRS DURATION, UPRIGHT V1, 40+ ms S IN I/aVL/V4/V5/V6] LEFT ANTERIOR FASCICULAR BLOCK [QRS AXIS <= -45, QR IN I, RS IN II] MINIMAL VOLTAGE CRITERIA FOR LVH, CONSIDER NORMAL VARIANT [MEETS CRITERIA IN ONE OF: R(aVL), S(V1), R(V5), R(V5/V6)+S(V1)] SEPTAL MYOCARDIAL INFARCTION , PROBABLY OLD [40+ ms Q WAVE IN V1/V2] [email or web address]
[2024-09-21] MEDS: ALPRAZolam 0.5 mg Tablet PO ×2 (00:51)
[2024-09-21 00:54] VITALS: BP 180/81; PULSE 69; RESP 18; O2SAT 96
[2024-09-21 01:03] LABS: Troponin 5 2HR 61.97 ng/L (0-10)
[2024-09-21 01:06] LABS: Troponin 5 2HR Delta -0.03 ABS# (0-10)
[2024-09-21 01:46] VITALS: BP 130/73; PULSE 69; RESP 16; O2SAT 96
== END 2024-09-21 01:36 | disposition home or self-care (01) ==
PROVIDERS: Emergency Provider Physician Assistant; PCP Family Medicine
DX: F32.A Depression, unspecified (principal); E87.1 Hypo-osmolality and hyponatremia; E86.0 Dehydration; Z79.82 Long term (current) use of aspirin; Z79.4 Long term (current) use of insulin; Z11.52 Encounter for screening for COVID-19; Z95.1 Presence of aortocoronary bypass graft; I25.10 Atherosclerotic heart disease of native coronary artery without angina pectoris; E78.5 Hyperlipidemia, unspecified; Z86.73 Personal history of transient ischemic attack (TIA), and cerebral infarction without residual deficits; E11.9 Type 2 diabetes mellitus without complications; I10 Essential (primary) hypertension
CPT/HCPCS: 36415; 70450; 71045; 80053; 81001; 83735; 84484; 85025; 87637; 93005; 99285

== ENCOUNTER → 2024-12-09 13:21 | Outpatient (BNVA) | payer MEDICARE, MEDICAID, SELFPAY | PROVIDERS: PCP Family Medicine; Visit Provider Family Medicine | DX: I25.10 Atherosclerotic heart disease of native coronary artery without angina pectoris (principal); F41.9 Anxiety disorder, unspecified; I10 Essential (primary) hypertension; E11.9 Type 2 diabetes mellitus without complications; Z79.4 Long term (current) use of insulin | CPT/HCPCS: 80053; 80061; 83036; 85025 ==

== ENCOUNTER → 2025-01-20 10:18 | Outpatient (BNVA) | payer MEDICARE, MEDICAID, SELFPAY | PROVIDERS: PCP Family Medicine; Visit Provider Internal Medicine Cardiovascular Disease | DX: I25.118 Atherosclerotic heart disease of native coronary artery with other forms of angina pectoris (principal); I65.23 Occlusion and stenosis of bilateral carotid arteries; I11.0 Hypertensive heart disease with heart failure; I50.32 Chronic diastolic (congestive) heart failure; E78.2 Mixed hyperlipidemia | CPT/HCPCS: 99214 ==

== ENCOUNTER 2025-01-28 12:12 | Outpatient (CLI) | payer MEDICARE, MEDICAID, SELFPAY ==
--- NOTE | 2025-01-28 12:15 | USCV_ITS ---
Olga Anna Age: 89 Gender: F : 1935 Exam Date: 01/28/2025 12:22 Ordering Phys: Greta Akers MD ([email or web address]) Technologist: R Exam Location: [facility] [place] Indication: stenosis Risk Factors: Previous Vascular Surgery: Right Brachial BP: / Left Brachial BP: / Right Left Velocity (cm/s) Spectral Plaque Velocity (cm/s) Spectral Plaque Syst/Diast Broadening Syst/Diast Broadening 47.30/ 7.60 Prox CCA 65.70 / 6.90 52.90/ 11.50 Mid CCA 49.50 / 4.80 53.30/ 8.90 Distal CCA 51.90 / 7.30 62.80/ 8.50 Prox ICA 79.60 / 14.00 93.00/ 12.80 Mid ICA 107.80/ 20.80 73.20/ 14.80 Distal ICA 59.10 / 12.80 76.90 ECA 47.60 1.20 ICA/CCA 1.50 Antegrade Vertebral Antegrade 21.30/ 13.90 cm/s 57.60/ 5.40 cm/s Bi Subclavian Tri 117.1 147.0 0 0 FINDINGS Comparison:. 11/19/23 No significant elevation of systolic or diastolic velocities. Waveforms are normal. Focal irregular plaque at the bifurcations. Antegrade vertebral arteries. CONCLUSIONS Bilateral ICA stenosis less than 50%. Irregular plaque at the bifurcations. Dr. Shireen Kulkarni DO (Electronically Signed) Final Date: 28 January 2025 13:21 S
== END 2025-01-28 12:13 | disposition home or self-care (01) ==
LOC: RAD 12:13
PROVIDERS: PCP Family Medicine; Visit Provider Internal Medicine Cardiovascular Disease
DX: I65.23 Occlusion and stenosis of bilateral carotid arteries (principal)
CPT/HCPCS: 93880

== ENCOUNTER → 2025-02-09 12:41 | Outpatient (BNVA) | payer MEDICARE, MEDICAID, SELFPAY | PROVIDERS: PCP Family Medicine; Visit Provider Family Medicine | DX: R53.1 Weakness (principal) | CPT/HCPCS: 87086 ==

== ENCOUNTER → 2025-03-04 12:25 | Outpatient (BNVA) | payer MEDICARE, MEDICAID, SELFPAY | PROVIDERS: PCP Family Medicine; Visit Provider Family Medicine | DX: R30.0 Dysuria (principal); R10.9 Unspecified abdominal pain | CPT/HCPCS: 81000; 87086 ==

== ENCOUNTER → 2025-03-08 12:01 | Outpatient (BNVA) | payer MEDICARE, MEDICAID, SELFPAY | PROVIDERS: PCP Family Medicine; Visit Provider Family Medicine | DX: I10 Essential (primary) hypertension (principal); I25.10 Atherosclerotic heart disease of native coronary artery without angina pectoris; E78.2 Mixed hyperlipidemia; E11.9 Type 2 diabetes mellitus without complications; Z79.4 Long term (current) use of insulin | CPT/HCPCS: 80053; 80061; 83036; 85025 ==

== ENCOUNTER → 2025-03-16 09:39 | Outpatient (BNVA) | payer MEDICARE, MEDICAID, SELFPAY | PROVIDERS: PCP Family Medicine; Visit Provider Family Medicine | DX: I10 Essential (primary) hypertension (principal) | CPT/HCPCS: 81000 ==

== ENCOUNTER → 2025-07-14 11:43 | Outpatient (BNVA) | payer MEDICARE, MEDICAID, SELFPAY | PROVIDERS: PCP Family Medicine; Visit Provider Family Medicine | DX: I10 Essential (primary) hypertension (principal); E78.2 Mixed hyperlipidemia; I25.10 Atherosclerotic heart disease of native coronary artery without angina pectoris; E11.9 Type 2 diabetes mellitus without complications; Z79.4 Long term (current) use of insulin | CPT/HCPCS: 80053; 83036; 85025 ==